=== PATIENT | female | born 1945 | race Caucasian/White ===

== ENCOUNTER → 2019-02-04 | Outpatient (CLI) | payer MEDICARE | END | disposition home or self-care (01) | LOC: CPPFTMAIN 13:35 | PROVIDERS: ATTEND Internal Medicine | DX: J43.9 Emphysema, unspecified (principal) | CPT/HCPCS: 94060; 94726; 94729 ==

== ENCOUNTER → 2019-02-24 | Outpatient (CLI) | payer MEDICARE ==
--- NOTE | 2019-02-25 14:11 | CTL ---
EXAMINATION TYPE: CT Low Dose Lung DATE OF EXAM ORDERED: 02/24/2019 HISTORY: 73-year-old female personal history of tobacco/nicotine use. Lung cancer screening CT DLP: 62.[address] CTDI: 1.7 mGy Automated exposure control for dose reduction was used. SCREENING VISIT: Baseline COMPARISON: 10/14/2012 TECHNIQUE: Low dose computed tomography scan was performed through the chest at 1 mm thick sections a nd reconstructed images in the coronal and sagittal plane. Additional coronal MIP reconstruction perf ormed. CT DIAGNOSTIC QUALITY: Satisfactory FINDINGS: Heart normal size without pericardial effusion. Dense mitral annular calcifications are present as we ll as three-vessel coronary artery calcifications. Aorta normal caliber with moderate atherosclerotic arch calcifications involve an configuration to th e aortic arch. Scattered nonenlarged mediastinal lymph nodes measure up to 9 mm in the precarinal region. No thoraci c lymphadenopathy by CT size criteria. Moderate centrilobular emphysema with biapical pleural-parenchymal scarring and additional scattered subpleural areas of scarring in the upper lungs. Mild diffuse bronchial wall thickening. No consolidation or pleural effusion. No suspicious pulmonary nodule or mass. Visualized upper abdomen shows stable low density thickening of the left adrenal gland and a small hi lar splenule. Severe focal atherosclerotic calcifications within the mid abdominal aorta at the level of the kidney s with patent lumen estimated at 4 mm. These calcifications and luminal narrowing have significantly progressed from 2013. The right kidney is now atrophic probably from underlying right renal artery os tial stenosis. Bones: Mild degenerative disc disease mid thoracic spine. IMPRESSION: 1. Lung rads 1-negative; no suspicious pulmonary nodule or mass. 2. COPD with moderate emphysema and prominent biapical pleural-parenchymal scarring. 3. CAD and dense mitral annular calcifications. 4. Progressive intraluminal atherosclerotic calcifications within the mid abdominal aorta narrowing t he lumen to an estimated 4 mm. Patient at risk for Leriche syndrome. Consider vascular surgery referr al. 5. In addition, there is new atrophy of the right renal artery as compared to 2013 likely secondary t o right renal artery ostial stenosis. RECOMMENDATION: 1. Continue annual low-dose lung cancer screening CT. 2. A smoking cessation. 3. Vascular surgery evaluation for the significant atherosclerotic calcifications involving the mid a bdominal aorta and likely the right renal artery. FOLLOW UP CT CHEST RECOMMENDATION: [address] LUNG RAD: Lung-Rad 1 Negative
== END | disposition home or self-care (01) ==
LOC: RADCTMAIN 15:41
PROVIDERS: ATTEND Internal Medicine
DX: Z12.2 Encounter for screening for malignant neoplasm of respiratory organs (principal); J43.9 Emphysema, unspecified; I25.10 Atherosclerotic heart disease of native coronary artery without angina pectoris; I05.9 Rheumatic mitral valve disease, unspecified; Z87.891 Personal history of nicotine dependence

== ENCOUNTER 2019-09-13 12:30 | Inpatient (IN) | payer MEDICARE ==
[2019-09-13] MEDS ORDERED: MECLIZINE 12.5 MG TAB PO STA (13:07)
[2019-09-13] MEDS ORDERED: ACETAMINOPHEN TAB 325 MG TAB PO STA (13:07)
--- NOTE | 2019-09-13 13:11 | ED ---
General Adult HPI - General Chief complaint: Neuro Symptoms/Deficit Stated complaint: vision/balance issues Time Seen by Provider: 09/13/19 12:55 Source: patient, family, RN notes reviewed Mode of arrival: wheelchair Limitations: no limitations - History of Present Illness Initial comments: Patient is a pleasant 74-year-old female presenting to the emergency department with concerns regarding right eye visual changes and balance problems. Patient did have an MRI done just around 10 days ago. Around 4 days ago patient had blurry vision in her right eye that persist. Patient also feels off balance which also persist. Patient has had a history of previous visual problems and dizziness in the past. Patient went to [facility] and did have computed tomography scan done. Troponin was also elevated. Patient was seen by cardiology Dr. Fabian as well as pulmonary. They felt patient would need MRI or patient did not want to stay there and came here and said today. Patient did leave AMA. Troponin around 1 AM was 0.4. Patient does complain of headache which is moderate. Patient does have frequent headaches similar to this. Patient describes visual changes with right eye as blurry. Patient states she has had that previously as well. Patient denies any chest pain or dyspnea. - Related Data Allergies Allergy/AdvReac Type Severity Reaction Status Date / Time No Known Allergies Allergy Verified 09/13/19 12:53 Review of Systems ROS Statement: Those systems with pertinent positive or pertinent negative responses have been documented in the HPI. ROS Other: All systems not noted in ROS Statement are negative. Constitutional: Denies: fever Eyes: Reports: vision change ENT: Denies: ear pain Respiratory: Denies: cough, dyspnea Cardiovascular: Denies: chest pain, palpitations Endocrine: Denies: fatigue Gastrointestinal: Denies: abdominal pain Genitourinary: Denies: dysuria Musculoskeletal: Denies: back pain Skin: Denies: rash Neurological: Reports: as per HPI, headache, abnormal gait. Denies: weakness, confusion Past Medical History Past Medical History: Hypertension Additional Past Medical History / Comment(s): dizziness History of Any Multi-Drug Resistant Organisms: None Reported Past Surgical History: Adenoidectomy, Hysterectomy, Tonsillectomy Additional Past Surgical History / Comment(s): bowel Past Psychological History: No Psychological Hx Reported Smoking Status: Current every day smoker Past Alcohol Use History: None Reported Past Drug Use History: None Reported General Exam Limitations: no limitations General appearance: alert, in no apparent distress Head exam: Present: atraumatic, normocephalic, other (No tenderness over temporal artery) Eye exam: Present: normal appearance, PERRL, EOMI, other (Funduscopic exam without abnormality.) Neck exam: Present: normal inspection Respiratory exam: Present: normal lung sounds bilaterally Cardiovascular Exam: Present: regular rate, normal rhythm GI/Abdominal exam: Present: soft. Absent: tenderness Extremities exam: Present: normal inspection Neurological exam: Present: alert, oriented X3, CN II-XII intact. Absent: motor sensory deficit Expanded Neurological exam: Present: protecting the airway Speech: Present: fluid speech Cranial nerves: EOM's Intact: Normal, Facial Sensation: Normal Cerebellar function: Finger to Nose: Normal Sensory exam: Upper Extremity Light Touch: Normal, Lower Extremity Light Touch: Normal Motor strength exam: RUE: 5, LUE: 5, RLE: 5, LLE: 5 Eye Response: (4) open spontaneously Motor Response: (6) obeys commands Verbal Response: (5) oriented Psychiatric exam: Present: normal affect, normal mood Skin exam: Present: normal color Course Vital Signs 09/13/19 12:50 Temperature 98.0 F Pulse Rate 96 Respiratory 18 Rate Blood Pressure 144/59 O2 Sat by Pulse 95 Oximetry EKG Findings - EKG Comments: EKG Findings:: Normal sinus rhythm 95. LA 118. QRS 70. QT 372. QTC 467. Normal axis. Normal QRS. No acute ST change. Medical Decision Making - Medical Decision Making Patient is aware of plan. Case was discussed with Dr. Rogel, who will admit cov ered for Dr. Sykes. Cardiology has also been paged for consult. - Lab Data Result diagrams: 09/13/19 13:23 09/13/19 13:23 Lab Results 09/13/19 09/13/19 09/13/19 Range/Units 13:23 13:23 13:23 WBC 15.0 H (3.8-10.6) k/uL RBC 4.77 (3.80-5.40) m/uL Hgb 13.0 (11.4-16.0) gm/dL Hct 42.5 (34.0-46.0) % MCV 89.2 (80.0-100.0) fL MCH 27.3 (25.0-35.0) pg MCHC 30.6 L (31.0-37.0) g/dL RDW 15.4 (11.5-15.5) % Plt Count 288 (150-450) k/uL Neutrophils % 91 % Lymphocytes % 6 % Monocytes % 3 % Eosinophils % 0 % Basophils % 0 % Neutrophils # 13.6 H (1.3-7.7) k/uL Lymphocytes # 0.8 L (1.0-4.8) k/uL Monocytes # 0.4 (0-1.0) k/uL Eosinophils # 0.0 (0-0.7) k/uL Basophils # 0.0 (0-0.2) k/uL Hypochromasia Slight ESR 75 H (0-20) mm/hr PT 9.4 (9.0-12.0) sec INR 0.9 (<1.2) APTT 21.6 L (22.0-30.0) sec Sodium 138 (137-145) mmol/L Potassium 3.9 (3.5-5.1) mmol/L Chloride 100 (98-107) mmol/L Carbon Dioxide 28 (22-30) mmol/L Anion Gap 10 mmol/L BUN 18 H (7-17) mg/dL Creatinine 0.68 (0.52-1.04) mg/dL Est GFR (CKD-EPI)AfAm >90 (>60 ml/min/1.73 sqM) Est GFR (CKD-EPI)NonAf 87 (>60 ml/min/1.73 sqM) Glucose 154 H (74-99) mg/dL Calcium 9.5 (8.4-10.2) mg/dL Total Bilirubin 0.4 (0.2-1.3) mg/dL AST 18 (14-36) U/L ALT 19 (4-34) U/L Alkaline Phosphatase 85 (38-126) U/L Troponin I (0.000-0.034) ng/mL Total Protein 7.0 (6.3-8.2) g/dL Albumin 3.9 (3.5-5.0) g/dL 09/13/19 Range/Units 13:23 WBC (3.8-10.6) k/uL RBC (3.80-5.40) m/uL Hgb (11.4-16.0) gm/dL Hct (34.0-46.0) % MCV (80.0-100.0) fL MCH (25.0-35.0) pg MCHC (31.0-37.0) g/dL RDW (11.5-15.5) % Plt Count (150-450) k/uL Neutrophils % % Lymphocytes % % Monocytes % % Eosinophils % % Basophils % % Neutrophils # (1.3-7.7) k/uL Lymphocytes # (1.0-4.8) k/uL Monocytes # (0-1.0) k/uL Eosinophils # (0-0.7) k/uL Basophils # (0-0.2) k/uL Hypochromasia ESR (0-20) mm/hr PT (9.0-12.0) sec INR (<1.2) APTT (22.0-30.0) sec Sodium (137-145) mmol/L Potassium (3.5-5.1) mmol/L Chloride (98-107) mmol/L Carbon Dioxide (22-30) mmol/L Anion Gap mmol/L BUN (7-17) mg/dL Creatinine (0.52-1.04) mg/dL Est GFR (CKD-EPI)AfAm (>60 ml/min/1.73 sqM) Est GFR (CKD-EPI)NonAf (>60 ml/min/1.73 sqM) Glucose (74-99) mg/dL Calcium (8.4-10.2) mg/dL Total Bilirubin (0.2-1.3) mg/dL AST (14-36) U/L ALT (4-34) U/L Alkaline Phosphatase (38-126) U/L Troponin I 0.486 H* (0.000-0.034) ng/mL Total Protein (6.3-8.2) g/dL Albumin (3.5-5.0) g/dL Disposition Clinical Impression: Transient cerebral ischemia, Elevated troponin Disposition: ADMITTED IP TO THIS HOSP Is patient prescribed a controlled substance at d/c from ED?: No Referrals: Medhat Sykes DO [Primary Care Provider] - 1-2 days Decision Time: 14:44
[2019-09-13 13:45] LABS: Basophils % (A) 0 %; Eosinophils % (A) 0 %; HCT 42.5 % (34.0-46.0); Hypochromasia Slight; Lymphocytes # (A) 0.8 k/uL (1.0-4.8); Lymphocytes % (A) 6 %; MCH 27.3 pg (25.0-35.0); MCHC 30.6 g/dL (31.0-37.0); MCV 89.2 fL (80.0-100.0); Mean Platelet Volume 7.9; Monocytes # (A) 0.4 k/uL (0-1.0); Monocytes % (A) 3 %; Neutrophils # (A) 13.6 k/uL (1.3-7.7); Neutrophils % (A) 91 %; Platelet Count 288 k/uL (150-450); RBC 4.77 m/uL (3.80-5.40); RDW 15.4 % (11.5-15.5)
[2019-09-13 13:57] LABS: ALT 19 U/L (4-34); AST 18 U/L (14-36); African American GFR (CKD) >90 (>60 ml/min/1.73 sqM); Albumin 3.9 g/dL (3.5-5.0); Alkaline Phosphatase 85 U/L (38-126); Anion Gap 10 mmol/L; Blood Urea Nitrogen 18 mg/dL (7-17); Calcium 9.5 mg/dL (8.4-10.2); Carbon Dioxide 28 mmol/L (22-30); Chloride 100 mmol/L (98-107); Glucose 154 mg/dL (74-99); Non-African American GFR(CKD) 87 (>60 ml/min/1.73 sqM); Potassium 3.9 mmol/L (3.5-5.1); Sodium 138 mmol/L (137-145); Total Bilirubin 0.4 mg/dL (0.2-1.3)
[2019-09-13 14:00] LABS: INR 0.9 (<1.2); Prothrombin Time 9.4 sec (9.0-12.0)
[2019-09-13 14:02] LABS: Partial Thromboplastin Time 21.6 sec (22.0-30.0)
--- NOTE | 2019-09-13 14:03 | XR ---
EXAMINATION TYPE: XR chest 2V DATE OF EXAM: 09/13/2019 HISTORY: altered mental status. REFERENCE: Previous study dated 10/09/2012. FINDINGS: Heart is mildly prominent. The lungs are clear. Pleural spaces are clear. IMPRESSION: NO ACTIVE INTRATHORACIC DISEASE.
[2019-09-13 14:35] LABS: Erythrocyte Sedimentation Rate 75 mm/hr (0-20)
[2019-09-13] MEDS ORDERED: ASPIRIN 325 MG TAB PO STA (14:44)
[2019-09-13] MEDS: SODIUM CHLORIDE 0.9% 1,000 ML IV SCH (15:24)
--- NOTE | 2019-09-13 15:30 | US ---
EXAMINATION TYPE: US carotid duplex BILAT DATE OF EXAM: 09/13/2019 COMPARISON: NONE CLINICAL HISTORY: Stenosis. Stenosis, vision changes EXAM MEASUREMENTS: RIGHT: Peak Systolic Velocity (PSV) cm/sec ----- Right CCA: 93.3 ----- Right ICA: 214.4 ----- Right ECA: 497.1 ICA/CCA ratio: 2.3 RIGHT: End Diastole cm/sec ----- Right CCA: 20.8 ----- Right ICA: 27.6 ----- Right ECA: 46.3 LEFT: Peak Systolic Velocity (PSV) cm/sec ----- Left CCA: 82.7 ----- Left ICA: 480.2 ----- Left ECA: 503.0 ICA/CCA ratio: 5.8 LEFT: End Diastole cm/sec ----- Left CCA: 14.1 ----- Left ICA: 50.7 ----- Left ECA: 0.0 VERTEBRALS (direction of flow): Right Vertebral: Antegrade Left Vertebral: Antegrade Rhythm: Normal Suboptimal study per technologist as patient unable to hold breath. Moderate to severe eccentric shad owing plaque seen centered near bilateral carotid bulbs. Increased peak systolic velocities and abnor mal ratios bilaterally with also elevated left internal carotid artery end-diastolic velocity. Abnorm al velocities also present in bilateral external carotid arteries. IMPRESSION: Suboptimal study. Severe apical scarring changes bilaterally with hemodynamically signif icant stenosis likely present in bilateral internal carotid arteries. Degree of stenosis estimated 50 -69% on the right and 70-99% on the left. Further investigation with direct catheter angiogram, CTA, or MRA of the neck can BE performed to further evaluate and/or treat. Criteria for Assigning % of Stenosis / Diameter reduction (Estimation based on the indirect measurements of the internal carotid artery velocities (ICA PSV). 1. Normal (no stenosis)=ICA PSV < 125 cm/s: ratio < 2.0: ICA EDV<40 cm/s. 2. Less than 50% stenosis=ICA PSV < 125 cm/s: ratio < 2.0: ICA EDV<40 cm/s. 3. 50 to 69% stenosis=ICA PSV of 125 to 230 cm/s: ration 2.0 ? 4.0: ICA EDV 40-100 cm/s. 4. Greater than 70% stenosis to near occlusion= ICA PSV > 230 cm/s: ratio > 4.0: ICA EDV > 100 cm/s. 5. Near occlusion= ICA PSV velocities may be low or undetectable: variable ratio and ICA EDV. 6. Total occlusion=unable to detect flow.
[2019-09-13] MEDS ORDERED: ACETAMINOPHEN TAB 500 MG TAB PO PRN (15:38)
[2019-09-13] MEDS ORDERED: ALPRAZolam 0.25 MG TAB PO PRN (15:38)
[2019-09-13] MEDS ORDERED: HYDROcodone/APAP 5-325MG 1 EACH TAB PO PRN (15:38)
--- NOTE | 2019-09-13 16:32 | HP ---
HISTORY AND PHYSICAL I am covering for Dr. Sykes. DATE OF SERVICE: 09/13/2019 CHIEF COMPLAINTS: Visual difficulties. HISTORY OF PRESENT ILLNESS: This 74-year-old woman with a past medical history of multiple medical problems including hypertension, dizziness, adenoidectomy, hysterectomy, being followed by Dr. Medhat Sykes in the outpatient setting, was having difficulty with vision from last Saturday. The patient apparently had an MRI in [facility]. The results are not available at this time. Because of difficulties, patient also had some difficulty walking and some unsteadiness of gait and falling more to the right side. The patient went to [facility] and MRI could not be done because of that reason, patient left the hospital AGAINST MEDICAL ADVICE and checked into [facility] ER at this time. In the ER, the patient noticed some weakness on the right side and the patient also had elevated troponin 0.486, suggesting possible acute [id number]-elevation myocardial infarction. Patient admitted for further evaluation and treatment. There is no history of fever, rigors or chills. No history of headache, loss of consciousness or seizures at this time. PAST MEDICAL HISTORY: History of hypertension, history of dizziness history of adenoidectomy, hysterectomy. MEDICATIONS: Prior to admission include home medications are: 1. Antivert 25 mg daily p.r.n. 2. Cozaar 50 mg p.o. daily. ALLERGIES: None. FAMILY HISTORY: No history of heart disease or strokes in the family. SOCIAL HISTORY: History of every day smoking. No history of alcohol intake. REVIEW OF SYSTEMS: ENT: No diminished vision, hearing. CARDIOVASCULAR system is as mentioned earlier. RESPIRATORY: As mentioned earlier. GI no nausea. no dysuria. NERVOUS SYSTEM as mentioned earlier. ALLERGIES/IMMUNOLOGY: No asthma or hayfever. MUSCULOSKELETAL as mentioned earlier. HEMATOLOGY/ONCOLOGY: No history of anemia. ENDOCRINE: No history of diabetes or hypothyroidism. CONSTITUTIONAL: As mentioned earlier. DERMATOLOGY negative. RHEUMATOLOGY: Negative. PSYCHIATRIC: As mentioned earlier. PHYSICAL EXAMINATION: GENERAL: Alert and oriented times three. VITAL SIGNS: Pulse 87, blood pressure 128/70, respiration 20, temperature 98 degrees, pulse ox 94% on room air. HEENT: Conjunctivae normal. Oral mucosa moist. NECK is no jugular venous distention. No carotid bruit. No lymph node enlargement. CARDIOVASCULAR system: S1, S2 muffled. RESPIRATION: Breath sounds diminished in the bases. No rhonchi. No crackles. ABDOMEN: Soft, nontender. No mass palpable. LEGS no edema. No swelling. NERVOUS SYSTEM higher functions as mentioned earlier. Otherwise, cranial nerves, right homonymous hemianopsia present, otherwise minimal weakness on the right side and increase in finger to nose incoordination also present. Gait is ataxic. SKIN: No ulcer, rash or bleeding. JOINTS: No active deforming arthropathy. LABS: WBC 15.8, hemoglobin 13, and the INR is 0.9. Sodium 130, potassium 3.9 and troponin 0.486. ASSESSMENT: 1. Right homonymous hemianopsia and weakness, rule out left occipital acute cerebrovascular accident and acute stroke. 2. Bilateral carotid stenosis. 3. Troponin 0.486, rule out acute yyt-JE-irhuqkd-elevation myocardial infarction. 4. Increased random blood sugar. 5. Increased WBC, possibly reactive. 6. History of hypertension. 7. History of dizziness. 8. History of adenoidectomy. 9. History of hysterectomy. 10.History of tonsillectomy. 11.History of continued ongoing nicotine dependence. RECOMMENDATIONS AND DISCUSSION: In this 74-year-old woman who presented with multiple complex medical issues, we will monitor the patient closely, continue the current medications, symptomatic treatment. Recommend monitor blood pressure closely. Otherwise neurology evaluation. The patient will require MRI to elucidate the anatomical sites of the stroke. A 2D echo with Doppler was also done which showed bilateral stenosis 50-60 percent right and 70 to 90% on the left. Recommend stroke protocol and possible transfer to a stroke center and vascular surgery consultation also may be needed. Further recommendations to follow. MMODL / IJN: [id number] /
--- NOTE | 2019-09-13 17:31 | CT ---
EXAMINATION TYPE: CT angio head neck DATE OF EXAM: 09/13/2019 HISTORY: cva COMPARISON: Carotid ultrasound earlier today. CT DLP: 359.5 mGycm. Automated Exposure Control for Dose Reduction was Utilized. TECHNIQUE: CTA scan of the head and neck are performed with IV Contrast, patient injected with 65cc mL of Isovue 370, axial images are obtained, coronal and sagittal reformatted images are reviewed. Th ree-D reconstructed images are created on an independent workstation and reviewed. FINDINGS: Carotid/Vascular Structures: Moderate peripheral plaque in the arch extending into branch vessels . B ovine type arch which is normal variant. Right common carotid artery shows normal origin from the rig ht brachiocephalic artery. Mild to moderate noncalcified plaque posteriorly proximal to mid segment r ight common carotid artery. More severe mixed plaque right carotid bulb extends into proximal interna l and external carotid arteries with significant stenosis at origin of the right external carotid art praveen greater than 90%. No significant stenosis in the right internal carotid artery is present. Mild t o moderate eccentric calcified plaque proximal segment tortuous course mid segment seen. Tqcg-pz-bvul rate peripheral calcified plaque supraclinoid segment. 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 [place] lumen diameter narrows to 2. 9 mm axial image 16 with reconstitution to 6.6 mm superior to this. There is diameter narrowing to 2. 6 mm raw data image 48 noted. Mild peripheral plaque along course of left common carotid artery. Severe calcified plaque left carot id bulb extends into proximal internal and external carotid arteries. Significant stenosis origin of left internal carotid artery is present. Lumen diameter narrowing difficult to accurately measure due to prominent calcified plaque but suspected under 1 mm with reconstitution to 6.0 mm superior to thi s. Significant stenosis left external carotid artery but not as severe as left internal or right exte rnal carotid artery is noted. Remainder internal carotid artery shows [id number] peripheral emmanuel cified plaque. There is patent anterior communicating artery. There is no significant focal stenosis or aneurysmal c hange in the anterior circulation. There is codominant vertebrobasilar system patent to basilar junct ion. Moderate calcified plaque with tortuosity at origin of left vertebral artery. There is no signif icant focal stenosis or aneurysmal change in the posterior circulation. Hypoplastic bilateral posteri or to indicating arteries are present. Other: Grade 1 retrolisthesis C5 on C6 with mild to moderate disc space narrowing and spurring. Mild to moderate disc space narrowing and spurring C6-C7. Scattered subcentimeter hypodense thyroid nodules appreciated bilaterally. Moderate emphysematous change noted in the visualized upper lungs. IMPRESSION: 1. No significant stenosis or aneurysmal change at the level of the jackson of [place]. 2. Confirmation of severe focal plaque left carotid bulb causing significant stenosis at origin of le ft internal carotid artery. Degree of stenosis measures near 90%. No significant stenosis in the righ t internal carotid artery as more severe plaque causes significant stenosis at origin of right health administrator al carotid artery between 90-99%. 3. 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
[2019-09-13] MEDS ORDERED: MECLIZINE 25 MG TAB PO PRN (18:30)
[2019-09-13] MEDS: NICOTINE 21MG/24HR PATCH TRANSDERM SCH (18:51)
[2019-09-13 19:38] LABS: Appearance,Urine Clear (Clear); Color,Urine Yellow
[2019-09-13 19:39] LABS: Bilirubin,Urine Negative (Negative); Glucose,Urine (UA) 1+ (Negative); Ketones,Urine Negative (Negative); Protein,Urine Negative (Negative); Specific Gravity,Urine 1.005 (1.001-1.035)
[2019-09-13 19:40] LABS: Blood,Urine Negative (Negative); Leukocyte Esterase,Urine Negative (Negative); Nitrite,Urine Negative (Negative); Urobilinogen,Urine <2.0 mg/dL (<2.0)
[2019-09-13] MEDS: HEPARIN SODIUM,PORCINE 5,000 UNIT/ML 1 ML VIAL SQ SCH (20:55)
[2019-09-14] MEDS: SODIUM CHLORIDE 0.9% 1,000 ML IV SCH ×3 (04:32→20:25)
[2019-09-14] MEDS: PANTOPRAZOLE 40 MG TABLET PO SCH ×2 (06:05→10:17)
[2019-09-14 06:08] LABS: Basophils % (A) 0 %; Eosinophils % (A) 0 %; HCT 36.7 % (34.0-46.0); HGB 10.8 gm/dL (11.4-16.0); Hypochromasia Marked; Lymphocytes # (A) 1.7 k/uL (1.0-4.8); Lymphocytes % (A) 17 %; MCH 26.9 pg (25.0-35.0); MCHC 29.5 g/dL (31.0-37.0); MCV 91.3 fL (80.0-100.0); Mean Platelet Volume 7.7; Monocytes # (A) 0.4 k/uL (0-1.0); Monocytes % (A) 4 %; Neutrophils # (A) 7.9 k/uL (1.3-7.7); Neutrophils % (A) 77 %; Platelet Count 236 k/uL (150-450); RBC 4.01 m/uL (3.80-5.40); RDW 15.7 % (11.5-15.5); WBC 10.2 k/uL (3.8-10.6)
[2019-09-14 06:15] LABS: African American GFR (CKD) >90 (>60 ml/min/1.73 sqM); Anion Gap 2 mmol/L; Blood Urea Nitrogen 16 mg/dL (7-17); Carbon Dioxide 28 mmol/L (22-30); Chloride 110 mmol/L (98-107); Cholesterol 150 mg/dL (<200); Glucose 86 mg/dL (74-99); HDL Cholesterol 46 mg/dL (40-60); LDL Cholesterol,Calculated 78 mg/dL (0-99); Non-African American GFR(CKD) >90 (>60 ml/min/1.73 sqM); Potassium 4.1 mmol/L (3.5-5.1); Sodium 140 mmol/L (137-145); Triglycerides 128 mg/dL (<150)
[2019-09-14] MEDS ORDERED: ATORVASTATIN 20 MG TAB PO SCH (09:00)
--- NOTE | 2019-09-14 09:56 | MR ---
EXAMINATION TYPE: MR brain wo/w con DATE OF EXAM: 09/14/2019 COMPARISON: 09/13/2019 HISTORY: Status and visual changes TECHNIQUE: Multiplanar, multisequence images of the brain and brainstem is performed without and with IV contras t, utilizing 5.5 mL intravenous Gadavist . FINDINGS: Diffusion weighted images demonstrate abnormal signal involving the seema on the right as we ll as the left cerebellar peduncle and left cerebellar hemisphere. There is an additional focus withi n the cerebellar vermis. All measure less than 1 cm. Additionally there is a focal area of abnormal s ignal measuring 6 mm within the right basal ganglia and deep white matter. There are 2 additional pun ctate areas within the right frontal and parietal white matter. There is mild generalized degenerative change with multifocal areas of abnormal signal in the white m atter which are nonspecific but most typical remote ischemic change. Small focal areas of abnormal si gnal involving the cerebral peduncle are compatible with remote ischemic change. Midline structures demonstrate normal morphology. The craniocervical junction appears within normal limits. Post contrast images demonstrate no abnormal enhancement. The dural venous sinuses appear pa tent. There is a prominent cisterna magna. Changes of chronic mastoiditis and sinusitis noted. There is a d egree of ectasia of the optic nerves with a trace amount of fluid surrounding the sheath. Report call ed to the patient's nurse. IMPRESSION: 1. There are multiple 1 cm or less areas of abnormal signal on diffusion involving different vascular distributions. Findings compatible with acute ischemia. Given the multiplicity of vascular distribut ion consider embolic phenomenon. 2. Degenerative and nonspecific white matter changes most typical of remote ischemia. 3. Chronic sinusitis and mastoiditis.
--- NOTE | 2019-09-14 10:06 | P.GSCN ---
History of Present Illness Consult date: 09/14/19 Reason for Consult: Possible TIA, bilateral internal carotid artery stenosis History of present illness: This is a pleasant 74-year-old female who presented to the emergency department yesterday with complaints of right visual disturbances and dizziness that started last Saturday. Patient states that she was preparing supper and noticed that her her vision in her right eye had become blurry, lasting longer than normal. She felt that she became unsteady on her feet. Denies any falls. Patient states she called Dr. Sykes office on Saturday and they advised her to go to the emergency department. The patient went to [facility] on Saturday and was admitted until Saturday. Patient states that she felt nothing was being done so she left AGAINST MEDICAL ADVICE and came to this hospital yesterday. States that she does have chronic dizziness as well as visual disturbances that she reports as floaters. She states that she has seen an near east archeology professor in the past and states that it's related to migraine headaches. However she denies having migraine headaches. She currently states that she is asymptomatic. Denies any upper or lower extremity weakness bilaterally, speech difficulties, difficulty swallowing, still states that she has some mild blurriness in the right eye. She currently denies any shortness of breath or chest pain, or any headaches. States that she is able to ambulate without assistance. She states that she had a carotid ultrasound done approximately [address] Sykes office, and stated that it was normal. He has a past medical history that includes hypertension, dizziness, and smoking. She states she smokes 1 pack per day for approximately the past 50 years. Her home medications include Antivert as needed and Cozaar. She had elevated troponin upon admission. Carotid duplex was completed showing severe apical scarring changes bilaterally with hemodynamically significant stenosis likely present in bilateral internal carotid arteries. Degree of stenosis estimated 50-69% on the right and 70-99% on the left. Further investigation with direct catheter angiogram, CTA, or MRA of the neck can be performed to further evaluate and/or treat. CTA of head and neck was completed which showed no significant stenosis or aneurysmal change level burns paiute of [place]. Confirmation of severe focal plaque left carotid bulb causing significant stenosis at origin of left internal carotid artery. Degree of stenosis measures near 90%. No significant stenosis of the right internal carotid artery has more severe plaque causes significant stenosis at the origin of the right external carotid artery between 19 and 99%. 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 Review of Systems Review of systems was completed, all pertinent positives and negatives as stated in the HPI. Past Medical History Past Medical History: COPD, Hypertension Additional Past Medical History / Comment(s): dizziness History of Any Multi-Drug Resistant Organisms: None Reported Past Surgical History: Adenoidectomy, Hysterectomy, Tonsillectomy Additional Past Surgical History / Comment(s): bowel resection Past Psychological History: No Psychological Hx Reported Smoking Status: Current every day smoker Past Alcohol Use History: None Reported Past Drug Use History: None Reported - Past Family History Mother Family Medical History: Cancer, Congestive Heart Failure (CHF) Father Family Medical History: Unable to Obtain Medications and Allergies Home Medications Medication Instructions Recorded Confirmed Type Losartan [Cozaar] 50 mg PO DAILY 09/13/19 09/13/19 History Meclizine [Antivert] 25 mg PO DAILY PRN 09/13/19 09/13/19 History Allergies Allergy/AdvReac Type Severity Reaction Status Date / Time No Known Allergies Allergy Verified 09/13/19 14:50 Surgical - Exam Vital Signs Temp Pulse Resp BP Pulse Ox 98.0 F 96 18 144/59 95 09/13/19 12:50 09/13/19 12:50 09/13/19 12:50 09/13/19 12:50 09/13/19 12:50 General appearance: The patient is alert, oriented, in no acute distress. HET: Head is normocephalic and atraumatic. Pupils are equal and reactive. Oropharynx is clear without lesions. Neck: Supple without lymphadenopathy. Trachea midline. Audible bruit bilaterally, greater left than right. Heart: S1 S2. Regular rate and rhythm. Lungs: No crackles or wheezes are heard. Abdomen: Soft, nontender, nondistended with bowel sounds. Extremities: Normal skin color and turgor. No cyanosis, rash, ulceration, clubbing, or edema. Radial and pedal pulses are 2/4 bilaterally. Neurological: No focal deficits. Alert and oriented 3. Patient answers questions and follows commands appropriately. Strength and sensation are grossly intact. Speech is fluent, no facial asymmetry. Bilateral upper and lower extremity strength 5 out of 5. Results Carotid duplex: Reviewed CT angiogram head and neck: Reviewed MRI brain: Pending results - Labs 09/14/19 05:43 09/14/19 05:43 Abnormal Lab Results - Last 24 Hours (Table) 09/13/19 09/13/19 09/13/19 Range/Units 13:23 13:23 13:23 WBC 15.0 H (3.8-10.6) k/uL Hgb (11.4-16.0) gm/dL MCHC 30.6 L (31.0-37.0) g/dL RDW (11.5-15.5) % Neutrophils # 13.6 H (1.3-7.7) k/uL Lymphocytes # 0.8 L (1.0-4.8) k/uL ESR 75 H (0-20) mm/hr APTT 21.6 L (22.0-30.0) sec Chloride (98-107) mmol/L BUN 18 H (7-17) mg/dL Glucose 154 H (74-99) mg/dL Calcium (8.4-10.2) mg/dL Troponin I (0.000-0.034) ng/mL 09/13/19 09/14/19 09/14/19 Range/Units 13:23 05:43 05:43 WBC (3.8-10.6) k/uL Hgb 10.8 L (11.4-16.0) gm/dL MCHC 29.5 L (31.0-37.0) g/dL RDW 15.7 H (11.5-15.5) % Neutrophils # 7.9 H (1.3-7.7) k/uL Lymphocytes # (1.0-4.8) k/uL ESR (0-20) mm/hr APTT (22.0-30.0) sec Chloride 110 H (98-107) mmol/L BUN (7-17) mg/dL Glucose (74-99) mg/dL Calcium 8.0 L (8.4-10.2) mg/dL Troponin I 0.486 H* (0.000-0.034) ng/mL Diabetes panel 09/13/19 09/14/19 Range/Units 13:23 05:43 Sodium 138 140 (137-145) mmol/L Potassium 3.9 4.1 (3.5-5.1) mmol/L Chloride 100 110 H (98-107) mmol/L Carbon Dioxide 28 28 (22-30) mmol/L BUN 18 H 16 (7-17) mg/dL Creatinine 0.68 0.54 (0.52-1.04) mg/dL Glucose 154 H 86 (74-99) mg/dL Calcium 9.5 8.0 L (8.4-10.2) mg/dL AST 18 (14-36) U/L ALT 19 (4-34) U/L Alkaline Phosphatase 85 (38-126) U/L Total Protein 7.0 (6.3-8.2) g/dL Albumin 3.9 (3.5-5.0) g/dL Triglycerides 128 (<150) mg/dL HDL Cholesterol 46 (40-60) mg/dL Calcium panel 09/13/19 09/14/19 Range/Units 13:23 05:43 Calcium 9.5 8.0 L (8.4-10.2) mg/dL Albumin 3.9 (3.5-5.0) g/dL Pituitary panel 09/13/19 09/14/19 Range/Units 13:23 05:43 Sodium 138 140 (137-145) mmol/L Potassium 3.9 4.1 (3.5-5.1) mmol/L Chloride 100 110 H (98-107) mmol/L Carbon Dioxide 28 28 (22-30) mmol/L BUN 18 H 16 (7-17) mg/dL Creatinine 0.68 0.54 (0.52-1.04) mg/dL Glucose 154 H 86 (74-99) mg/dL Calcium 9.5 8.0 L (8.4-10.2) mg/dL Adrenal panel 09/13/19 09/14/19 Range/Units 13:23 05:43 Sodium 138 140 (137-145) mmol/L Potassium 3.9 4.1 (3.5-5.1) mmol/L Chloride 100 110 H (98-107) mmol/L Carbon Dioxide 28 28 (22-30) mmol/L BUN 18 H 16 (7-17) mg/dL Creatinine 0.68 0.54 (0.52-1.04) mg/dL Glucose 154 H 86 (74-99) mg/dL Calcium 9.5 8.0 L (8.4-10.2) mg/dL Total Bilirubin 0.4 (0.2-1.3) mg/dL AST 18 (14-36) U/L ALT 19 (4-34) U/L Alkaline Phosphatase 85 (38-126) U/L Total Protein 7.0 (6.3-8.2) g/dL Albumin 3.9 (3.5-5.0) g/dL Assessment and Plan Assessment: 1. Bilateral internal carotid artery stenosis, left greater than right. 2. Visual changes and disturbances of the right eye 3. Gait and balance instability 4. Hypertension 5. Chronic dizziness/vertigo Plan: Discussed patient with Dr. Hassan. Reviewed CT angiogram and carotid duplex studies with Dr. Hassan. Awaiting MRI results. Echocardiogram has been ordered. Will start patient on aspirin, Plavix, and atorvastatin. Neurology and cardiology also on consult. Further recommendations to follow, pending MRI results. Recommend smoking cessation to patient. Patient is already on nicotine patch at this time. You for this consultation and allowing us to take part plan of care of this patient during her hospital stay. The above dictated assessment and findings were discussed with Dr. Hassan. The impression and plan of care have been directed as dictated.
[2019-09-14] MEDS: HEPARIN SODIUM,PORCINE 5,000 UNIT/ML 1 ML VIAL SQ SCH ×2 (10:17→20:24)
[2019-09-14] MEDS: NICOTINE 21MG/24HR PATCH TRANSDERM SCH (10:17)
[2019-09-14] MEDS: LOSARTAN 50 MG TAB PO SCH (10:17)
[2019-09-14] MEDS ORDERED: ASPIRIN 325 MG TAB PO SCH (12:00)
--- NOTE | 2019-09-14 12:47 | CONS ---
CONSULTATION CHIEF COMPLAINT: Focal weakness. HISTORY OF PRESENT ILLNESS: This is a 74-year-old lady with history of hypertension and prior episodes of dizziness, who presented to hospital with visual difficulty. She had problems with the right eye vision. Initially admitted to [facility] [place] from where she left against medical advise and admitted herself to the emergency room at [facility]. Her predominant symptom is in the form of right-sided weakness and right eye vision loss, both of which have improved since being admitted to hospital. I have been consulted because of mild elevation in troponin. I only have 1 troponin value on her. EKG does not reveal ischemic changes and she does not have any cardiac symptoms. She denies chest pain, difficulty in breathing, palpitations or syncope. She had a bilateral carotid duplex study done that showed a 70% to 90% stenosis involving left internal carotid artery and a 50% to 60 percent involving right internal carotid artery. An echocardiogram had been ordered and the patient is to have an MRI also. Patient's predominant problem is her CVA. The elevated troponin is of no clear clinical significance at this time. I am going to obtain further troponins to see what happens to the troponin level. PAST MEDICAL HISTORY: Significant for hypertension, dizziness. PAST SURGICAL HISTORY: Significant for hysterectomy and adenoidectomy. MEDICATIONS: Medications at home included Antivert and Cozaar. ALLERGIES: There are no known drug allergies. FAMILY HISTORY: Negative for premature coronary artery disease. SOCIAL HISTORY: Significant for smoking. There is no history of EtOH abuse or drug abuse. REVIEW OF SYSTEMS: HEENT is significant for diminished vision. Cardiovascular negative. Respiratory negative. GI negative. : Negative. HAND EMBROIDERER as described above. ALLERGY/IMMUNOLOGY negative. ENDOCRINE: Negative. HAND EMBROIDERER is as described above. CONSTITUTIONAL: Negative. ONCOLOGICAL negative. RHEUMATOLOGICAL negative. PSYCH negative. PHYSICAL EXAMINATION: On exam, patient is comfortable at rest. Vital signs are stable. There is no jugular venous distention. Carotid upstroke is normal. There is no bruit. Chest exam reveals good air entry bilaterally. Heart exam reveals first and second heart sounds and a systolic murmur at the left lower sternal border. ABDOMEN: Soft. Exam of extremities did not reveal any edema. Peripheral pulses are felt. HAND EMBROIDERER exam reveals mild weakness of the right side. LABS: Show a hemoglobin of 10.8, platelet count is 236, potassium is 4.1. One set of troponin is mildly elevated. LDL cholesterol is 78. ASSESSMENT: 1. Elevated troponin. 2. Cerebrovascular accident with right hemiparesis. 3. Severe left internal carotid artery stenosis. PLAN: Treat the patient with aspirin, Lipitor, Cozaar. Have optimal blood pressure control. I will obtain a 2D echo to assess her LV function. If she is not undergoing any carotid intervention at this time, we can discharge her home and pursue her workup in the outpatient setting. Once the stroke issues resolve, I am going to perform a stress test on her to evaluate for ischemia and if necessary, workup. MMODL / IJN: [id number] /
[2019-09-14] MEDS: CLOPIDOGREL 75 MG TAB PO SCH (17:43)
--- NOTE | 2019-09-14 18:19 | P.PN ---
Subjective Progress Note Date: 09/14/19 This is a 74-year-old female admitted with possible acute CVA, bilateral carotid stenosis, elevated troponins and multiple other medical issues. Brain MRI reported multiple 1 cm or less areas of abnormal signal on diffusion involving different vascular distributions compatible with acute ischemia, possible embolic phenomenon. Evaluated by vascular surgery, recommendations noted and appreciated. Patient reports she has seen an locomotive firer in the past regarding floaters in both eyes and dizziness that were attributed to migraine headaches, yet she denies migraine headaches. Continues to have some right eye blurriness this morning-but states improved, denies motor strength loss. Reports fluctuating dizziness with exertion and at rest. Denies chest pain, palpitations or shortness of breath. Systolic pressures ranging from 120s to 170s. Maintaining O2 sats in the 90s on room air. Afebrile, normal WBC. Evaluated by cardiology, serial troponins ordered as initial troponin elevated. Objective - Vital Signs Vital signs: Vital Signs Temp 97.8 F 09/14/19 08:00 Pulse 88 09/14/19 08:00 Resp 18 09/14/19 08:00 BP 177/75 09/14/19 08:00 Pulse Ox 94 L 09/14/19 08:00 Intake & Output 09/13/19 09/14/19 09/14/19 18:59 06:59 18:59 Weight 54.431 kg 59.6 kg Other: # Voids 1 - Exam PHYSICAL EXAM: VITAL SIGNS: As above GENERAL: Sitting up in bed, no acute distress HEENT: No facial asymmetry, Conjunctivae normal. eyes normal. NECK: Supple, No JVD. No thyroid enlargement. No LNs. Trachea midline, Left greater than right Bilateral bruit- CARDIOVASCULAR: S1, S2 regular. Systolic murmur. RESPIRATION: Breath sounds diminished in the bases. No rhonchi or crackles. No bronchial breathing. ABDOMEN: Soft, nontender . No guarding. no masses palpable. No ascites, No hepatosplenomegaly.Bowel sounds heard. LEGS: No edema. no swelling PSYCHIATRY: Alert and oriented X3, mood and affect normal. NERVOUS SYSTEM: Cranial N 2-12 grossly normal. Moves all 4 limbs. Speech fluent, appropriate. No focal deficits. Strength and sensation grossly intact. Skin: Warm and dry, no rash - Labs CBC & Chem 7: 09/14/19 05:43 09/14/19 05:43 Labs: Abnormal Lab Results - Last 24 Hours (Table) 09/13/19 09/13/19 09/13/19 Range/Units 13:23 13:23 13:23 WBC 15.0 H (3.8-10.6) k/uL Hgb (11.4-16.0) gm/dL MCHC 30.6 L (31.0-37.0) g/dL RDW (11.5-15.5) % Neutrophils # 13.6 H (1.3-7.7) k/uL Lymphocytes # 0.8 L (1.0-4.8) k/uL ESR 75 H (0-20) mm/hr APTT 21.6 L (22.0-30.0) sec Chloride (98-107) mmol/L BUN 18 H (7-17) mg/dL Glucose 154 H (74-99) mg/dL Calcium (8.4-10.2) mg/dL Troponin I (0.000-0.034) ng/mL 09/13/19 09/14/19 09/14/19 Range/Units 13:23 05:43 05:43 WBC (3.8-10.6) k/uL Hgb 10.8 L (11.4-16.0) gm/dL MCHC 29.5 L (31.0-37.0) g/dL RDW 15.7 H (11.5-15.5) % Neutrophils # 7.9 H (1.3-7.7) k/uL Lymphocytes # (1.0-4.8) k/uL ESR (0-20) mm/hr APTT (22.0-30.0) sec Chloride 110 H (98-107) mmol/L BUN (7-17) mg/dL Glucose (74-99) mg/dL Calcium 8.0 L (8.4-10.2) mg/dL Troponin I 0.486 H* (0.000-0.034) ng/mL Assessment and Plan Assessment: Right homonymous hemianopsia, possible acute CVA, possible embolic phenomenon Bilateral internal carotid artery stenosis, left greater than right Elevated troponins, possible acute NSTEMI, serial troponins in progress Hypertension Chronic dizziness, vertigo Ongoing nicotine dependence Plan: Continue on current medication regime ,monitoring and symptomatic treatment. Echo pending. Optimizing blood pressure as per cardiology. Orthostatic vitals every shift. Scheduled for PATI tomorrow .Evaluated by vascular, recommendations noted including outpatient carotidectomy. Outpatient stress test also discussed with patient as per cardiology. Neurology evaluation and review of MRI pending. Follow closely with all consults. Prognosis guarded given multiple complex medical issues. The impression and plan of care has been dictated as directed. : I performed a history and examination of this patient, discussed the same with the dictator. I agree with the dictator's note ,documented as a scribe. Any additional findings or plans will be noted.
--- NOTE | 2019-09-14 18:35 | P.CNNES ---
History of Present Illness Consult date: 09/14/19 Reason for Consult: abnormal MRI, visual difficulty and dizziness Chief complaint: visual difficulty. Weakness on the right side of body. History of Present Illness: this is a new neurology consult for 74-year-old female who was initially admitted at [facility] but left AMA to be admitted to the emergency room at [facility]. The patient reports that prior to admission over the past several months she has been having dizzy spells that are occurring while cooking or sitting. Sometimes associated with nausea. She began having visual problems that she describes as a horizontal visual field cut in both eyes that also began within the last month. She has seen her primary care physician for this and was to be referred out for an outpatient workup. The patient states that overall she has not been doing well over the last 2-3 years and still however continues to smoke regularly. Patient does have COPD but despite this she has not been motivated to stop smoking. This past Saturday the patient had an episode of falling while trying to walk. However today since admission she's been walking with assistance. Patient denies ever having any knowledge of having a stroke. She has seen an outside pr ovider for the spells of dizziness and horizontal visual cut prior to admission and was told that these were migraines. The patient also reports that over the past several months she's been having increasing difficulty with swallowing liquids and solids. Currently the patient is experiencing some right sided weakness but this is fluctuating and improving. I have reviewed the CT angiogram head and neck which shows extensive atheros clerotic disease involving the extracranial system. There is severe mixed plaque in the right carotid bulb and proximal ICA and ECA with significant stenosis at the origin of the right ECA measuring more than 90%. There is no stenosis noted in the right internal carotid artery. There is mild to moderate peripheral calcified plaque in the supraclinoid segment. 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 There is also mild plaque along the left common carotid artery. Severe calcified plaque in the left carotid bulb extending into the proximal ICA and ECA. Significant stenosis in the left ICA. The brain MRI does show multiple 1 m areas of abnormality in DWI consistent with potential cardioembolic source for the infarctions. Cardiothoracic surgery is now on the case as well as cardiology. Patient has been placed on dual antiplatelet therapy which is appropriate in this setting. Current plan is to proceed with further workup for embolic source such as with a transesophageal echo. Review of Systems a 10 point review of systems was obtained with positive pertinent negatives related to the history of present illness. The patient does report poor sleep continuity which is suspicious for sleep disordered breathing. Past Medical History Past Medical History: COPD, Hypertension Additional Past Medical History / Comment(s): dizziness History of Any Multi-Drug Resistant Organisms: None Reported Past Surgical History: Adenoidectomy, Hysterectomy, Tonsillectomy Additional Past Surgical History / Comment(s): bowel resection Past Psychological History: No Psychological Hx Reported Smoking Status: Current every day smoker Past Alcohol Use History: None Reported Past Drug Use History: None Reported - Past Family History Mother Family Medical History: Cancer, Congestive Heart Failure (CHF) Father Family Medical History: Unable to Obtain Medications and Allergies Home Medications Medication Instructions Recorded Confirmed Type Losartan [Cozaar] 50 mg PO DAILY 09/13/19 09/13/19 History Meclizine [Antivert] 25 mg PO DAILY PRN 09/13/19 09/13/19 History Allergies Allergy/AdvReac Type Severity Reaction Status Date / Time No Known Allergies Allergy Verified 09/13/19 14:50 Physical Examination - Vital Signs Vital Signs: Vital Signs Temp Pulse Resp BP Pulse Ox 09/14/19 12:00 82 20 164/72 94 L 09/14/19 08:00 97.8 F 88 18 177/75 94 L 09/14/19 04:00 98.1 F 78 18 126/61 94 L 09/13/19 23:48 97.3 F L 80 19 128/63 93 L 09/13/19 20:00 98 F 77 19 137/57 93 L Intake and Output 09/14/19 09/14/19 09/14/19 06:59 14:59 22:59 Other: # Voids 1 1 1 # Bowel Movements 1 Weight 59.6 kg Gen. physical exam Appearance: Patient awake alert no acute distress HEENT: Clears sclera small oropharynx. Narrow posterior pharynx Khurram Newsome grade 2. Chest: Clear to auscultation: Cardiac: Regular rate and rhythm no murmurs noted. bilateral carotid bruits present Extremities: Mild clubbing of the digits noted. Arthritic changes noted in the hands bilaterally. No tenderness in the calves palpated. Pulses: Radial pedal pulses are equal and symmetric. neurologic exam Mental status: Awake alert oriented times place person. Pupils: 2 mm equally reactive to light and accommodation. Cranial nerve examination: Cranial nerves III through XII are intact. Motor examination: Normal muscle bulk and tone throughout. Pronator drift negative. No abnormal involuntary movements noted. Visual field testing: Grossly intact to finger counting throughout. Deep tendon reflexes: +2 over biceps brachial radialis bilaterally. Patellar reflexes are +2 bilaterally. Ankle jerks are intact bilaterally. Plantar responses are withdrawal bilaterally. No ankle clonus is elicited. Sensory examination is grossly intact to light touch and pinprick throughout. Coordination testing: Intact to finger to nose testing with eyes open and eyes closed. He'll thompson maneuver is intact. No dysmetria noted. Gait examination: Deferred Results all labs reviewed including CT angiogram head and neck and MRI of the brain - Laboratory Findings CBC and BMP: 09/14/19 05:43 09/14/19 05:43 Abnormal Lab Findings: Abnormal Labs 09/13/19 09/13/19 09/13/19 13:23 13:23 13:23 WBC 15.0 H Hgb MCHC 30.6 L RDW Neutrophils # 13.6 H Lymphocytes # 0.8 L ESR 75 H APTT 21.6 L Chloride BUN 18 H Glucose 154 H Calcium Troponin I 09/13/19 09/14/19 09/14/19 13:23 05:43 05:43 WBC Hgb 10.8 L MCHC 29.5 L RDW 15.7 H Neutrophils # 7.9 H Lymphocytes # ESR APTT Chloride 110 H BUN Glucose Calcium 8.0 L Troponin I 0.486 H* Assessment and Plan Assessment: This is a 74-year-old female with significant atherosclerotic disease and evidence of potential cardioembolic infarcts. She is presenting with stepwise progression of symptoms suspicious for cardioembolic stroke. The symptoms involve intermittent dizzy spells, nausea as well as field cuts in both eyes. The CT angiogram of her extra- cranial system shows significant atherosclerotic disease as well as the intra-cranial system on the left. In particular there is significant stenosis involving the left internal carotid artery. The patient currently is on dual antiplatelet therapy which is appropriate along with evaluation by cardiothoracic surgery to determine if she would be a candidate for stenting or carotid endarterectomy. Her examination today was non-focal. This patient should also be evaluated for swallowing impairment with a formal evaluation by speech therapy. Patient also could potentially be a good candidate for rehab. The patient should undergo formal cardiology evaluation to include a transesophageal echo as well as stress test. I do suspect that this patient is an increased risk for cardioembolic events as well. Recommendations 1. Continue with dual antiplatelet therapy with Plavix 75 mg and aspirin 81 mg 2. Provide GI prophylaxis for ulcer prevention with Pepcid 40 mg 3. Statin: Atorvastatin 40 mg per day. 4. Healthy heart diet. 5. Continue with nicotine patch. 6. Formal speech therapy evaluation 7. Continue with physical therapy and OT evaluation. 8. Would recommend patient for acute rehab however patient was not receptive to this and was requesting home therapy. 9. Blood pressure management: Maintain systolic blood pressure less than 140 diastolic pressures between 80 and 90. 10. Erie-3 fatty acid 1 twice daily with food. 11. This patient will require close follow-up with a neurologist as an outpatient to monitor her dual antiplatelet therapy and risk factors for stroke. 12. Would recommend this patient be evaluated for sleep disordered breathing as an outpatient. Sleep apnea can also be the third leading risk factor for stroke independent of diabetes, hypertension and atrial fibrillation. Sleep disordered breathing is also the primary cause for drug resistant hypertension. Thank you for this consultation. Neurology will follow closely on a daily basis and communicate with staff and family for recommendations. Pam Carter M.D. Board Certified in Neurology and Sleep Medicine
[2019-09-15 07:30] LABS: Basophils % (A) 0 %; Eosinophils # (A) 0.1 k/uL (0-0.7); Eosinophils % (A) 1 %; HCT 36.8 % (34.0-46.0); HGB 10.9 gm/dL (11.4-16.0); Hypochromasia Marked; Lymphocytes # (A) 1.6 k/uL (1.0-4.8); Lymphocytes % (A) 24 %; MCHC 29.7 g/dL (31.0-37.0); MCV 90.9 fL (80.0-100.0); Mean Platelet Volume 7.7; Monocytes # (A) 0.4 k/uL (0-1.0); Monocytes % (A) 6 %; Neutrophils # (A) 4.6 k/uL (1.3-7.7); Neutrophils % (A) 67 %; Platelet Count 234 k/uL (150-450); RBC 4.04 m/uL (3.80-5.40); RDW 15.7 % (11.5-15.5); WBC 6.8 k/uL (3.8-10.6)
[2019-09-15 07:45] LABS: African American GFR (CKD) >90 (>60 ml/min/1.73 sqM); Anion Gap 4 mmol/L; Blood Urea Nitrogen 12 mg/dL (7-17); Calcium 8.1 mg/dL (8.4-10.2); Carbon Dioxide 31 mmol/L (22-30); Chloride 106 mmol/L (98-107); Cholesterol 138 mg/dL (<200); Glucose 72 mg/dL (74-99); HDL Cholesterol 45 mg/dL (40-60); LDL Cholesterol,Calculated 65 mg/dL (0-99); Non-African American GFR(CKD) >90 (>60 ml/min/1.73 sqM); Potassium 3.8 mmol/L (3.5-5.1); Sodium 141 mmol/L (137-145); Triglycerides 141 mg/dL (<150)
[2019-09-15] MEDS: HEPARIN SODIUM,PORCINE 5,000 UNIT/ML 1 ML VIAL SQ SCH (10:40)
[2019-09-15] MEDS: LOSARTAN 50 MG TAB PO SCH (10:40)
[2019-09-15] MEDS: ASPIRIN 81 MG PO SCH (10:40)
[2019-09-15] MEDS: ATORVASTATIN 40 MG TAB PO SCH (10:40)
[2019-09-15] MEDS: CLOPIDOGREL 75 MG TAB PO SCH (10:40)
[2019-09-15] MEDS: NICOTINE 21MG/24HR PATCH TRANSDERM SCH (10:41)
[2019-09-15] MEDS: SODIUM CHLORIDE 0.9% 1,000 ML IV SCH ×2 (10:41→19:23)
[2019-09-15] MEDS: amLODIPine 5 MG TAB PO SCH (10:47)
[2019-09-15 11:41] VITALS: RESP 18
--- NOTE | 2019-09-15 13:04 | P.PN ---
Subjective Progress Note Date: 09/15/19 Patient is seen and examined at the bedside. The patient denies any changes through the night. States that she still has visual loss in the right eye. She denies any weakness in her bilateral upper and lower extremities. States that she's been ambulating to the bathroom with a walker. States that she still does have some dizziness when getting up. Denies any chest pain or shortness of breath. Patient denies any difficulty swallowing. Cardiology nurse practitioner stated patient had an episode of proximal atrial fibrillation through the night. Cardiology has canceled the transesophageal echo ordered for today. Cardiology plans to initiate oral anticoagulation. MRI was completed yesterday showing multiple 1 cm or less areas of abnormal signal on diffusion involving different vascular distributions, compatible with acute ischemia, given multiplicity of vascular distribution consider embolic phenomenon. Neurology is also following patient. Dr. Donaldson saw the patient at the bedside yesterday, discussed with her and her son that they recommend a vascular surgical procedure for her severe carotid stenosis in the near future. Objective - Vital Signs Vital signs: Vital Signs Temp 98 F 09/15/19 04:00 Pulse 94 09/15/19 04:00 Resp 19 09/15/19 04:00 BP 171/74 09/15/19 04:00 Pulse Ox 96 09/15/19 07:24 Intake & Output 09/14/19 09/15/19 09/15/19 18:59 06:59 18:59 Intake Total 240 0 0 Balance 240 0 0 Weight 59.3 kg Intake: Oral 240 0 0 Other: # Voids 1 3 # Bowel Movements 1 - Exam General appearance: The patient is alert, oriented, in no acute distress. HET: Head is normocephalic and atraumatic. Pupils are equal and reactive. Oropharynx is clear without lesions. Neck: Supple without lymphadenopathy. Trachea midline. Audible bruit bilaterally, greater left than right. Heart: S1 S2. Regular rate and rhythm. Lungs: No crackles or wheezes are heard. Abdomen: Soft, nontender, nondistended with bowel sounds. Extremities: Normal skin color and turgor. No cyanosis, rash, ulceration, clubbing, or edema. Radial and pedal pulses are 2/4 bilaterally. Neurological: No focal deficits. Alert and oriented 3. Patient answers questions and follows commands appropriately. Strength and sensation are grossly intact. Speech is fluent, no facial asymmetry. Bilateral upper and lower extremity strength 5 out of 5. - Labs CBC & Chem 7: 09/15/19 07:01 09/15/19 07:01 Labs: Abnormal Lab Results - Last 24 Hours (Table) 09/15/19 09/15/19 Range/Units 07:01 07:01 Hgb 10.9 L (11.4-16.0) gm/dL MCHC 29.7 L (31.0-37.0) g/dL RDW 15.7 H (11.5-15.5) % Carbon Dioxide 31 H (22-30) mmol/L Glucose 72 L (74-99) mg/dL Calcium 8.1 L (8.4-10.2) mg/dL Assessment and Plan Assessment: 1. Bilateral internal carotid artery stenosis, left greater than right. 2. Visual changes and disturbances of the right eye 3. MRI showing multiple 1 cm areas of abnormal signal involving different vascular distributions compatible with acute ischemia, multiplicity of vascular clots 4. New onset proximal atrial fibrillation 6. Gait and balance instability 7. Hypertension 8. Chronic dizziness/vertigo Plan: Continue with dual antiplatelet therapy. Appreciate neurology recommendations. Cardiology will be starting patient on oral anticoagulation for atrial fibrillation. Recommend smoking cessation. Continue with nicotine patch. Recommend outpatient follow-up with vascular surgery to further discuss recommendations regarding carotid stenting or endartectomy. The above dictated assessment and findings were discussed with Dr. Méndez. The impression and plan of care have been directed as dictated.
[2019-09-15] MEDS ORDERED: amLODIPine 5 MG TAB PO STA (13:13)
--- NOTE | 2019-09-15 15:23 | P.PN ---
Subjective Progress Note Date: 09/15/19 This is a pleasant 74-year-old female with history of hypertension, prior episodes of dizziness, who initially presented to the hospital with visual disturbance. She was having some issues seeing in her peripheral visual hensley. Mostly in the right eye. She was initially at [facility] where she left AGAINST MEDICAL ADVICE. Cardiology consultation was initially requested because of mild abnormality in troponin. She was seen in consultation yesterday by Dr. Snyder. Her EKG did not reveal any ischemic changes and she did not have any symptoms of chest discomfort or palpitations. Patient had a bilateral carotid duplex study performed which showed a 70-90% stenosis involvin g the left internal carotid artery and a 50-60% stenosis involving the right internal carotid artery. Initially the patient was scheduled today to undergo transesophageal echocardiographic study because of the MRI which was completed yesterday and showed multiple 1 cm or less areas of abnormal signal on diffusion involving different vascular distributions, compatible with acute ischemia, given the multiplicity of vascular distribution, embolic phenomenon considered. 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 For this reason the PATI was canceled and it was e xplained to the patient that she will need to be started on oral anticoagulation. I spoke with neurology who consented the patient to be started on Eliquis today. I also spoke with the vascular surgeon, who initiated dual antiplatelet therapy. The recommendation from neurology was that the patient be initiated on oral anticoagulation, she also had a recommendation that surgery for the carotids be deferred for 60-90 days. This was also communicated to the surgeons. Echocardiogram with Doppler study was performed and is yet pending. Blood pressure 194/60 with a heart rate 70s to 80s, 96% on room air. White blood cell count 6.8, hemoglobin 10.9, platelet count 234, sodium 141, potassium 3.8, BUN 12, creatinine 0.5. Objective - Vital Signs Vital signs: Vital Signs Temp 98.4 F 09/15/19 08:00 Pulse 82 09/15/19 12:00 Resp 18 09/15/19 12:00 BP 195/61 09/15/19 12:00 Pulse Ox 96 09/15/19 12:00 Intake & Output 09/14/19 09/15/19 09/15/19 18:59 06:59 18:59 Intake Total 240 0 120 Balance 240 0 120 Weight 59.3 kg Intake: Oral 240 0 120 Other: # Voids 1 3 # Bowel Movements 1 - Exam PHYSICAL EXAMINATION: GENERAL: 74-year-old female in no acute distress at the time of my examination HEENT: Head is atraumatic, normocephalic. Pupils equal, round. Sclera anicteric. Conjunctiva are clear. Mucous membranes of the mouth are moist. Neck is supple. There is no elevated jugular venous pressure. Bilateral carotid bruit is heard. HEART EXAMINATION: Heart S1, S2 systolic murmur heard . No murmur or gallop heard. CHEST EXAMINATION: Lungs are clear to auscultation and precussion. No chest wall tenderness is noted on palpation or with deep breathing. ABDOMEN: Soft, nontender. Bowel sounds are heard. No organomegaly noted. EXTREMITIES: 2+ peripheral pulses with no evidence of peripheral edema and no calf tenderness noted. NEUROLOGIC [patient is awake, alert and oriented right eye peripheral visual di sturbance. . - Labs CBC & Chem 7: 09/15/19 07:01 09/15/19 07:01 Labs: Abnormal Lab Results - Last 24 Hours (Table) 09/15/19 09/15/19 Range/Units 07:01 07:01 Hgb 10.9 L (11.4-16.0) gm/dL MCHC 29.7 L (31.0-37.0) g/dL RDW 15.7 H (11.5-15.5) % Carbon Dioxide 31 H (22-30) mmol/L Glucose 72 L (74-99) mg/dL Calcium 8.1 L (8.4-10.2) mg/dL Assessment and Plan Plan: Assessment and plan #1 CVA, evidence on MRI of potential cardioembolic infarcts. Patient was also noted on the monitor to have episodes of atrial fibrillation, paroxysmal. #2 moderate to severe carotid artery stenosis #3 hypertension #4 hyperlipidemia #5 COPD #6 nicotine dependence Plan Patient will be initiated today on Eliquis 5 mg one tablet by mouth twice a day, this was approved and discussed with neurology. Neurology also expressed that any vascular surgical interventions wait for 60-90 days. Patient is currently on dual antiplatelet therapy, we have discussed with Buck from a vascular surgery regarding continuing Plavix only. Await their recommendations. Patient will have a follow-up appointment post discharge. DNP note has been reviewed, I agree with a documented findings and plan of care. Patient was seen and examined.
--- NOTE | 2019-09-15 16:18 | P.PN ---
Subjective Progress Note Date: 09/15/19 This is a 74-year-old female admitted with possible acute CVA, bilateral carotid stenosis, elevated troponins and multiple other medical issues. Brain MRI reported multiple 1 cm or less areas of abnormal signal on diffusion involving different vascular distributions compatible with acute ischemia, possible embolic phenomenon. Evaluated by vascular surgery, recommendations noted and appreciated. Patient reports she has seen an manager financial reporting in the past regarding floaters in both eyes and dizziness that were attributed to migraine headaches, yet she denies migraine headaches. Continues to have some right eye blurriness this morning-but states improved, denies motor strength loss. Reports fluctuating dizziness with exertion and at rest. Denies chest pain, palpitations or shortness of breath. Systolic pressures ranging from 120s to 170s. Maintaining O2 sats in the 90s on room air. Afebrile, normal WBC. Evaluated by cardiology, serial troponins ordered as initial troponin elevated. 09/15/2019 evaluated by neurology with recommendations noted and appreciated. MRI completed yesterday, suggestive of possible embolic phenomenon, therefore scheduled for PATI. PATI canceled as patient exhibited paroximal atrial fibrillation during the night. Anticoagulation of aspirin and Eliquis initiated as recommended per neurology/cardiology/vascular surgery. Evaluated by speech therapy diagnosing mild to moderate expressive aphasia. Objective - Vital Signs Vital signs: Vital Signs Temp 98 F 09/15/19 04:00 Pulse 94 09/15/19 04:00 Resp 19 09/15/19 04:00 BP 171/74 09/15/19 04:00 Pulse Ox 96 09/15/19 07:24 Intake & Output 09/14/19 09/15/19 09/15/19 18:59 06:59 18:59 Intake Total 240 0 0 Balance 240 0 0 Weight 59.3 kg Intake: Oral 240 0 0 Other: # Voids 1 3 # Bowel Movements 1 - Exam PHYSICAL EXAM: VITAL SIGNS: As above GENERAL: Sitting up in bed, no acute distress HEENT: No facial asymmetry, Conjunctivae normal. eyes normal. NECK: Supple, No JVD. No thyroid enlargement. No LNs. Trachea midline, Left greater than right Bilateral bruit- CARDIOVASCULAR: S1, S2 regular. Systolic murmur. RESPIRATION: Breath sounds diminished in the bases. No rhonchi or crackles. No bronchial breathing. ABDOMEN: Soft, nontender . No guarding. no masses palpable.Bowel sounds heard. LEGS: No edema. no swelling PSYCHIATRY: Alert and oriented X3, mood and affect normal. NERVOUS SYSTEM: Cranial N 2-12 grossly normal. Moves all 4 limbs. Speech fluent, appropriate. No focal deficits. Strength and sensation grossly intact. Skin: Warm and dry, no rash - Labs CBC & Chem 7: 09/15/19 07:01 09/15/19 07:01 Labs: Abnormal Lab Results - Last 24 Hours (Table) 09/15/19 09/15/19 Range/Units 07:01 07:01 Hgb 10.9 L (11.4-16.0) gm/dL MCHC 29.7 L (31.0-37.0) g/dL RDW 15.7 H (11.5-15.5) % Carbon Dioxide 31 H (22-30) mmol/L Glucose 72 L (74-99) mg/dL Calcium 8.1 L (8.4-10.2) mg/dL Assessment and Plan Assessment: Right homonymous hemianopsia, acute CVA, suspected cardioembolic infarcts Paroxysmal atrial fibrillation, new onset Bilateral internal carotid artery stenosis, left greater than right [id number] Aphasia with mild to moderate cognitive impairment as per speech therapy evaluation Elevated troponins, possible acute NSTEMI Hypertension Chronic dizziness, vertigo Ongoing nicotine dependence Plan: Continue on current medication regime ,monitoring and symptomatic treatment. Anticoagulation as per neurology/vascular surgery/cardiology. O utpatient stress test and outpatient carotid enterectomy recommended as per neurology. Outpatient speech therapy 3-5 times weekly . Outpatient sleep study. Strongly recommending subacute rehab at discharge, patient declined. Discharge planning in progress for tomorrow. The impression and plan of care has been dictated as directed. : I performed a history and examination of this patient, discussed the same with the dictator. I agree with the dictator's note ,documented as a scribe. Any additional findings or plans will be noted.
[2019-09-15] MEDS: APIXABAN 5 MG TAB PO SCH (20:08)
[2019-09-16] MEDS: SODIUM CHLORIDE 0.9% 1,000 ML IV SCH ×2 (03:43→14:49)
[2019-09-16] MEDS: PANTOPRAZOLE 40 MG TABLET PO SCH (04:42)
[2019-09-16 06:50] LABS: Basophils % (A) 1 %; Eosinophils # (A) 0.1 k/uL (0-0.7); Eosinophils % (A) 2 %; HCT 37.6 % (34.0-46.0); HGB 11.2 gm/dL (11.4-16.0); Hypochromasia Moderate; Lymphocytes # (A) 1.9 k/uL (1.0-4.8); Lymphocytes % (A) 25 %; MCHC 29.9 g/dL (31.0-37.0); MCV 90.5 fL (80.0-100.0); Mean Platelet Volume 7.8; Monocytes # (A) 0.4 k/uL (0-1.0); Monocytes % (A) 5 %; Neutrophils # (A) 4.8 k/uL (1.3-7.7); Neutrophils % (A) 66 %; Platelet Count 264 k/uL (150-450); RBC 4.16 m/uL (3.80-5.40); RDW 15.5 % (11.5-15.5); WBC 7.4 k/uL (3.8-10.6)
[2019-09-16 07:09] LABS: African American GFR (CKD) >90 (>60 ml/min/1.73 sqM); Anion Gap 5 mmol/L; Blood Urea Nitrogen 11 mg/dL (7-17); Calcium 8.5 mg/dL (8.4-10.2); Carbon Dioxide 29 mmol/L (22-30); Chloride 105 mmol/L (98-107); Glucose 125 mg/dL (74-99); Non-African American GFR(CKD) >90 (>60 ml/min/1.73 sqM); Potassium 3.8 mmol/L (3.5-5.1); Sodium 139 mmol/L (137-145)
--- NOTE | 2019-09-16 09:04 | P.PN ---
Subjective Progress Note Date: 09/16/19 Patient is seen and examined at the bedside. She denies any acute changes through the night. States that she still has visual disturbance in the right eye. Denies any increased weakness, dysphasia, shortness of breath or chest pain. States that she still has her dizziness, however states that she's had that prior to her hospitalization. He was started on Eliquis yesterday per cardiology, neurology and vascular surgery agreed to aspirin and Eliquis. Plavix was discontinued. Objective - Vital Signs Vital signs: Vital Signs Temp 98 F 09/16/19 03:40 Pulse 82 09/16/19 03:40 Resp 18 09/16/19 03:40 BP 132/65 09/16/19 03:40 Pulse Ox 96 09/16/19 03:40 Intake & Output 09/15/19 09/16/19 09/16/19 18:59 06:59 18:59 Intake Total 720 240 Balance 720 240 Weight 58.9 kg Intake: Oral 720 240 Other: # Voids 1 2 # Bowel Movements 1 - Exam General appearance: The patient is alert, oriented, in no acute distress. HET: Head is normocephalic and atraumatic. Pupils are equal and reactive. Oropharynx is clear without lesions. Neck: Supple without lymphadenopathy. Trachea midline. Audible bruit bilaterally, greater left than right. Heart: S1 S2. Your rate and rhythm. No audible murmur. Lungs: Auscultation bilaterally, with mild expiratory wheeze lower bases. Abdomen: Soft, nontender, nondistended with bowel sounds. Extremities: Normal skin color and turgor. No cyanosis, rash, ulceration, clubbing, or edema. Radial and pedal pulses are 2/4 bilaterally. Neurological: No focal deficits. Alert and oriented 3. Patient answers questions and follows commands appropriately. Strength and sensation are grossly intact. Speech is fluent, no facial asymmetry. Bilateral upper and lower extremity strength 5 out of 5. - Labs CBC & Chem 7: 09/16/19 05:59 09/16/19 05:59 Labs: Abnormal Lab Results - Last 24 Hours (Table) 09/16/19 09/16/19 Range/Units 05:59 05:59 Hgb 11.2 L (11.4-16.0) gm/dL MCHC 29.9 L (31.0-37.0) g/dL Glucose 125 H (74-99) mg/dL Assessment and Plan Assessment: 1. Bilateral internal carotid artery stenosis, left greater than right. 2. Visual changes and disturbances of the right eye 3. MRI showing multiple 1 cm areas of abnormal signal involving different vasc ular distributions compatible with acute ischemia, multiplicity of vascular clots 4. New onset proximal atrial fibrillation 6. Gait and balance instability 7. Hypertension 8. Chronic dizziness/vertigo Plan: Patient is going to be discharged home today. Patient was instructed to follow- up with Dr. Hassan within 2 weeks. She was encouraged to consider acute care rehab. Discussed importance of smoking cessation. She will continue aspirin daily with Eliqupreet. The above dictated assessment and findings were discussed with Dr. Hassan. The impression and plan of care have been directed as dictated.
[2019-09-16] MEDS: LOSARTAN 50 MG TAB PO SCH (09:34)
[2019-09-16] MEDS: APIXABAN 5 MG TAB PO SCH (09:35)
[2019-09-16] MEDS: NICOTINE 21MG/24HR PATCH TRANSDERM SCH (09:35)
[2019-09-16] MEDS: amLODIPine 5 MG TAB PO SCH (09:35)
[2019-09-16] MEDS: ASPIRIN 81 MG PO SCH (09:35)
[2019-09-16] MEDS: ATORVASTATIN 40 MG TAB PO SCH (09:35)
[2019-09-16 11:15] VITALS: TEMP 98.3
[2019-09-16] MEDS ORDERED: POTASSIUM CHLORIDE ER 20 MEQ TAB.ER PO STA (11:31)
--- NOTE | 2019-09-16 12:20 | P.PN ---
Subjective Progress Note Date: 09/16/19 This is a pleasant 74-year-old female with history of hypertension, prior episodes of dizziness, who initially presented to the hospital with visual disturbance. She was having some issues seeing in her peripheral visual hensley. Mostly in the right eye. She was initially at [facility] where she left AGAINST MEDICAL ADVICE. Cardiology consultation was initially requested because of mild abnormality in troponin. She was seen in consultation yesterday by Dr. Snyder. Her EKG did not reveal any ischemic changes and she did not have any symptoms of chest discomfort or palpitations. Patient had a bilateral carotid duplex study performed which showed a 70-90% stenosis involvin g the left internal carotid artery and a 50-60% stenosis involving the right internal carotid artery. Initially the patient was scheduled today to undergo transesophageal echocardiographic study because of the MRI which was completed yesterday and showed multiple 1 cm or less areas of abnormal signal on diffusion involving different vascular distributions, compatible with acute ischemia, given the multiplicity of vascular distribution, embolic phenomenon considered. Her health information systems technician strips through the night were reviewed on clinical access and showed that the patient had at least 2 separate episodes of atrial fibrillation, paroxysmal. For this reason the PATI was canceled and it was e xplained to the patient that she will need to be started on oral anticoagulation. I spoke with neurology who consented the patient to be started on Eliquis today. I also spoke with the vascular surgeon, who initiated dual antiplatelet therapy. The recommendation from neurology was that the patient be initiated on oral anticoagulation, she also had a recommendation that surgery for the carotids be deferred for 60-90 days. This was also communicated to the surgeons. Echocardiogram with Doppler study was performed and is yet pending. Blood pressure 194/60 with a heart rate 70s to 80s, 96% on room air. White blood cell count 6.8, hemoglobin 10.9, platelet count 234, sodium 141, potassium 3.8, BUN 12, creatinine 0.5. 09/16/2019 Patient was seen and examined this morning, sitting up in the chair at bedside. Complaining of mild headache and mild intermittent dizziness. She was initiated on Eliquis yesterday, after speaking with GI service this morning, the recommendation was to discontinue the Plavix and continue baby aspirin. Blood pressure 132/64, heart rate in the 80s, 96% on room air. White blood cell count 7.4, hemoglobin 11.2, platelet count 264. Sodium 139, potassium 3.8, BUN 11, creatinine 0.5. Objective - Vital Signs Vital signs: Vital Signs Temp 98.3 F 09/16/19 08:00 Pulse 83 09/16/19 08:00 Resp 18 09/16/19 08:00 BP 138/63 09/16/19 08:00 Pulse Ox 97 09/16/19 08:00 Intake & Output 09/15/19 09/16/19 09/16/19 18:59 06:59 18:59 Intake Total 720 240 Balance 720 240 Weight 58.9 kg Intake: Oral 720 240 Other: # Voids 1 1 # Bowel Movements 1 - Exam PHYSICAL EXAMINATION: GENERAL: 74-year-old female in no acute distress at the time of my examination HEENT: Head is atraumatic, normocephalic. Pupils equal, round. Sclera anicteric. Conjunctiva are clear. Mucous membranes of the mouth are moist. Neck is supple. There is no elevated jugular venous pressure. Bilateral carotid bruit is heard. HEART EXAMINATION: Heart S1, S2 systolic murmur heard . No murmur or gallop heard. CHEST EXAMINATION: Lungs are clear to auscultation and precussion. No chest wall tenderness is noted on palpation or with deep breathing. ABDOMEN: Soft, nontender. Bowel sounds are heard. No organomegaly noted. EXTREMITIES: 2+ peripheral pulses with no evidence of peripheral edema and no calf tenderness noted. NEUROLOGIC [patient is awake, alert and oriented right eye peripheral visual disturbance. . - Labs CBC & Chem 7: 09/16/19 05:59 09/16/19 05:59 Labs: Abnormal Lab Results - Last 24 Hours (Table) 09/16/19 09/16/19 Range/Units 05:59 05:59 Hgb 11.2 L (11.4-16.0) gm/dL MCHC 29.9 L (31.0-37.0) g/dL Glucose 125 H (74-99) mg/dL Assessment and Plan Plan: Assessment and plan #1 CVA, evidence on MRI of potential cardioembolic infarcts. Patient was also noted on the monitor to have episodes of atrial fibrillation, paroxysmal. #2 moderate to severe carotid artery stenosis #3 hypertension #4 hyperlipidemia #5 COPD #6 nicotine dependence Plan From cardiology's perspective, patient may be discharged once cleared by primary, neurology, and vascular. We'll make her a follow-up appointment in the office post discharge. DNP note has been reviewed, I agree with a documented findings and plan of care. Patient was seen and examined.
--- NOTE | 2019-09-16 14:29 | P.DS ---
Providers Date of admission: 09/13/19 14:44 Expected date of discharge: 09/16/19 Attending physician: Medhat Sykes Consults: 09/13/19 14:47 Consult Physician Urgent Consulting Provider: Kemi Gamboa Consult Reason/Comments: eval for tia Do you want consulting provider notified?: Yes Consult Physician Urgent Consulting Provider: Marshal Dixon Consult Reason/Comments: elevated trop Do you want consulting provider notified?: Yes 09/13/19 15:47 Consult Physician Urgent Consulting Provider: Perez Méndez Consult Reason/Comments: carotid stenosis Do you want consulting provider notified?: Yes Primary care physician: Medhat [facility]kes [facility] Course: Right homonymous hemianopsia, acute CVA, suspected cardioembolic infarcts Paroxysmal atrial fibrillation, new onset Bilateral internal carotid artery stenosis, left greater than right [id number] Aphasia with mild to moderate cognitive impairment as per speech therapy evaluation Elevated troponins, possible acute NSTEMI Hypertension Chronic dizziness, vertigo Ongoing nicotine dependence Hospital course:This is a 74-year-old female admitted with possible acute CVA, bilateral carotid stenosis, elevated troponins and multiple other medical issues. Brain MRI reported multiple 1 cm or less areas of abnormal signal on diffusion involving different vascular distributions compatible with acute ischemia, possible embolic phenomenon. Evaluated by vascular surgery, recommendations noted and appreciated. Patient reports she has seen an rocket propellant plant supervisor in the past regarding floaters in both eyes and dizziness that were attributed to migraine headaches, yet she denies migraine headaches. Continues to have some right eye blurriness this morning-but states improved, denies motor strength loss. Reports fluctuating dizziness with exertion and at rest. Denies chest pain, palpitations or shortness of breath. Systolic pressures ranging from 120s to 170s. Maintaining O2 sats in the 90s on room air. Afebrile, normal WBC. Evaluated by cardiology, serial troponins ordered as initial troponin elevated. 09/15/2019 evaluated by neurology with recommendations noted and appreciated. MRI completed yesterday, suggestive of possible embolic phenomenon, therefore scheduled for PATI. PATI canceled as patient exhibited paroximal atrial fibrillation during the night. Anticoagulation of aspirin and Eliquis initiated as recommended per neurology/cardiology/vascular surgery. Evaluated by speech therapy diagnosing mild to moderate expressive aphasia. Significant clinical improvement. Anticoagulated on aspirin and Eliquis as per neurology, vascular and cardiology. Patient will be discharged home today in a stable condition with guarded prognosis, pending final DC recommendations, clearance from neurology, cardiology, vascular surgery. Smoking cessation reinforced. Recommend subacute rehab, patient declined. The impression and plan of care has been dictated as directed. : I performed a history and examination of this patient, discussed the same with the dictator. I agree with the dictator's note ,documented as a scribe. Any additional findings or plans will be noted. Patient Condition at Discharge: Stable Plan - Discharge Summary Discharge Rx Participant: No New Discharge Prescriptions: New Nicotine 21Mg/24Hr Patch [Habitrol] 1 patch TRANSDERM DAILY #30 patch Aspirin 81 mg PO DAILY #30 chew Apixaban [Eliquis] 5 mg PO BID #1 tab Atorvastatin [Lipitor] 40 mg PO HS #30 tab amLODIPine [Norvasc] 5 mg PO DAILY #30 tab Pantoprazole [Protonix] 40 mg PO AC-BRKFST #30 tablet.dr [place]ats Losartan [Cozaar] 50 mg PO DAILY Meclizine [Antivert] 25 mg PO DAILY PRN PRN Reason: Vertigo Discharge Medication List Losartan [Cozaar] 50 mg PO DAILY 09/13/19 [History] Meclizine [Antivert] 25 mg PO DAILY PRN 09/13/19 [History] Apixaban [Eliquis] 5 mg PO BID #1 tab 09/16/19 [Rx] Aspirin 81 mg PO DAILY #30 chew 09/16/19 [Rx] Atorvastatin [Lipitor] 40 mg PO HS #30 tab 09/16/19 [Rx] Nicotine 21Mg/24Hr Patch [Habitrol] 1 patch TRANSDERM DAILY #30 patch 09/16/19 [Rx] Pantoprazole [Protonix] 40 mg PO AC-BRKFST #30 tablet. 09/16/19 [Rx] amLODIPine [Norvasc] 5 mg PO DAILY #30 tab 09/16/19 [Rx] Follow up Appointment(s)/Referral(s): Sirena Harding MD [REFERRING] - 1 Week (Office will call to schedule a follow-up appointment. ) Medhat Sykes DO [Primary Care Provider] - 3 Days (Office closed. Call during business hours to schedule follow-up. ) [facility] - Denae Hassan DO [STAFF PHYSICIAN] - 2 Weeks (Office closed. Call during business hours to schedule follow-up appointment. Related to carotid blockage. ) Ambulatory/Diagnostic Orders: Complete Blood Count w/diff [LAB.AMB] Time Frame: 3 Days, Location: None Selected Activity/Diet/Wound Care/Special Instructions: Eliquis script filled at [facility] with free 30 day coupon Pending final DC recommendations, clearance from both cardiology, neurology. Confirm cardiology follow-up appointment prior to discharge. No smoking Declined subacute rehab
--- NOTE | 2019-09-16 15:02 | P.PN ---
Subjective Progress Note Date: 09/16/19 Principal diagnosis: Cardioembolic stroke with visual field cut severe vasculopathy Subjective: Patient remains clinically stable overnight. Discharge in place. Patient reports no new symptoms but still has the persistent visual field cut involving the entire lower half of her vision in the right eye. Patient can only see above midline. Patient denies having any headache difficulty swallowing or hearing today. Patient understands the degree of atherosclerotic disease in the 4 surgery. The patient also expresses understanding that the surgery is 1 be postponed until she can be physically prepared and ready surgery. Patient understands that she will be discharged home with home health care and daily physical therapy. Patient understands that she is on both a oral anticoagulant and small dose of antiplatelet. Patient expresses that she has determination to refrain from smoking. Objective - Vital Signs Vital signs: Vital Signs Temp 98.3 F 09/16/19 08:00 Pulse 83 09/16/19 08:00 Resp 18 09/16/19 08:00 BP 138/63 09/16/19 08:00 Pulse Ox 97 09/16/19 08:00 Intake & Output 09/15/19 09/16/19 09/16/19 18:59 06:59 18:59 Intake Total 720 240 Balance 720 240 Weight 58.9 kg Intake: Oral 720 240 Other: # Voids 1 1 # Bowel Movements 1 - Exam Patient was examined and chart reviewed. Examination: Mental status: Patient is awake alert and attentive. Her speech is fluent she is able follow commands without difficulty. X line pupils: 2 mm reactive to light. Cranial nerves: Extraocular movements are full. No nystagmus noted on vertical horizontal gaze. Face is symmetric. Palate elevates symmetrically. Tongue is midline without fasciculations deviation. Motor examination: Moves all 4 extremities equally. No pronator drift present. Strength is 5 over 5 throughout. No tremors noted. Coordination testing:: Deferred Sensory examination: Intact to light touch throughout. Deep tendon reflexes: +2 over biceps brachial radialis. Patellar reflexes equal +2. Ankle jerks are +1 bilaterally. Plantar response flexor bilaterally. No ankle clonus elicited. Gait examination: Patient is able to ambulate without assistance gait is slightly wide-based but not ataxic. We attempted a patch trial on the affected eye. This did not improve her visual acuity. - Labs CBC & Chem 7: 09/16/19 05:59 09/16/19 05:59 Labs: Abnormal Lab Results - Last 24 Hours (Table) 09/16/19 09/16/19 Range/Units 05:59 05:59 Hgb 11.2 L (11.4-16.0) gm/dL MCHC 29.9 L (31.0-37.0) g/dL Glucose 125 H (74-99) mg/dL Assessment and Plan Assessment: This is a 74-year-old female with significant atherosclerotic disease and evidence of potential cardioembolic infarcts. She is presenting with stepwise progression of symptoms suspicious for cardioembolic stroke. The symptoms i nvolve intermittent dizzy spells, nausea as well as field cuts in both eyes. The CT angiogram of her extra- cranial system shows significant atherosclerotic disease as well as the intra-cranial system on the left. In particular there is significant stenosis involving the left internal carotid artery. Today's exam discloses the field cut that is involved with the right eye. The patient cannot see in the lower quadrants. Otherwise her strength is intact cranial nerves are intact. Her gait is steady without ataxia. Recommendations 1. Patient may be discharged home with home therapy and physical therapy. Plan is for patient to undergo surgery within the next several weeks as she gets her stamina and strength up. 2. Provide GI prophylaxis for ulcer prevention with Pepcid 40 mg 3. Continue with Statin: Atorvastatin 40 mg per day. 4. Continue with Healthy heart diet. 5. Continue with nicotine patch. 6. Continue with physical therapy at home with ongoing close supervision with home health care. 8. Would recommend patient to be evaluated by neuro-ophthalmology if at all possible before surgery. This patient may require specialized glasses with prisms. 12. Would recommend this patient be evaluated for sleep disordered breathing before for her surgery scheduled.. Sleep apnea can also be the third leading risk factor for stroke independent of diabetes, hypertension and atrial fibrillation. Sleep disordered breathing is also the primary cause for drug resistant hypertension. Patient is cleared by neurology for discharge home with the above recomm endations. Thank you for this consultation. Neurology will follow closely on a daily basis and communicate with staff and family for recommendations. Pam Carter M.D. Board Certified in Neurology and Sleep Medicine
[2019-09-16 15:06] VITALS: BP 103/52; PULSE 75
--- NOTE | 2019-09-18 16:00 | ECHOF ---
Referral Reason:Thrombus MEASUREMENTS -------- HEIGHT: 0.0 cm WEIGHT: 0.0 kg BP: RVIDd: 3.0 cm (< 3.3) IVSd: 1.5 cm (0.6 - 1.1) LVIDd: 3.8 cm (3.9 - 5.3) LVPWd: 1.6 cm (0.6 - 1.1) IVSs: 2.0 cm LVIDs: 2.5 cm LVPWs: 1.8 cm Ao Diam: 2.9 cm (2.0 - 3.7) AV Cusp: 1.6 cm (1.5 - 2.6) MV EXCURSION: 14.230 mm (> 18.000) MV EF SLOPE: 46 mm/s (70 - 150) EPSS: 0.3 cm MV E Deondre: 0.98 m/s MV DecT: 230 ms MV A Deondre: 1.42 m/s MV E/A Ratio: 0.69 AR PHT: 335 ms RAP: 5.00 mmHg RVSP: 48.15 mmHg FINDINGS -------- This was a technically adequate study. The left ventricular size is normal. There is moderate concentric left ventricular hypertrophy. O verall left ventricular systolic function is normal with, an EF between 55 - 60 %. Left ventricular fillimg pressure cannot be estimated due to severe mitral annular calcification. The right ventricle is normal in size. LA is moderately dilated 34-39 ml/m2 The right atrial size is normal. Interatrial and interventricular septum intact. There is [id number] aortic regurgitation. There is mild aortic stenosis present. Severe mitral annular calcification present. Moderate mitral regurgitation is present. Moderate tricuspid regurgitation present. There is moderate pulmonary hypertension. The right cristin tricular systolic pressure, as measured by Doppler, is 48.15mmHg. There is no pulmonic regurgitation present. The aortic root size is normal. The inferior vena cava is mildly dilated. There is no pericardial effusion. CONCLUSIONS -------- 1. This was a technically adequate study. 2. The left ventricular size is normal. 3. There is moderate concentric left ventricular hypertrophy. 4. Overall left ventricular systolic function is normal with, an EF between 55 - 60 %. 5. Left ventricular fillimg pressure cannot be estimated due to severe mitral annular calcification. 6. The right ventricle is normal in size. 7. LA is moderately dilated 34-39 ml/m2 8. The right atrial size is normal. 9. Interatrial and interventricular septum intact. 10. There is [id number] aortic regurgitation. 11. There is mild aortic stenosis present. 12. Severe mitral annular calcification present. 13. Moderate mitral regurgitation is present. 14. Moderate tricuspid regurgitation present. 15. There is moderate pulmonary hypertension. 16. The right ventricular systolic pressure, as measured by Doppler, is 48.15mmHg. 17. There is no pulmonic regurgitation present. 18. The aortic root size is normal. 19. The inferior vena cava is mildly dilated. 20. There is no pericardial effusion. CUSTOMER EXPERIENCE RETAIL CLERK: Sigrid Story RDCS
== END 2019-09-16 15:40 | disposition home or self-care (01) | DRG 64 ==
LOC: EC 12:30 → 3SCARD 14:44
PROVIDERS: ADMIT Family Medicine; ATTEND Family Medicine
DX: I63.40 Cerebral infarction due to embolism of unspecified cerebral artery (principal); I21.4 Non-ST elevation (NSTEMI) myocardial infarction; I77.79 Dissection of other specified artery; I63.441 Cerebral infarction due to embolism of right cerebellar artery; R47.01 Aphasia; E78.5 Hyperlipidemia, unspecified; Z71.6 Tobacco abuse counseling; F17.210 Nicotine dependence, cigarettes, uncomplicated; R40.2362 Coma scale, best motor response, obeys commands, at arrival to emergency department; R40.2142 Coma scale, eyes open, spontaneous, at arrival to emergency department; R40.2252 Coma scale, best verbal response, oriented, at arrival to emergency department; H53.461 Homonymous bilateral field defects, right side; H54.61 Unqualified visual loss, right eye, normal vision left eye; I10 Essential (primary) hypertension; I48.0 Paroxysmal atrial fibrillation; I65.23 Occlusion and stenosis of bilateral carotid arteries; J44.9 Chronic obstructive pulmonary disease, unspecified; Z91.81 History of falling; Z11.59 Encounter for screening for other viral diseases; R26.9 Unspecified abnormalities of gait and mobility; R73.9 Hyperglycemia, unspecified; Z53.09 Procedure and treatment not carried out because of other contraindication; Z90.710 Acquired absence of both cervix and uterus; Z90.49 Acquired absence of other specified parts of digestive tract; Z79.01 Long term (current) use of anticoagulants; Z79.82 Long term (current) use of aspirin; Z79.899 Other long term (current) drug therapy; Z82.49 Family history of ischemic heart disease and other diseases of the circulatory system; Z80.9 Family history of malignant neoplasm, unspecified; R42 Dizziness and giddiness
CPT/HCPCS: 36415; 70496; 70498; 70553; 71046; 80048; 80053; 80061; 81003; 83735; 84484; 85025; 85610; 85652; 85730; 93005; 93306; 93880; 94760; 96360; 99285

== ENCOUNTER 2019-09-23 14:34 | Inpatient (IN) | payer MEDICARE ==
--- NOTE | 2019-09-23 15:48 | ED ---
Weakness HPI - General Chief complaint: Weakness Stated complaint: Weakness Time Seen by Provider: 09/23/19 15:20 Source: patient, family, RN notes reviewed Mode of arrival: wheelchair Limitations: no limitations - History of Present Illness Initial comments: This is a 74-year-old female who was sent in from her doctor due to low hemoglobin and suspected GI bleed. Patient has had 3 days of lower abdominal discomfort also had appear black tarry stools yesterday. She does feel weak and tired she does voice that she does not want be readmitted as he discuss the hospital a week ago. He has had some lightheadedness also. No chest pain no palpitations. No other modifying factors at this time. No prior history of GI bleeding she does have a history again of diverticulitis. MD Complaint: generalized weakness - Related Data Home Medications Medication Instructions Recorded Confirmed predniSONE See Taper PO DAILY 09/23/19 09/23/19 Previous Rx's Medication Instructions Recorded Apixaban [Eliquis] 5 mg PO BID #1 tab 09/16/19 Aspirin 81 mg PO DAILY #30 chew 09/16/19 Atorvastatin [Lipitor] 40 mg PO HS #30 tab 09/16/19 Pantoprazole [Protonix] 40 mg PO AC-BRKFST #30 tablet. 09/16/19 amLODIPine [Norvasc] 5 mg PO DAILY #30 tab 09/16/19 Allergies Allergy/AdvReac Type Severity Reaction Status Date / Time codeine Allergy Unknown Verified 09/23/19 16:14 Review of Systems ROS Statement: Those systems with pertinent positive or pertinent negative responses have been documented in the HPI. ROS Other: All systems not noted in ROS Statement are negative. Past Medical History Past Medical History: COPD, Hypertension Additional Past Medical History / Comment(s): dizziness History of Any Multi-Drug Resistant Organisms: None Reported Past Surgical History: Adenoidectomy, Hysterectomy, Tonsillectomy Additional Past Surgical History / Comment(s): bowel resection Past Psychological History: Anxiety Smoking Status: Current every day smoker Past Alcohol Use History: None Reported Past Drug Use History: None Reported - Past Family History Mother Family Medical History: Cancer, Congestive Heart Failure (CHF) Father Family Medical History: Unable to Obtain General Exam - General Exam Comments Initial Comments: This is a well-developed sec appearing female who is awake alert oriented 3 Limitations: no limitations General appearance: alert, in no apparent distress Head exam: Present: atraumatic, normocephalic, normal inspection Eye exam: Present: normal appearance, PERRL, EOMI. Absent: scleral icterus, conjunctival injection, periorbital swelling ENT exam: Present: normal exam, mucous membranes moist Neck exam: Present: normal inspection. Absent: tenderness, meningismus, lymphadenopathy Respiratory exam: Present: normal lung sounds bilaterally. Absent: respiratory distress, wheezes, rales, rhonchi, stridor Cardiovascular Exam: Present: regular rate, normal rhythm, normal heart sounds. Absent: systolic murmur, diastolic murmur, rubs, gallop, clicks GI/Abdominal exam: Present: soft, normal bowel sounds. Absent: distended, tenderness, guarding, rebound, rigid Rectal exam: Present: normal inspection, heme (+) stool, black stool Extremities exam: Present: normal inspection, full ROM, normal capillary refill. Absent: tenderness, pedal edema, joint swelling, calf tenderness Back exam: Present: normal inspection Neurological exam: Present: alert, oriented X3, CN II-XII intact Psychiatric exam: Present: normal affect, normal mood Skin exam: Present: warm, dry, intact, normal color. Absent: rash Course Vital Signs 09/23/19 09/23/19 09/23/19 14:41 15:05 15:54 Temperature 98.2 F Pulse Rate 92 90 Respiratory 18 22 18 Rate Blood Pressure 103/47 110/53 O2 Sat by Pulse 100 96 Oximetry EKG Findings - EKG Results: EKG: interpreted by LAWRENCE VAZQUEZL, sinus rhythm, normal axis, normal QRS, normal ST/T, no acute changes (Normal sinus rhythm 88 [place] interval 114 QRS 74 QT/QTC 400/484 this is a normal-appearing EKG) Medical Decision Making - Medical Decision Making I did a long discussion with the patient regarding the findings as well as family member was present. Patient be admitted with GI consultation. She also received blood transfusion. Case is discussed with Dr. Sykes. - Lab Data Result diagrams: 09/23/19 15:15 09/23/19 15:15 Lab Results 09/23/19 09/23/19 09/23/19 Range/Units 15:15 15:15 15:15 WBC 16.1 H (3.8-10.6) k/uL RBC 2.40 L (3.80-5.40) m/uL Hgb 6.9 L* (11.4-16.0) gm/dL Hct 21.9 L (34.0-46.0) % MCV 91.3 (80.0-100.0) fL MCH 28.8 (25.0-35.0) pg MCHC 31.6 (31.0-37.0) g/dL RDW 17.8 H (11.5-15.5) % Plt Count 454 H (150-450) k/uL Neutrophils % 88 % Lymphocytes % 9 % Monocytes % 2 % Eosinophils % 0 % Basophils % 0 % Neutrophils # 14.1 H (1.3-7.7) k/uL Lymphocytes # 1.4 (1.0-4.8) k/uL Monocytes # 0.4 (0-1.0) k/uL Eosinophils # 0.1 (0-0.7) k/uL Basophils # 0.1 (0-0.2) k/uL Hypochromasia Moderate Anisocytosis Slight PT 10.7 (9.0-12.0) sec INR 1.0 (<1.2) APTT 26.9 (22.0-30.0) sec Sodium 135 L (137-145) mmol/L Potassium 4.8 (3.5-5.1) mmol/L Chloride 99 (98-107) mmol/L Carbon Dioxide 28 (22-30) mmol/L Anion Gap 8 mmol/L BUN 33 H (7-17) mg/dL Creatinine 0.90 (0.52-1.04) mg/dL Est GFR (CKD-EPI)AfAm 74 (>60 ml/min/1.73 sqM) Est GFR (CKD-EPI)NonAf 64 (>60 ml/min/1.73 sqM) Glucose 123 H (74-99) mg/dL Plasma Lactic Acid Clay (0.7-2.0) mmol/L Calcium 8.9 (8.4-10.2) mg/dL Magnesium 2.2 (1.6-2.3) mg/dL Total Bilirubin 0.3 (0.2-1.3) mg/dL AST 18 (14-36) U/L ALT 16 (4-34) U/L Alkaline Phosphatase 67 (38-126) U/L Creatine Kinase 36 (30-135) U/L Total Protein 6.0 L (6.3-8.2) g/dL Albumin 3.5 (3.5-5.0) g/dL Stool Occult Blood (Negative) 09/23/19 09/23/19 Range/Units 15:15 16:04 WBC (3.8-10.6) k/uL RBC (3.80-5.40) m/uL Hgb (11.4-16.0) gm/dL Hct (34.0-46.0) % MCV (80.0-100.0) fL MCH (25.0-35.0) pg MCHC (31.0-37.0) g/dL RDW (11.5-15.5) % Plt Count (150-450) k/uL Neutrophils % % Lymphocytes % % Monocytes % % Eosinophils % % Basophils % % Neutrophils # (1.3-7.7) k/uL Lymphocytes # (1.0-4.8) k/uL Monocytes # (0-1.0) k/uL Eosinophils # (0-0.7) k/uL Basophils # (0-0.2) k/uL Hypochromasia Anisocytosis PT (9.0-12.0) sec INR (<1.2) APTT (22.0-30.0) sec Sodium (137-145) mmol/L Potassium (3.5-5.1) mmol/L Chloride (98-107) mmol/L Carbon Dioxide (22-30) mmol/L Anion Gap mmol/L BUN (7-17) mg/dL Creatinine (0.52-1.04) mg/dL Est GFR (CKD-EPI)AfAm (>60 ml/min/1.73 sqM) Est GFR (CKD-EPI)NonAf (>60 ml/min/1.73 sqM) Glucose (74-99) mg/dL Plasma Lactic Acid Clay 1.6 (0.7-2.0) mmol/L Calcium (8.4-10.2) mg/dL Magnesium (1.6-2.3) mg/dL Total Bilirubin (0.2-1.3) mg/dL AST (14-36) U/L ALT (4-34) U/L Alkaline Phosphatase (38-126) U/L Creatine Kinase (30-135) U/L Total Protein (6.3-8.2) g/dL Albumin (3.5-5.0) g/dL Stool Occult Blood Positive H (Negative) - Radiology Data Radiology results: report reviewed (I did review the imaging no acute findings are seen.), image reviewed Critical Care Time Critical Care Time: Yes Total Critical Care Time: 31 Critical Care Time: 31 minutes of critical care time which includes initial presentation with his tory physical labs x-rays reevaluation the patient. Discussion with several family members and the patient regarding the findings. Review of old charting admission orders and documentation of the above. Disposition Clinical Impression: GI bleed, Anemia, Symptomatic anemia Disposition: ADMITTED IP TO THIS [facility] Condition: Fair Referrals: Medhat Sykes DO [Primary Care Provider] - 1-2 days
[2019-09-23 16:05] LABS: Albumin 3.5 g/dL (3.5-5.0); Calcium 8.9 mg/dL (8.4-10.2); Magnesium 2.2 mg/dL (1.6-2.3); Potassium 4.8 mmol/L (3.5-5.1); Total Bilirubin 0.3 mg/dL (0.2-1.3)
[2019-09-23 16:08] LABS: Partial Thromboplastin Time 26.9 sec (22.0-30.0); Prothrombin Time 10.7 sec (9.0-12.0)
[2019-09-23 16:11] LABS: Anisocytosis Slight; Basophils # (A) 0.1 k/uL (0-0.2); Basophils % (A) 0 %; Eosinophils # (A) 0.1 k/uL (0-0.7); Eosinophils % (A) 0 %; HCT 21.9 % (34.0-46.0); Hypochromasia Moderate; Lymphocytes # (A) 1.4 k/uL (1.0-4.8); Lymphocytes % (A) 9 %; MCH 28.8 pg (25.0-35.0); MCHC 31.6 g/dL (31.0-37.0); MCV 91.3 fL (80.0-100.0); Mean Platelet Volume 8.5; Monocytes # (A) 0.4 k/uL (0-1.0); Monocytes % (A) 2 %; Neutrophils # (A) 14.1 k/uL (1.3-7.7); Neutrophils % (A) 88 %; Platelet Count 454 k/uL (150-450); RDW 17.8 % (11.5-15.5); WBC 16.1 k/uL (3.8-10.6)
[2019-09-23 16:13] LABS: HGB 6.9 gm/dL (11.4-16.0)
[2019-09-23] MEDS ORDERED: NALOXONE 0.4 MG/ML 1 ML VIAL IV PRN (16:37)
--- NOTE | 2019-09-23 16:49 | XR ---
EXAMINATION TYPE: XR KUB DATE OF EXAM: 09/23/2019 COMPARISON: NONE HISTORY: Pain TECHNIQUE: 2 views FINDINGS: There is no sign of intestinal obstruction or pneumoperitoneum. Fecal pattern is normal. There are p ossible left renal calculi in the upper pole. There is slight blunting of the costophrenic angles. There is no evidence of a mass. IMPRESSION: Nonacute abdomen. Possible left renal calculi. Mild pleural reaction at the lung bases appears new co mpared to old exam.
--- NOTE | 2019-09-23 16:51 | XR ---
EXAMINATION TYPE: XR chest 2V DATE OF EXAM: 09/23/2019 COMPARISON: 09/13/2019 HISTORY: Pain TECHNIQUE: 2 views FINDINGS: Heart is normal. Lungs are clear of consolidation. There are no hilar masses. Thoracic aort a is atheromatous. Costophrenic angles are clear. Bony thorax is intact. IMPRESSION: No active cardiopulmonary disease. No change.
[2019-09-23 16:55] LABS: Appearance,Urine Cloudy (Clear); Bilirubin,Urine Negative (Negative); Blood,Urine Moderate (Negative); Color,Urine Yellow; Glucose,Urine (UA) Negative (Negative); Hyaline Casts,Urine 29 /lpf (0-2); Ketones,Urine Negative (Negative); Leukocyte Esterase,Urine Trace (Negative); Mucus,Urine Few /hpf; Nitrite,Urine Negative (Negative); PH, Urine 5.5 (5.0-8.0); Protein,Urine Trace (Negative); RBC,Urine 1 /hpf (0-5); Specific Gravity,Urine 1.022 (1.001-1.035); Squamous Epithelial Cell,Urine 2 /hpf (0-4); WBC,Urine 3 /hpf (0-5)
--- NOTE | 2019-09-23 17:17 | ED ---
Medical Decision Making - Medical Decision Making Patient was noted have elevated troponin 0.111 and blood draw. She has no chest pain no shortness of breath no palpitations and had a normal-appearing EKG. Cardiology will be consulted. - Lab Data Result diagrams: 09/23/19 15:15 09/23/19 15:15 Lab Results 09/23/19 09/23/19 09/23/19 Range/Units 15:15 15:15 15:15 WBC 16.1 H (3.8-10.6) k/uL RBC 2.40 L (3.80-5.40) m/uL Hgb 6.9 L* (11.4-16.0) gm/dL Hct 21.9 L (34.0-46.0) % MCV 91.3 (80.0-100.0) fL MCH 28.8 (25.0-35.0) pg MCHC 31.6 (31.0-37.0) g/dL RDW 17.8 H (11.5-15.5) % Plt Count 454 H (150-450) k/uL Neutrophils % 88 % Lymphocytes % 9 % Monocytes % 2 % Eosinophils % 0 % Basophils % 0 % Neutrophils # 14.1 H (1.3-7.7) k/uL Lymphocytes # 1.4 (1.0-4.8) k/uL Monocytes # 0.4 (0-1.0) k/uL Eosinophils # 0.1 (0-0.7) k/uL Basophils # 0.1 (0-0.2) k/uL Hypochromasia Moderate Anisocytosis Slight PT 10.7 (9.0-12.0) sec INR 1.0 (<1.2) APTT 26.9 (22.0-30.0) sec Sodium 135 L (137-145) mmol/L Potassium 4.8 (3.5-5.1) mmol/L Chloride 99 (98-107) mmol/L Carbon Dioxide 28 (22-30) mmol/L Anion Gap 8 mmol/L BUN 33 H (7-17) mg/dL Creatinine 0.90 (0.52-1.04) mg/dL Est GFR (CKD-EPI)AfAm 74 (>60 ml/min/1.73 sqM) Est GFR (CKD-EPI)NonAf 64 (>60 ml/min/1.73 sqM) Glucose 123 H (74-99) mg/dL Plasma Lactic Acid Clay (0.7-2.0) mmol/L Calcium 8.9 (8.4-10.2) mg/dL Magnesium 2.2 (1.6-2.3) mg/dL Total Bilirubin 0.3 (0.2-1.3) mg/dL AST 18 (14-36) U/L ALT 16 (4-34) U/L Alkaline Phosphatase 67 (38-126) U/L Creatine Kinase 36 (30-135) U/L Troponin I (0.000-0.034) ng/mL Total Protein 6.0 L (6.3-8.2) g/dL Albumin 3.5 (3.5-5.0) g/dL Urine Color Urine Appearance (Clear) Urine pH (5.0-8.0) Ur Specific [place] (1.001-1.035) Urine Protein (Negative) Urine Glucose (UA) (Negative) Urine Ketones (Negative) Urine Blood (Negative) Urine Nitrite (Negative) Urine Bilirubin (Negative) Urine Urobilinogen (<2.0) mg/dL Ur Leukocyte Esterase (Negative) Urine RBC (0-5) /hpf Urine WBC (0-5) /hpf Ur Squamous Epith Cells (0-4) /hpf Hyaline Casts (0-2) /lpf Urine Mucus (None) /hpf Stool Occult Blood (Negative) Blood Type Blood Type Recheck Bld Type Recheck Status Antibody Screen Crossmatch Spec Expiration Date 09/23/19 09/23/19 09/23/19 Range/Units 15:15 15:15 15:15 WBC (3.8-10.6) k/uL RBC (3.80-5.40) m/uL Hgb (11.4-16.0) gm/dL Hct (34.0-46.0) % MCV (80.0-100.0) fL MCH (25.0-35.0) pg MCHC (31.0-37.0) g/dL RDW (11.5-15.5) % Plt Count (150-450) k/uL Neutrophils % % Lymphocytes % % Monocytes % % Eosinophils % % Basophils % % Neutrophils # (1.3-7.7) k/uL Lymphocytes # (1.0-4.8) k/uL Monocytes # (0-1.0) k/uL Eosinophils # (0-0.7) k/uL Basophils # (0-0.2) k/uL Hypochromasia Anisocytosis PT (9.0-12.0) sec INR (<1.2) APTT (22.0-30.0) sec Sodium (137-145) mmol/L Potassium (3.5-5.1) mmol/L Chloride (98-107) mmol/L Carbon Dioxide (22-30) mmol/L Anion Gap mmol/L BUN (7-17) mg/dL Creatinine (0.52-1.04) mg/dL Est GFR (CKD-EPI)AfAm (>60 ml/min/1.73 sqM) Est GFR (CKD-EPI)NonAf (>60 ml/min/1.73 sqM) Glucose (74-99) mg/dL Plasma Lactic Acid Clay 1.6 (0.7-2.0) mmol/L Calcium (8.4-10.2) mg/dL Magnesium (1.6-2.3) mg/dL Total Bilirubin (0.2-1.3) mg/dL AST (14-36) U/L ALT (4-34) U/L Alkaline Phosphatase (38-126) U/L Creatine Kinase (30-135) U/L Troponin I 0.111 H* (0.000-0.034) ng/mL Total Protein (6.3-8.2) g/dL Albumin (3.5-5.0) g/dL Urine Color Urine Appearance (Clear) Urine pH (5.0-8.0) Ur Specific [place] (1.001-1.035) Urine Protein (Negative) Urine Glucose (UA) (Negative) Urine Ketones (Negative) Urine Blood (Negative) Urine Nitrite (Negative) Urine Bilirubin (Negative) Urine Urobilinogen (<2.0) mg/dL Ur Leukocyte Esterase (Negative) Urine RBC (0-5) /hpf Urine WBC (0-5) /hpf Ur Squamous Epith Cells (0-4) /hpf Hyaline Casts (0-2) /lpf Urine Mucus (None) /hpf Stool Occult Blood (Negative) Blood Type O Positive Blood Type Recheck O Pos Bld Type Recheck Status No Antibody Screen NEGATIVE Crossmatch See Detail Spec Expiration Date 09/26/2019 - 231409/23/19 09/23/19 Range/Units 16:04 16:44 WBC (3.8-10.6) k/uL RBC (3.80-5.40) m/uL Hgb (11.4-16.0) gm/dL Hct (34.0-46.0) % MCV (80.0-100.0) fL MCH (25.0-35.0) pg MCHC (31.0-37.0) g/dL RDW (11.5-15.5) % Plt Count (150-450) k/uL Neutrophils % % Lymphocytes % % Monocytes % % Eosinophils % % Basophils % % Neutrophils # (1.3-7.7) k/uL Lymphocytes # (1.0-4.8) k/uL Monocytes # (0-1.0) k/uL Eosinophils # (0-0.7) k/uL Basophils # (0-0.2) k/uL Hypochromasia Anisocytosis PT (9.0-12.0) sec INR (<1.2) APTT (22.0-30.0) sec Sodium (137-145) mmol/L Potassium (3.5-5.1) mmol/L Chloride (98-107) mmol/L Carbon Dioxide (22-30) mmol/L Anion Gap mmol/L BUN (7-17) mg/dL Creatinine (0.52-1.04) mg/dL Est GFR (CKD-EPI)AfAm (>60 ml/min/1.73 sqM) Est GFR (CKD-EPI)NonAf (>60 ml/min/1.73 sqM) Glucose (74-99) mg/dL Plasma Lactic Acid Clay (0.7-2.0) mmol/L Calcium (8.4-10.2) mg/dL Magnesium (1.6-2.3) mg/dL Total Bilirubin (0.2-1.3) mg/dL AST (14-36) U/L ALT (4-34) U/L Alkaline Phosphatase (38-126) U/L Creatine Kinase (30-135) U/L Troponin I (0.000-0.034) ng/mL Total Protein (6.3-8.2) g/dL Albumin (3.5-5.0) g/dL Urine Color Yellow Urine Appearance Cloudy H (Clear) Urine pH 5.5 (5.0-8.0) Ur Specific [place] 1.022 (1.001-1.035) Urine Protein Trace H (Negative) Urine Glucose (UA) Negative (Negative) Urine Ketones Negative (Negative) Urine Blood Moderate H (Negative) Urine Nitrite Negative (Negative) Urine Bilirubin Negative (Negative) Urine Urobilinogen 3.0 (<2.0) mg/dL Ur Leukocyte Esterase Trace H (Negative) Urine RBC 1 (0-5) /hpf Urine WBC 3 (0-5) /hpf Ur Squamous Epith Cells 2 (0-4) /hpf Hyaline Casts 29 H (0-2) /lpf Urine Mucus Few H (None) /hpf Stool Occult Blood Positive H (Negative) Blood Type Blood Type Recheck Bld Type Recheck Status Antibody Screen Crossmatch Spec Expiration Date Disposition Clinical Impression: GI bleed, Anemia, Symptomatic anemia, Elevated troponin Disposition: ADMITTED IP TO THIS [facility] Condition: Fair Referrals: Medhat Sykes DO [Primary Care Provider] - 1-2 days
[2019-09-23] MEDS ORDERED: ALPRAZolam 0.25 MG TAB PO PRN (18:40)
[2019-09-23] MEDS: PANTOPRAZOLE 40 MG/10 ML VIAL IV SCH (20:12)
[2019-09-23] MEDS: SODIUM CHLORIDE 0.9% 1,000 ML IV SCH (20:13)
[2019-09-23] MEDS ORDERED: ALPRAZolam 0.25 MG TAB PO STA (20:29)
[2019-09-24 02:56] LABS: Anisocytosis Slight; Basophils # (A) 0.1 k/uL (0-0.2); Basophils % (A) 1 %; Eosinophils # (A) 0.1 k/uL (0-0.7); Eosinophils % (A) 0 %; HCT 23.5 % (34.0-46.0); HGB 7.3 gm/dL (11.4-16.0); Hypochromasia Slight; Lymphocytes # (A) 1.9 k/uL (1.0-4.8); Lymphocytes % (A) 16 %; MCH 27.8 pg (25.0-35.0); MCHC 30.9 g/dL (31.0-37.0); MCV 89.9 fL (80.0-100.0); Mean Platelet Volume 7.7; Monocytes # (A) 0.5 k/uL (0-1.0); Monocytes % (A) 4 %; Neutrophils # (A) 9.4 k/uL (1.3-7.7); Neutrophils % (A) 77 %; Platelet Count 390 k/uL (150-450); Poikilocytosis Slight; RBC 2.61 m/uL (3.80-5.40); RDW 17.5 % (11.5-15.5); WBC 12.1 k/uL (3.8-10.6)
[2019-09-24] MEDS: SODIUM CHLORIDE 0.9% 1,000 ML IV SCH ×2 (06:29→20:37)
[2019-09-24] MEDS: PANTOPRAZOLE 40 MG/10 ML VIAL IV SCH ×2 (07:42→21:13)
[2019-09-24] MEDS: amLODIPine 5 MG TAB PO SCH (07:43)
[2019-09-24] MEDS ORDERED: ACETAMINOPHEN IV (For NPO) 1,000 MG in EMPTY BAG 1 BAG IVPB PRN (09:47)
--- NOTE | 2019-09-24 10:27 | P.HPIM ---
History of Present Illness H&P Date: 09/24/19 Chief Complaint: Anemia, shortness of breath This is a 74-year-old female with recent acute CVA, bilateral carotid stenosis, elevated troponins, right homonymous hemianopsia, paroxysmal atrial fibrillation, discharged last week from the hospital, on both aspirin and Eliquis, presented to the ER with symptomatic anemia. Patient reports history of diverticulitis status post bowel surgery at [facility] 6 years ago. Last colonoscopy was approximately 6 years ago also at [facility]. Patient is still awaiting outpatient carotid surgery with vascular surgery, arranged last week during her hospitalization.Patient had presented to PCPs office on Saturday with significant shortness of breath, and respiratory expiratory wheezing, hypoxia with 86% O2 sat on room air, hemoglobin 7.6. Received a steroid injection. The following day,Saturday, at follow-up visit with PCP patient had worsening shortness of breath, hypotension, reported melanotic stools. Patient sent to the ER. On admission hemoglobin 6.9. Received one unit of packed RBCs with current hemoglobin 7.3. Troponin 0.111, 0.098. Denies chest pain, palpitations or increased shortness of breath. EKG normal sinus rhythm. KUB reported nonacute. Chest x-ray reported no active cardiopulmonary disease, no change. Afebrile, elevated WBC. Breathing significantly improved, maintaining O2 sats in the 90s on room air.VSS. Past Medical History Past Medical History: Atrial Fibrillation, COPD, CVA/TIA, Hypertension Additional Past Medical History / Comment(s): dizziness History of Any Multi-Drug Resistant Organisms: None Reported Past Surgical History: Adenoidectomy, Hysterectomy, Tonsillectomy Additional Past Surgical History / Comment(s): bowel resection Past Psychological History: Anxiety Smoking Status: Current every day smoker Past Alcohol Use History: None Reported Past Drug Use History: None Reported - Past Family History Mother Family Medical History: Cancer, Congestive Heart Failure (CHF) Father Family Medical History: Unable to Obtain Medications and Allergies Home Medications Medication Instructions Recorded Confirmed Type Apixaban [Eliquis] 5 mg PO BID #1 tab 09/16/19 09/23/19 Rx Aspirin 81 mg PO DAILY #30 chew 09/16/19 09/23/19 Rx Atorvastatin [Lipitor] 40 mg PO HS #30 tab 09/16/19 09/23/19 Rx Pantoprazole [Protonix] 40 mg PO AC-BRKFST #30 tablet. 09/16/19 09/23/19 Rx amLODIPine [Norvasc] 5 mg PO DAILY #30 tab 09/16/19 09/23/19 Rx predniSONE See Taper PO DAILY 09/23/19 09/23/19 History Allergies Allergy/AdvReac Type Severity Reaction Status Date / Time codeine Allergy Unknown Verified 09/23/19 16:14 Physical Exam Vitals: Vital Signs Temp Pulse Pulse Resp BP BP Pulse Ox 09/24/19 03:37 97.8 F 94 16 101/48 96 09/23/19 23:03 91 20 122/54 98 09/23/19 20:09 98.0 F 71 16 120/57 98 09/23/19 19:22 98.3 F 100 20 112/55 96 09/23/19 18:11 98.0 F 18 L 20 120/45 98 09/23/19 17:41 97.9 F 92 18 109/82 95 09/23/19 17:31 98.3 F 89 18 103/61 95 09/23/19 15:54 90 18 110/53 96 09/23/19 15:05 22 09/23/19 14:41 98.2 F 92 18 103/47 100 Intake and Output 09/23/19 09/24/19 09/24/19 22:59 06:59 14:59 Intake Total 310 240 Balance 310 240 Intake: Oral 240 Blood Product 310 Rc As-3 Unit 310 [id number] Other: Voiding Method Toilet # Voids 2 Weight 58.8 kg 58.8 kg VITAL SIGNS: As above GENERAL: Sitting up in bed, no acute distress HEENT:Pupils reactive to light, No facial asymmetry, Conjunctivae normal. Tongue midline NECK: Supple, No JVD. No thyroid enlargement. No LNs. Trachea midline, Left greater than right Bilateral bruit- CARDIOVASCULAR: S1, S2 regular. Systolic murmur. RESPIRATION: Breath sounds diminished in the bases. No rhonchi or crackles. Minimal expiratory wheezing. ABDOMEN: Soft, nontender . No guarding. no masses palpable.Bowel sounds heard. LEGS: No edema. no swelling. PSYCHIATRY: Alert and oriented X3, mood and affect normal. NERVOUS SYSTEM: Cranial N 2-12 grossly normal. Moves all 4 limbs. Speech fluent, appropriate. No focal deficits. Strength and sensation grossly intact. Skin: Warm and dry, no rash Results CBC & Chem 7: 09/24/19 02:37 09/23/19 15:15 Labs: Abnormal Lab Results - Last 24 Hours (Table) 09/23/19 09/23/19 09/23/19 Range/Units 15:15 15:15 15:15 WBC 16.1 H (3.8-10.6) k/uL RBC 2.40 L (3.80-5.40) m/uL Hgb 6.9 L* (11.4-16.0) gm/dL Hct 21.9 L (34.0-46.0) % MCHC (31.0-37.0) g/dL RDW 17.8 H (11.5-15.5) % Plt Count 454 H (150-450) k/uL Neutrophils # 14.1 H (1.3-7.7) k/uL Sodium 135 L (137-145) mmol/L BUN 33 H (7-17) mg/dL Glucose 123 H (74-99) mg/dL Troponin I 0.111 H* (0.000-0.034) ng/mL Total Protein 6.0 L (6.3-8.2) g/dL Urine Appearance (Clear) Urine Protein (Negative) Urine Blood (Negative) Ur Leukocyte Esterase (Negative) Hyaline Casts (0-2) /lpf Urine Mucus (None) /hpf Stool Occult Blood (Negative) Crossmatch 09/23/19 09/23/19 09/23/19 Range/Units 15:15 16:04 16:44 WBC (3.8-10.6) k/uL RBC (3.80-5.40) m/uL Hgb (11.4-16.0) gm/dL Hct (34.0-46.0) % MCHC (31.0-37.0) g/dL RDW (11.5-15.5) % Plt Count (150-450) k/uL Neutrophils # (1.3-7.7) k/uL Sodium (137-145) mmol/L BUN (7-17) mg/dL Glucose (74-99) mg/dL Troponin I (0.000-0.034) ng/mL Total Protein (6.3-8.2) g/dL Urine Appearance Cloudy H (Clear) Urine Protein Trace H (Negative) Urine Blood Moderate H (Negative) Ur Leukocyte Esterase Trace H (Negative) Hyaline Casts 29 H (0-2) /lpf Urine Mucus Few H (None) /hpf Stool Occult Blood Positive H (Negative) Crossmatch See Detail 09/23/19 09/24/19 Range/Units 20:39 02:37 WBC 12.1 H (3.8-10.6) k/uL RBC 2.61 L (3.80-5.40) m/uL Hgb 7.3 L (11.4-16.0) gm/dL Hct 23.5 L (34.0-46.0) % MCHC 30.9 L (31.0-37.0) g/dL RDW 17.5 H (11.5-15.5) % Plt Count (150-450) k/uL Neutrophils # 9.4 H (1.3-7.7) k/uL Sodium (137-145) mmol/L BUN (7-17) mg/dL Glucose (74-99) mg/dL Troponin I 0.098 H* (0.000-0.034) ng/mL Total Protein (6.3-8.2) g/dL Urine Appearance (Clear) Urine Protein (Negative) Urine Blood (Negative) Ur Leukocyte Esterase (Negative) Hyaline Casts (0-2) /lpf Urine Mucus (None) /hpf Stool Occult Blood (Negative) Crossmatch Thrombosis Risk Factor Assmnt - Choose All That Apply Any of the Below Risk Factors Present?: Yes Each Factor Represents 1 point: Abnormal pulmonary function (COPD) Other Risk Factors: Yes Each Risk Factor Represents 2 Points: Age 61-74 years Thrombosis Risk Factor Assessment Total Risk Factor Score: 3 Thrombosis Risk Factor Assessment Level: Moderate Risk Assessment and Plan Assessment: Acute GI bleed, in a patient recently placed on Eliquis and aspirin Acute blood loss, symptomatic anemia secondary to the above Elevated troponins, rule out acute coronary syndrome Right homonymous hemianopsia with recent acute CVA, suspected cardioembolic infarcts History of new onset Paroxysmal atrial fibrillation on prior admission Bilateral internal carotid artery stenosis, left greater than right, outpatient carotid endarterectomy pending [id number] Aphasia with mild to moderate cognitive impairment as per speech therapy evaluation Hypertension Chronic dizziness, vertigo Ongoing nicotine dependence Plan: Continue on current medication regime ,monitoring and symptomatic treatment. GI prophylaxis with Protonix.Aspirin and Eliquis on hold. GI and cardiology consult in place, recommendations pending. Maintaining clear liquid d iet, until evaluated by GI. Endoscopy as per GI. Home meds have been resumed accordingly. The impression and plan of care has been dictated as directed. : I performed a history and examination of this patient, discussed the same with the dictator. I agree with the dictator's note ,documented as a scribe. Any additional findings or plans will be noted.
--- NOTE | 2019-09-24 12:54 | ECHOF ---
Referral Reason:chest pain MEASUREMENTS -------- HEIGHT: 162.6 cm WEIGHT: 58.5 kg BP: 101/48 IVSd: 1.2 cm (0.6 - 1.1) LVIDd: 3.0 cm (3.9 - 5.3) LVPWd: 1.1 cm (0.6 - 1.1) IVSs: 1.3 cm LVIDs: 1.6 cm LVPWs: 1.3 cm FINDINGS -------- Sinus rhythm. Limited Study The left ventricular size is normal. There is mild concentric left ventricular hypertrophy. Overa ll left ventricular systolic function is normal with, an EF between 60 - 65 %. 5.0mg of Lumason was utilized for enhancement of images There is no pericardial effusion. CONCLUSIONS -------- 1. Sinus rhythm. 2. Limited Study 3. The left ventricular size is normal. 4. There is mild concentric left ventricular hypertrophy. 5. Overall left ventricular systolic function is normal with, an EF between 60 - 65 %. 6. 5.0mg of Lumason was utilized for enhancement of images 7. There is no pericardial effusion. HOME LENDING OFFICER: Sigrid Story RDCS
--- NOTE | 2019-09-24 13:04 | CONS ---
CONSULTATION CHIEF COMPLAINT: Dizziness and shortness of breath. Christin is a 74-year-old lady with history of TIA, hypertension, dyslipidemia, who presented to the hospital with symptoms of dizziness, fatigue, shortness of breath and not feeling well. She was found to have symptomatic anemia and for unclear reason she had a troponin drawn that came back slightly elevated due to which Cardiology had been consulted. Her primary problem is anemia secondary to acute blood loss. Her hemoglobin was at 11.2 a week ago, it dropped to 6.9. At the time of my evaluation, she is somewhat short of breath with activity and complains of dizziness. Her Eliquis is currently on hold. PAST MEDICAL HISTORY: Significant for TIA, hypertension, has history of vision loss involving right eye and she has bilateral carotid stenosis and also had episodes of atrial fibrillation due to which we started her on Eliquis. PAST SURGICAL HISTORY: Significant for adenoidectomy. MEDICATIONS: Medications at home included prednisone, Norvasc, Protonix, Lipitor, aspirin and apixaban. ALLERGIES: To CODEINE. FAMILY HISTORY: Negative for premature coronary artery disease. SOCIAL HISTORY: Negative for current smoking, EtOH abuse, or drug abuse. REVIEW OF SYSTEMS: HEENT is significant for dizziness and loss of vision. CARDIAC: As described above. RESPIRATORY: As described above. GI significant for GI bleed. Genitourinary negative. Allergy none. Immunology negative. Skin negative. Musculoskeletal significant for fatigue and tiredness. ELECTRICIAN RADIO significant for recent stroke. Rest of the system review is not relevant. PHYSICAL EXAM: Patient is comfortable at rest. Afebrile. Vital signs are stable. There is no jugular venous distention. Carotid upstroke is diminished. There is no bruit. Chest exam reveals good air entry bilaterally. Heart exam reveals first and second heart sounds. No gallop. Has a systolic murmur at the left lower sternal border. Abdomen soft. Exam of extremities did not reveal any edema. Peripheral pulses are felt. Labs show a hemoglobin of 7.3, platelet count of 390. Troponins are in the ledezma zone at 0.1 and 0.09. ASSESSMENT: 1. Acute blood loss anemia. 2. Elevated troponin probably related to supply demand mismatch. 3. Paroxysmal atrial fibrillation. 4. Cerebrovascular accident. PLAN: We will hold the Eliquis at this time. She is not a candidate for any evaluation for the elevated troponin at this time. I will consider performing a stress test on her in the outpatient setting. MMARLENEL / IJN: [id number] /
[2019-09-24 15:09] LABS: Anisocytosis Slight; HCT 24.6 % (34.0-46.0); HGB 7.9 gm/dL (11.4-16.0); Hypochromasia Marked; MCH 29.7 pg (25.0-35.0); MCV 92.9 fL (80.0-100.0); Macrocytosis Slight; Mean Platelet Volume 7.9; Platelet Count 414 k/uL (150-450); Poikilocytosis Slight; RBC 2.65 m/uL (3.80-5.40); WBC 13.8 k/uL (3.8-10.6)
[2019-09-24] MEDS ORDERED: ONDANSETRON 4 MG/2 ML VIAL IVP PRN (15:18)
[2019-09-24] MEDS ORDERED: DICYCLOMINE 20 MG TAB PO PRN (15:18)
[2019-09-24] MEDS: ALPRAZolam 0.5 MG TAB PO PRN (15:28)
[2019-09-24] MEDS ORDERED: PEG 3350-NA SULF,BICARB,CL/KCL 4,000 ML BOTTLE PO ONE (16:02)
[2019-09-24] MEDS ORDERED: bisacodyL 5 MG TABLET.DR PO STA (16:03)
--- NOTE | 2019-09-24 23:24 | P.CONS ---
History of Present Illness - Reason for Consult Consult date: 09/24/19 Symptomatic anemia Requesting physician: Medhat Sykes - Chief Complaint Anemia - History of Present Illness 74-year-old female with a medical history significant for CVA, bilateral carotid stenosis, paroxysmal atrial fibrillation on treatment with Eliquis and aspirin, as well as a prior history of complicated diverticulitis treated with partial colectomy at [facility] 6 years ago who presented to the hospital for evaluation of anemia. The patient had been seen in the outpatient setting by her primary care physician reporting symptoms of shortness of breath and weakness. Patient was found to be anemic and sent to the emergency department further evaluation. Patient does report that bowel movements have been dark. She feels that a lot of her symptoms started after beginning anticoagulation therapy with Eliquis. She reports at baseline bowel movements would be once daily normal in color and caliber but have been dark black over the past few days. She does report lower abdominal cramping and association with bowel movements. No gross bleeding per rectum. No nausea or vomiting or evidence of hematemesis. The patient denies any prior history of peptic ulcer disease. No prior EGD in the past. Her last colonoscopy was performed in association with the episode of diverticulitis 6 years ago at [facility]. She does report NSAID use but states that this is infrequent with Motrin taken a few times per month. KUB of the abdomen was negative for any acute intra-abdominal process. Hemoglobin on presentation was 6.9 with WBC 12.1, INR 1, total bilirubin 0.3, alkaline phosphatase 67, AST 18 and ALT 16 with stool testing positive for occult blood. Review of Systems REVIEW OF SYSTEMS: CONSTITUTIONAL: Denies any fevers, chills, weight change but does report fatigue. CARDIOVASCULAR: Denies any chest pain, palpitations high or low blood pressures RESPIRATORY: Denies any hemoptysis or cough but does report worsening shortness of breath. GENITOURINARY: No dysuria or hematuria. MUSCULOSKELETAL: No weakness reported. SKIN: Denies any new rashes or lesions, jaundice or pallor. PSYCHIATRIC: Denies any depression or anxiety. NEUROLOGY: Denies headache, denies any new focal deficits, right homonymous hemianopsia at baseline. EARS/NOSE/THROAT: No recent hearing change, congestion, nasal discharge or sore throat. EYES: No pain in eyes, discharge or change in vision, right homonymous hemianopsia at baseline. GASTROINTESTINAL: As per HPI. Past Medical History Past Medical History: Atrial Fibrillation, COPD, CVA/TIA, Hypertension Additional Past Medical History / Comment(s): dizziness History of Any Multi-Drug Resistant Organisms: None Reported Past Surgical History: Adenoidectomy, Hysterectomy, Tonsillectomy Additional Past Surgical History / Comment(s): bowel resection Past Psychological History: Anxiety Smoking Status: Current every day smoker Past Alcohol Use History: None Reported Past Drug Use History: None Reported - Past Family History Mother Family Medical History: Cancer, Congestive Heart Failure (CHF) Father Family Medical History: Unable to Obtain Medications and Allergies Home Medications Medication Instructions Recorded Confirmed Type Apixaban [Eliquis] 5 mg PO BID #1 tab 09/16/19 09/23/19 Rx Aspirin 81 mg PO DAILY #30 chew 09/16/19 09/23/19 Rx Atorvastatin [Lipitor] 40 mg PO HS #30 tab 09/16/19 09/23/19 Rx Pantoprazole [Protonix] 40 mg PO AC-BRKFST #30 tablet.dr 09/16/19 09/23/19 Rx amLODIPine [Norvasc] 5 mg PO DAILY #30 tab 09/16/19 09/23/19 Rx predniSONE See Taper PO DAILY 09/23/19 09/23/19 History Allergies Allergy/AdvReac Type Severity Reaction Status Date / Time codeine Allergy Unknown Verified 09/23/19 16:14 Physical Exam Vitals: Vital Signs Temp Pulse Pulse Resp BP BP Pulse Ox 09/24/19 08:00 97.2 F L 90 18 118/59 92 L 09/24/19 03:37 97.8 F 94 16 101/48 96 09/23/19 23:03 91 20 122/54 98 09/23/19 20:09 98.0 F 71 16 120/57 98 09/23/19 19:22 98.3 F 100 20 112/55 96 09/23/19 18:11 98.0 F 18 L 20 120/45 98 09/23/19 17:41 97.9 F 92 18 109/82 95 09/23/19 17:31 98.3 F 89 18 103/61 95 09/23/19 15:54 90 18 110/53 96 09/23/19 15:05 22 09/23/19 14:41 98.2 F 92 18 103/47 100 Intake and Output 09/23/19 09/24/19 09/24/19 22:59 06:59 14:59 Intake Total 310 240 Balance 310 240 Intake: Oral 240 Blood Product 310 Rc As-3 Unit 310 [id number] Other: Voiding Method Toilet Toilet # Voids 2 Weight 58.8 kg 58.8 kg On physical examination, patient appears comfortable in no apparent distress. HEAD: Normocephalic, atraumatic. EYES: No scleral icterus. No conjunctival injection. MOUTH: No lesions, tongue midline. NECK: Trachea midline, no gross abnormalities. CHEST: Decreased air entry in all lung hensley. HEART: Regular rate and rhythm. ABDOMEN: Soft, mildly tender to palpation. Bowel sounds are positive. No organomegaly. No guarding or rigidity. EXTREMITIES: No pedal edema. SKIN: No rashes, no jaundice. NEUROLOGIC: Alert and oriented x3. Results CBC & Chem 7: 09/24/19 14:49 09/23/19 15:15 Labs: Abnormal Lab Results - Last 24 Hours (Table) 09/23/19 09/23/19 09/23/19 Range/Units 15:15 15:15 15:15 WBC 16.1 H (3.8-10.6) k/uL RBC 2.40 L (3.80-5.40) m/uL Hgb 6.9 L* (11.4-16.0) gm/dL Hct 21.9 L (34.0-46.0) % MCHC (31.0-37.0) g/dL RDW 17.8 H (11.5-15.5) % Plt Count 454 H (150-450) k/uL Neutrophils # 14.1 H (1.3-7.7) k/uL Sodium 135 L (137-145) mmol/L BUN 33 H (7-17) mg/dL Glucose 123 H (74-99) mg/dL Troponin I 0.111 H* (0.000-0.034) ng/mL Total Protein 6.0 L (6.3-8.2) g/dL Urine Appearance (Clear) Urine Protein (Negative) Urine Blood (Negative) Ur Leukocyte Esterase (Negative) Hyaline Casts (0-2) /lpf Urine Mucus (None) /hpf Stool Occult Blood (Negative) Crossmatch 09/23/19 09/23/19 09/23/19 Range/Units 15:15 16:04 16:44 WBC (3.8-10.6) k/uL RBC (3.80-5.40) m/uL Hgb (11.4-16.0) gm/dL Hct (34.0-46.0) % MCHC (31.0-37.0) g/dL RDW (11.5-15.5) % Plt Count (150-450) k/uL Neutrophils # (1.3-7.7) k/uL Sodium (137-145) mmol/L BUN (7-17) mg/dL Glucose (74-99) mg/dL Troponin I (0.000-0.034) ng/mL Total Protein (6.3-8.2) g/dL Urine Appearance Cloudy H (Clear) Urine Protein Trace H (Negative) Urine Blood Moderate H (Negative) Ur Leukocyte Esterase Trace H (Negative) Hyaline Casts 29 H (0-2) /lpf Urine Mucus Few H (None) /hpf Stool Occult Blood Positive H (Negative) Crossmatch See Detail 09/23/19 09/24/19 Range/Units 20:39 02:37 WBC 12.1 H (3.8-10.6) k/uL RBC 2.61 L (3.80-5.40) m/uL Hgb 7.3 L (11.4-16.0) gm/dL Hct 23.5 L (34.0-46.0) % MCHC 30.9 L (31.0-37.0) g/dL RDW 17.5 H (11.5-15.5) % Plt Count (150-450) k/uL Neutrophils # 9.4 H (1.3-7.7) k/uL Sodium (137-145) mmol/L BUN (7-17) mg/dL Glucose (74-99) mg/dL Troponin I 0.098 H* (0.000-0.034) ng/mL Total Protein (6.3-8.2) g/dL Urine Appearance (Clear) Urine Protein (Negative) Urine Blood (Negative) Ur Leukocyte Esterase (Negative) Hyaline Casts (0-2) /lpf Urine Mucus (None) /hpf Stool Occult Blood (Negative) Crossmatch Abdominal x-ray: report reviewed (KUB x-ray of the abdomen negative for any acute intra-abdominal process.) Assessment and Plan (1) Symptomatic anemia Narrative/Plan: 74-year-old female with multiple medical comorbidities including atrial fibrillation on aspirin and Eliquis therapy who presented to the hospital for symptomatic normocytic normochromic anemia. Patient had been experiencing fatigue and worsening shortness of breath. She also noted loose dark bowel movements with associated lower abdominal cramping. No history of peptic ulcer disease. She does have a history of complicated diverticulitis requiring parti al colectomy at [facility] 6 years ago. Last colonoscopy in association with this episode of diverticulitis is years ago at [facility]. No excessive NSAID use but she will take Motrin a few times per month. Unclear etiology, may be related to GI bleed with differential including peptic ulcer disease, AVM, esophagitis, gastritis or other etiology. Current Visit: Yes Status: Acute Code(s): D64.9 - ANEMIA, UNSPECIFIED SNOMED Code(s): 055763415 (2) History of diverticulitis of colon Current Visit: Yes Status: Acute Code(s): Z87.19 - PERSONAL HISTORY OF OTHER DISEASES OF THE DIGESTIVE SYSTEM SNOMED Code(s): 655358281999565 Plan: Supportive care Okay for liquid diet Nothing by mouth after midnight Continue to monitor hemoglobin and hematocrit and transfuse as needed Continue to hold anticoagulation therapy Continue Protonix therapy Anemia laboratory evaluation ordered Bentyl added as needed for abdominal pain Plan for EGD and colonoscopy tomorrow for further evaluation Thank you for allowing us to participate in the care of the patient we will continue to follow
[2019-09-25] MEDS: SODIUM CHLORIDE 0.9% 1,000 ML IV SCH ×2 (01:00→18:08)
[2019-09-25 07:49] LABS: Reticulocyte % 5.5 % (0.5-2.0)
[2019-09-25 07:55] LABS: African American GFR (CKD) >90 (>60 ml/min/1.73 sqM); Anion Gap 5 mmol/L; Blood Urea Nitrogen 15 mg/dL (7-17); Calcium 7.9 mg/dL (8.4-10.2); Carbon Dioxide 29 mmol/L (22-30); Chloride 106 mmol/L (98-107); Glucose 72 mg/dL (74-99); LDH 597 U/L (313-618); Non-African American GFR(CKD) 86 (>60 ml/min/1.73 sqM); Potassium 4.3 mmol/L (3.5-5.1); Sodium 140 mmol/L (137-145)
[2019-09-25 08:03] LABS: Anisocytosis Slight; Basophils # (A) 0.1 k/uL (0-0.2); Basophils % (A) 1 %; Eosinophils # (A) 0.1 k/uL (0-0.7); Eosinophils % (A) 1 %; HCT 24.5 % (34.0-46.0); HGB 7.6 gm/dL (11.4-16.0); Hypochromasia Marked; Lymphocytes # (A) 1.8 k/uL (1.0-4.8); Lymphocytes % (A) 16 %; MCH 29.4 pg (25.0-35.0); MCHC 31.2 g/dL (31.0-37.0); MCV 94.2 fL (80.0-100.0); Macrocytosis Slight; Monocytes # (A) 0.5 k/uL (0-1.0); Monocytes % (A) 4 %; Neutrophils # (A) 9.1 k/uL (1.3-7.7); Neutrophils % (A) 78 %; Platelet Count 408 k/uL (150-450); Poikilocytosis Slight; RDW 18.2 % (11.5-15.5); WBC 11.7 k/uL (3.8-10.6)
[2019-09-25] MEDS: PANTOPRAZOLE 40 MG/10 ML VIAL IV SCH ×2 (09:05→19:57)
[2019-09-25] MEDS: amLODIPine 5 MG TAB PO SCH (09:05)
[2019-09-25] MEDS ORDERED: PROPOFOL 10 MG/ML 50 ML VIAL IV ONE (09:33)
[2019-09-25] MEDS ORDERED: LIDOCAINE 1% INJ 10MG/ML (20 ML MDV) ONE (09:33)
[2019-09-25] MEDS ORDERED: IV FLUID CONTINUATION 1,000 ML IV ONE (09:36)
--- NOTE | 2019-09-25 11:15 | P.PCN ---
Date of Procedure: 09/25/19 Description of Procedure: Brief history: 74-year-old female with a medical history significant for CVA, bilateral carotid stenosis, paroxysmal atrial fibrillation on treatment with Eliquis and aspirin, as well as a prior history of complicated diverticulitis treated with partial colectomy at [facility] 6 years ago who presented to the hospital for evaluation of anemia. The patient had been seen in the outpatient setting by her primary care physician reporting symptoms of shortness of breath and weakness. Patient was found to be anemic and sent to the emergency department further evaluation. Patient does report that bowel movements have been dark. She feels that a lot of her symptoms started after beginning anticoagulation therapy with Eliquis. She reports at baseline bowel movements would be once daily normal in color and caliber but have been dark black over the past few days. She does report lower abdominal cramping and association with bowel movements. No gross bleeding per rectum. No nausea or vomiting or evidence of hematemesis. The patient denies any prior history of peptic ulcer disease. No prior EGD in the past. Her last colonoscopy was performed in association with the episode of diverticulitis 6 years ago at [facility]. She does report NSAID use but states that this is infrequent with Motrin taken a few times per month. KUB of the abdomen was negative for any acute intra-abdominal process. Hemoglobin on presentation was 6.9 with WBC 12.1, INR 1, total bilirubin 0.3, alkaline phosphatase 67, AST 18 and ALT 16 with stool testing positive for occult blood. Procedure performed: Esophagogastroduodenoscopy with biopsy Colonoscopy aborted/incomplete Estimated blood loss: Minimal. Preoperative diagnosis: Iron deficiency anemia Anesthesia: MAC Procedure: After informed consent was obtained from the patient was brought into the endoscopy unit and IV sedation was administered by anesthesia under continuous monitoring. Initially upper endoscopy was done. The Olympus GF 190 video endoscope was inserted into the mouth and esophagus intubated without any difficulty and was gradually advanced into the stomach and duodenum and carefully examined. The bulb and second part of the duodenum appeared normal, with biopsies taken to rule out celiac sprue. The scope was then withdrawn into the stomach adequately insufflated with air and upon careful examination the antrum and body, cardia and fundus appeared normal, except for some mild scattered erythema in the antrum and body suggestive of mild gastritis with biopsies taken. The scope was then withdrawn into the esophagus. The GE junction was located at 37 cm to the incisors, with a small hiatal hernia noted. There were some nonobstructing Schatzki's ring in the distal esophagus. It appeared regular with no erythema erosions or ulcerations. Rest of the esophagus appeared normal. Patient tolerated the procedure well. At this time the patient continued to remain sedation. Initial digital rectal examination was normal. Olympus CF 190 video colonoscope was then inserted into the rectum but could not be advanced past a benign-appearing anastomotic stricture 15 cm from the anal verge. An attempt was then made to pass a pediatric colonoscope past this same stricture which was unsuccessful. A gastroscope was then inserted into the rectum and gradually advanced into the descending colon. Prep was poor with some stool and hemolyzed blood noted in the colon prohibiting complete visualization of mucosa. A few small and large mouth diverticula were noted in the colon. No active bleeding was seen. A few polyps were noted but not removed in the setting of GI bleed. Low-grade internal hemorrhoids were seen as the scope was withdrawn from rectum. Impression: 1. Mild gastritis antrum and body, biopsied. Nonobstructing distal esophageal Schatzki's ring. Biopsies of the duodenum taken. Small hiatal hernia. 2. No active bleeding noted on incomplete/aborted colonoscopy. 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 Diverticulosis. Low-grade internal hemorrhoids. Recommendations: Findings of this examination were discussed with the patient. Okay for full liquid diet. Continue to hold anticoagulation therapy. Await pathology from biopsies. Patient appears to be asymptomatic from stricture, however may benefit from colorectal surgery or advanced endoscopist evaluation after discharge for possible treatment of the stricture in the future.
[2019-09-25] MEDS: ALPRAZolam 0.5 MG TAB PO PRN ×2 (12:58→21:59)
[2019-09-25 13:44] LABS: % Iron Saturation 3.01 (12.00-45.00); Ferritin 18.7 ng/mL (10.0-291.0); Iron 11 ug/dL (50-170); Total Iron Binding Capacity 365 ug/dL (228-460)
--- NOTE | 2019-09-25 16:54 | PN ---
PROGRESS NOTE DATE OF SERVICE: 09/25/2019 This 74-year-old woman who recently had a stroke and stent, admitted with anemia. GI bleed suspect. Hemoglobin 7.3 and 7.6. The patient received [address] Davis performed upper EGD, showed mild gastritis in the antrum which was biopsied, nonobstructing distal esophageal Schatzki's ring was reported. The patient underwent a colonoscopy which was incomplete, diverticulosis and low-grade internal hemorrhoids also noted. The patient being closely monitored at this time. The patient is mildly confused. Past medical history reviewed. REVIEW OF SYSTEMS: CARDIOVASCULAR SYSTEM: No angina. Respiration: As mentioned earlier. GI as mentioned earlier. as mentioned earlier. Nervous system: No numbness or weakness. Current medications reviewed and include: 1. Xanax 0.5 p.o. q.i.d. p.r.n. 2. Norvasc 5 mg. 3. Bentyl. 4. Narcan. 5. Zofran. 6. Protonix. PHYSICAL EXAM: Patient is alert, oriented x3. Pulse 72. Blood pressure 84/60, respiration 18, temperature 98.4, pulse ox 94% on 2 L. HEENT: Conjunctivae normal. NECK: No JVD. CARDIOVASCULAR: S1, S2 muffled. RESPIRATION: Breath sounds diminished in the bases. A few rhonchi. No crackles. ABDOMEN: Soft, nontender. No mass palpable. LEGS are no edema. No swelling. NERVOUS SYSTEM: Diffusely weak. LAB STUDIES: WBC 11.2, hemoglobin 11.6, and iron is 11. Troponin 0.098. COVID-19 is negative. UA noted, hyaline casts. Stool OB is positive. ASSESSMENT: 1. Anemia with acute gastrointestinal bleed status post EGD showing mild antral gastritis and as well as nonobstructive distal esophageal Schatzki ring. 2. History of acute blood loss anemia. 3. Elevated troponin up to 0.098. Rule out acute slr-MG-utuyath-elevation myocardial infarction or type 2 myocardial infarction. 4. History of recent cerebrovascular accident, transient ischemic attack. 5. Atrial fibrillation. 6. Chronic obstructive pulmonary disease. 7. Hypertension. 8. History of dizziness. 9. Adenoidectomy. 10.History of hysterectomy. 11.History of anxiety. 12.History of nicotine dependence. 13.History of right homonymous hemianopsia. 14.Paroxysmal atrial fibrillation, new onset. 15.Bilateral carotid artery stenosis, left more than the right. RECOMMENDATIONS AND DISCUSSION: Recommend to continue current medications, symptomatic treatment. Otherwise, at this time, I recommend monitor hemoglobin closely. Transfuse if hemoglobin less than 7. Continue to monitor. Otherwise, repeat labs will be ordered. The white count is slightly elevated of undetermined etiology. Most recent chest x-ray done during the present admission shows no acute changes. See orders for details. Further recommendations to follow. MMODL / IJN: [id number] /
[2019-09-25] MEDS: ATORVASTATIN 40 MG TAB PO SCH (19:54)
[2019-09-25] MEDS ORDERED: IPRATROPIUM-ALBUTEROL 3 ML NEB INHALATION PRN (21:04)
[2019-09-26] MEDS ORDERED: IPRATROPIUM-ALBUTEROL 3 ML NEB INHALATION SCH (02:00)
[2019-09-26] MEDS: SODIUM CHLORIDE 0.9% 1,000 ML IV SCH (06:17)
[2019-09-26 07:21] LABS: Anisocytosis Slight; Basophils % (A) 0 %; Eosinophils # (A) 0.1 k/uL (0-0.7); Eosinophils % (A) 1 %; Hypochromasia Marked; Lymphocytes # (A) 1.9 k/uL (1.0-4.8); Lymphocytes % (A) 17 %; MCH 29.6 pg (25.0-35.0); MCHC 31.3 g/dL (31.0-37.0); MCV 94.7 fL (80.0-100.0); Macrocytosis Slight; Mean Platelet Volume 7.9; Monocytes # (A) 0.6 k/uL (0-1.0); Monocytes % (A) 5 %; Neutrophils # (A) 8.5 k/uL (1.3-7.7); Neutrophils % (A) 76 %; Platelet Count 383 k/uL (150-450); Poikilocytosis Slight; RBC 2.32 m/uL (3.80-5.40); WBC 11.3 k/uL (3.8-10.6)
[2019-09-26 07:26] LABS: African American GFR (CKD) >90 (>60 ml/min/1.73 sqM); Anion Gap 4 mmol/L; Blood Urea Nitrogen 10 mg/dL (7-17); Calcium 7.8 mg/dL (8.4-10.2); Carbon Dioxide 29 mmol/L (22-30); Chloride 106 mmol/L (98-107); Glucose 94 mg/dL (74-99); Non-African American GFR(CKD) 86 (>60 ml/min/1.73 sqM); Potassium 4.1 mmol/L (3.5-5.1); Sodium 139 mmol/L (137-145)
[2019-09-26 07:28] LABS: HGB 6.9 gm/dL (11.4-16.0)
[2019-09-26] MEDS: IPRATROPIUM-ALBUTEROL 3 ML NEB INHALATION SCH ×3 (07:48→19:14)
[2019-09-26] MEDS: BUDESONIDE 0.5 MG/2 ML NEBU INHALATION SCH ×3 (07:48→19:14)
[2019-09-26] MEDS: PANTOPRAZOLE 40 MG/10 ML VIAL IV SCH ×2 (08:05→20:43)
[2019-09-26] MEDS: amLODIPine 5 MG TAB PO SCH (08:05)
--- NOTE | 2019-09-26 11:08 | P.PN ---
Subjective Progress Note Date: 09/26/19 This 74-year-old female with history of previous CVA and paroxysmal atrial fibrillation who was on anticoagulation therapy was admitted with anemia, shortness of breath. Patient was evaluated by GI. The patient has some gastritis and biopsies of the stomach and duodenum was taken. Incomplete colonoscopy was done because of the stricture at the junction of the previous colectomy. Benign-looking stricture, however, malignancy cannot be excluded. Biopsy results are pending. Patient however doesn't want to go on anti- cognition therapy. She denies any chest pain or shortness of breath at this time Objective - Vital Signs Vital signs: Vital Signs Temp 98.0 F 09/26/19 07:55 Pulse 87 09/26/19 08:02 Resp 18 09/26/19 08:02 BP 113/56 09/26/19 07:55 Pulse Ox 100 09/26/19 07:55 Intake & Output 09/25/19 09/26/19 09/26/19 18:59 06:59 18:59 Intake Total 540 Balance 540 Weight 61.2 kg Intake: IV 300 Intake, IV Titration 240 Amount Sodium Chloride 0.9% 1, 240 000 ml @ 80 mls/hr IV . [id number] [facility] Rx#:[id number] Other: Voiding Method Toilet # Voids 2 - Exam GENERAL EXAM: Patient is alert and oriented and doesn't appear to be in any acute distress HEENT: Normocephalic. Normal reaction of pupils, equal size, normal range of extraocular motion. No erythema or exudates in the throat. NECK: No masses, no nuchal rigidity. CHEST: No chest wall deformity. LUNGS: Equal air entry with no crackles or wheeze. HEART: S1 and S2 normal with no audible mumurs or gallops. Regular rhythm, femorals equal on both sides.. ABDOMEN: No hepatosplenomegaly, normal bowel sounds, no guarding or rigidity. SKIN: No rashes CENTRAL NERVOUS SYSTEM: No focal deficits. EXTREMITIES: No cyanosis, clubbing or edema. - Labs CBC & Chem 7: 09/26/19 06:52 09/26/19 06:52 Labs: Abnormal Lab Results - Last 24 Hours (Table) 09/25/19 09/26/19 09/26/19 Range/Units 07:17 06:52 06:52 WBC 11.3 H (3.8-10.6) k/uL RBC 2.32 L (3.80-5.40) m/uL Hgb 6.9 L* (11.4-16.0) gm/dL Hct 22.0 L (34.0-46.0) % RDW 19.0 H (11.5-15.5) % Neutrophils # 8.5 H (1.3-7.7) k/uL Calcium 7.8 L (8.4-10.2) mg/dL Iron 11 L (50-170) ug/dL % Saturation 3.01 L (12.00-45.00) Assessment and Plan (1) History of CVA (cerebrovascular accident) Current Visit: Yes Status: Acute Code(s): Z86.73 - PRSNL HX OF TIA (TIA), AND CEREB INFRC W/O RESID DEFICITS SNOMED Code(s): 431536820 (2) Anemia Current Visit: Yes Status: Acute Code(s): D64.9 - ANEMIA, UNSPECIFIED SNOMED Code(s): 134366091 (3) Elevated troponin Current Visit: Yes Status: Acute Code(s): R79.89 - OTHER SPECIFIED ABNORMAL FINDINGS OF BLOOD CHEMISTRY SNOMED Code(s): 214770861 (4) GI bleed Current Visit: Yes Status: Acute Code(s): K92.2 - GASTROINTESTINAL HEMORRHAGE, UNSPECIFIED SNOMED Code(s): 35774977 (5) Paroxysmal atrial fibrillation Current Visit: Yes Status: Acute Code(s): I48.0 - PAROXYSMAL ATRIAL FIBRILLATION SNOMED Code(s): 493990867 Plan: Patient is cardiac-rogers stable. Patient doesn't want to go on anticoagulation therapy at this time. GI also recommended to hold off anticoagulation. Continue current medical therapy
[2019-09-26] MEDS ORDERED: FUROSEMIDE 10 MG/ML 2 ML VIAL IV ONE (12:43)
[2019-09-26] MEDS: ALPRAZolam 0.5 MG TAB PO PRN (17:49)
[2019-09-26] MEDS: ATORVASTATIN 40 MG TAB PO SCH (20:43)
--- NOTE | 2019-09-26 23:06 | XR ---
EXAMINATION TYPE: XR chest 1V portable DATE OF EXAM: 09/26/2019 COMPARISON: NONE HISTORY: Weakness short of breath TECHNIQUE: FINDINGS: There is blunting of the costophrenic angles. Heart size is normal. There is no gross heart failure. There are no hilar masses. Thoracic aorta is atheromatous. IMPRESSION: There are small pleural effusions bilaterally. Fluid appears new compared to old exam. No obvious heart failure seen. Normal heart.
--- NOTE | 2019-09-26 23:24 | PN ---
PROGRESS NOTE I am covering for Dr. Sykes. DATE OF SERVICE: 09/26/2019 This 74-year-old woman who was admitted with history of stroke, also had anemia. The patient had a 2D echo with Doppler showed ejection fraction about 60-65 percent. The patient also had EGD by Dr. Davis which showed mild gastritis. No active bleeding was noted. However, today the hemoglobin is found to be 6.1. One unit transfusion arranged. Patient closely monitored. Patient complains of weakness. Past medical history reviewed. REVIEW OF SYSTEMS: CARDIOVASCULAR SYSTEM: No angina. RESPIRATIONS as mentioned earlier. GI as mentioned. : No dysuria. NERVOUS SYSTEM: No numbness or weakness. CURRENT MEDICATIONS: Reviewed and include: 1. DuoNeb q.i.d. 2. Xanax. 3. Norvasc. 4. Lipitor. 5. Pulmicort. 6. Bentyl. 7. Narcan. 8. Protonix. 9. Zofran. PHYSICAL EXAM: Patient is alert, oriented times three. Pulse is 95, blood pressure 130/52. Respirations 18, temp 97.1, pulse ox 89 percent on room air. HEENT: Conjunctivae normal. Oral mucosa moist. NECK is no jugular venous distention. No carotid bruit. No lymph node enlargement. CARDIOVASCULAR system: S1, S2 muffled. RESPIRATION: Breath sounds diminished in the bases. A few scattered rhonchi and crackles. ABDOMEN: Soft, nontender. LEGS are no edema. No swelling. NERVOUS SYSTEM: No focal deficits. LABS: WBC 7.4, hemoglobin 6.9. ASSESSMENT: 1. Anemia with acute upper gastrointestinal bleeding, status post EGD showing antral gastritis as well as nonobstructive distal esophageal Schatzki ring. 2. Status post multiple blood transfusion. 3. History of acute blood-loss anemia. 4. Elevated troponin up to 0.098, rule out acute yxl-KV-qulvywi-elevation myocardial infarction or type 2 myocardial infarction. 5. Hypoxia. 6. History of recent cerebrovascular accident/transient ischemic attack. 7. Atrial fibrillation, chronic. 8. Chronic obstructive pulmonary disease. 9. Hypertension. 10.History of dizziness. 11.Adenoidectomy. 12.History of hysterectomy. 13.History of anxiety. 14.History of nicotine dependence. 15.History of right homonymous hemianopsia. 16.History of paroxysmal atrial fibrillation new onset. 17.Bilateral carotid artery stenosis, left more than the right. 18.FULL CODE. RECOMMENDATIONS AND DISCUSSION: I recommend to continue current management and treatment. Otherwise at this time, I would also recommend a portable chest x-ray stat and 1 unit transfusion as mentioned earlier. Otherwise, repeat hemoglobin. Closely follow with Gastroenterology. Prognosis guarded because of multiple complex medical issues. The patient might need more testing if the anemia persists. MMODL / IJN: [id number] /
--- NOTE | 2019-09-26 23:35 | P.PN ---
Subjective Progress Note Date: 09/26/19 Principal diagnosis: Symptomatic anemia, diverticulosis, colonic stricture, gastritis, hiatal hernia Patient is seen lying in bed reporting that she tolerated diet. She is denying any signs or symptoms to bleed. No abdominal pain. Objective - Vital Signs Vital signs: Vital Signs Temp 98.0 F 09/26/19 07:55 Pulse 87 09/26/19 08:02 Resp 18 09/26/19 08:02 BP 113/56 09/26/19 07:55 Pulse Ox 100 09/26/19 07:55 Intake & Output 09/25/19 09/26/19 09/26/19 18:59 06:59 18:59 Intake Total 540 Balance 540 Weight 61.2 kg Intake: IV 300 Intake, IV Titration 240 Amount Sodium Chloride 0.9% 1, 240 000 ml @ 80 mls/hr IV . [id number] [facility] Rx#:[id number] Other: Voiding Method Toilet # Voids 2 - Exam On physical examination, patient appears comfortable in no apparent distress. HEAD: Normocephalic, atraumatic. EYES: No scleral icterus. No conjunctival injection. MOUTH: No lesions, tongue midline. NECK: Trachea midline, no gross abnormalities. ABDOMEN: Soft, obese. Bowel sounds are positive. No organomegaly. No guarding or rigidity. EXTREMITIES: No pedal edema. SKIN: No rashes, no jaundice. NEUROLOGIC: Alert and oriented x3. No focal deficits. - Labs CBC & Chem 7: 09/26/19 06:52 09/26/19 06:52 Labs: Abnormal Lab Results - Last 24 Hours (Table) 09/25/19 09/26/19 09/26/19 Range/Units 07:17 06:52 06:52 WBC 11.3 H (3.8-10.6) k/uL RBC 2.32 L (3.80-5.40) m/uL Hgb 6.9 L* (11.4-16.0) gm/dL Hct 22.0 L (34.0-46.0) % RDW 19.0 H (11.5-15.5) % Neutrophils # 8.5 H (1.3-7.7) k/uL Calcium 7.8 L (8.4-10.2) mg/dL Iron 11 L (50-170) ug/dL % Saturation 3.01 L (12.00-45.00) Assessment and Plan (1) Symptomatic anemia Narrative/Plan: 74-year-old female with multiple medical comorbidities including atrial fibrillation on aspirin and Eliquis therapy who presented to the hospital for symptomatic normocytic normochromic anemia. Patient had been experiencing fatigue and worsening shortness of breath. She also noted loose dark bowel movements with associated lower abdominal cramping. No history of peptic ulcer disease. She does have a history of complicated diverticulitis requiring partial colectomy at [facility] 6 years ago. Last colonoscopy in association with this episode of diverticulitis is years ago at [facility]. No excessive NSAID use but she will take Motrin a few times per month. EGD and colonoscopy performed with no active bleeding noted but some hemolyzed blood in the colon, the patient had hiatal hernia, gastritis and nonobstructing Schatzki's ring on EGD and a benign appearing anastomotic site stricture in the rectum which prohibited full colonoscopy with limited exam performed with endoscope with findings of diverticulosis, a few small polyps and the stricture as mentioned. Current Visit: Yes Status: Acute Code(s): D64.9 - ANEMIA, UNSPECIFIED SNOMED Code(s): 688587518 (2) History of diverticulitis of colon Current Visit: Yes Status: Acute Code(s): Z87.19 - PERSONAL HISTORY OF OTHER DISEASES OF THE DIGESTIVE SYSTEM SNOMED Code(s): 336424631721337 Plan: Supportive care Okay for diet Continue to monitor hemoglobin and hematocrit and transfuse as needed Patient seen by cardiology and is not interested in resuming anticoagulation therapy Continue Protonix therapy Anemia laboratory evaluation ordered Bentyl added as needed for abdominal pain Thank you for allowing us to participate in the care of the patient we will continue to follow
[2019-09-27] MEDS: SODIUM CHLORIDE 0.9% 1,000 ML IV SCH ×2 (05:44→08:40)
[2019-09-27 07:39] LABS: Anisocytosis Slight; Basophils # (A) 0.1 k/uL (0-0.2); Basophils % (A) 1 %; Eosinophils # (A) 0.1 k/uL (0-0.7); Eosinophils % (A) 1 %; HCT 26.6 % (34.0-46.0); Hypochromasia Moderate; Lymphocytes # (A) 1.6 k/uL (1.0-4.8); Lymphocytes % (A) 15 %; MCH 29.5 pg (25.0-35.0); MCHC 32.2 g/dL (31.0-37.0); MCV 91.7 fL (80.0-100.0); Macrocytosis Slight; Mean Platelet Volume 8.1; Monocytes # (A) 0.7 k/uL (0-1.0); Monocytes % (A) 7 %; Neutrophils # (A) 8.1 k/uL (1.3-7.7); Neutrophils % (A) 76 %; Platelet Count 379 k/uL (150-450); Poikilocytosis Slight; RDW 18.9 % (11.5-15.5); WBC 10.7 k/uL (3.8-10.6)
[2019-09-27 07:42] LABS: African American GFR (CKD) >90 (>60 ml/min/1.73 sqM); Anion Gap 5 mmol/L; Blood Urea Nitrogen 9 mg/dL (7-17); Calcium 7.7 mg/dL (8.4-10.2); Carbon Dioxide 33 mmol/L (22-30); Chloride 101 mmol/L (98-107); Glucose 102 mg/dL (74-99); Non-African American GFR(CKD) 85 (>60 ml/min/1.73 sqM); Potassium 3.5 mmol/L (3.5-5.1); Sodium 139 mmol/L (137-145)
[2019-09-27 07:46] LABS: HGB 8.6 gm/dL (11.4-16.0)
[2019-09-27] MEDS: IPRATROPIUM-ALBUTEROL 3 ML NEB INHALATION SCH ×3 (07:54→20:08)
[2019-09-27] MEDS: BUDESONIDE 0.5 MG/2 ML NEBU INHALATION SCH ×2 (07:54→20:08)
[2019-09-27] MEDS: amLODIPine 5 MG TAB PO SCH (08:40)
[2019-09-27] MEDS: PANTOPRAZOLE 40 MG/10 ML VIAL IV SCH (08:40)
--- NOTE | 2019-09-27 11:23 | P.PN ---
Subjective Progress Note Date: 09/27/19 This 74-year-old female with history of previous CVA and paroxysmal atrial fibrillation who was on anticoagulation therapy was admitted with anemia, shortness of breath. Patient was evaluated by GI. The patient has some gastritis and biopsies of the stomach and duodenum was taken. Incomplete colonoscopy was done because of the stricture at the junction of the previous colectomy. Benign-looking stricture, however, malignancy cannot be excluded. Biopsy results are pending. Patient however doesn't want to go on anti- cognition therapy. She denies any chest pain or shortness of breath at this time. 09/27/2019: This 74-year-old female with history of atrial fibrillation and previous CVA is admitted to the hospital with anemia and GI reading. Patient's hemoglobin dropped yesterday. Patient received one unit of blood transfusion. Her hemoglobin is 8.6. She is feeling better. She doesn't want to take anticoagulation. No complaints of any chest pain or shortness of breath. From Cardec standpoint patient is stable. If cleared by GI, patient could be discharged home. Follow-up with Dr. Cox as an outpatient Objective - Vital Signs Vital signs: Vital Signs Temp 98.8 F 09/27/19 08:43 Pulse 94 09/27/19 08:43 Resp 20 09/27/19 08:43 BP 134/55 09/27/19 08:43 Pulse Ox 90 L 09/27/19 08:43 Intake & Output 09/26/19 09/27/19 09/27/19 18:59 06:59 18:59 Intake Total 910 Balance 910 Weight 61.1 kg Intake: Oral 600 Blood Product 310 Rc As-1 Unit 310 [id number] Other: Voiding Method Toilet # Voids 2 - Exam GENERAL EXAM: Patient is alert and oriented and doesn't appear to be in any acute distress HEENT: Normocephalic. Normal reaction of pupils, equal size, normal range of extraocular motion. No erythema or exudates in the throat. NECK: No masses, no nuchal rigidity. CHEST: No chest wall deformity. LUNGS: Equal air entry with no crackles or wheeze. HEART: S1 and S2 normal with no audible mumurs or gallops. Regular rhythm, femorals equal on both sides.. ABDOMEN: No hepatosplenomegaly, normal bowel sounds, no guarding or rigidity. SKIN: No rashes CENTRAL NERVOUS SYSTEM: No focal deficits. EXTREMITIES: No cyanosis, clubbing or edema. - Labs CBC & Chem 7: 09/27/19 06:51 09/27/19 06:51 Labs: Abnormal Lab Results - Last 24 Hours (Table) 09/23/19 09/27/19 09/27/19 Range/Units 15:15 06:51 06:51 WBC 10.7 H (3.8-10.6) k/uL RBC 2.90 L (3.80-5.40) m/uL Hgb 8.6 L D (11.4-16.0) gm/dL Hct 26.6 L (34.0-46.0) % RDW 18.9 H (11.5-15.5) % Neutrophils # 8.1 H (1.3-7.7) k/uL Carbon Dioxide 33 H (22-30) mmol/L Glucose 102 H (74-99) mg/dL Calcium 7.7 L (8.4-10.2) mg/dL Crossmatch See Detail Assessment and Plan (1) History of CVA (cerebrovascular accident) Current Visit: Yes Status: Acute Code(s): Z86.73 - PRSNL HX OF TIA (TIA), AND CEREB INFRC W/O RESID DEFICITS SNOMED Code(s): 696721886 (2) Anemia Current Visit: Yes Status: Acute Code(s): D64.9 - ANEMIA, UNSPECIFIED SNOMED Code(s): 295271614 (3) Elevated troponin Current Visit: Yes Status: Acute Code(s): R79.89 - OTHER SPECIFIED ABNORMAL FINDINGS OF BLOOD CHEMISTRY SNOMED Code(s): 480181868 (4) GI bleed Current Visit: Yes Status: Acute Code(s): K92.2 - GASTROINTESTINAL HEMORRHAGE, UNSPECIFIED SNOMED Code(s): 95738740 (5) Paroxysmal atrial fibrillation Current Visit: Yes Status: Acute Code(s): I48.0 - PAROXYSMAL ATRIAL FIBRILLATION SNOMED Code(s): 469612382 Plan: Patient hemoglobin is stable. Patient is also seemed to be free of any chest pain. Possible discharge if cleared by GI. Follow-up in the office
[2019-09-27] MEDS: ALPRAZolam 0.5 MG TAB PO PRN (12:02)
--- NOTE | 2019-09-27 17:29 | P.PN ---
Subjective Progress Note Date: 09/27/19 Principal diagnosis: Symptomatic anemia, diverticulosis, colonic stricture, gastritis, hiatal hernia Patient is seen lying in bed reporting that she tolerated diet. She is denying any signs or symptoms to bleed. No abdominal pain. She is feeling better after transfusion yesterday. Objective - Vital Signs Vital signs: Vital Signs Temp 98.8 F 09/27/19 08:43 Pulse 94 09/27/19 08:43 Resp 20 09/27/19 08:43 BP 134/55 09/27/19 08:43 Pulse Ox 90 L 09/27/19 08:43 Intake & Output 09/26/19 09/27/19 09/27/19 18:59 06:59 18:59 Intake Total 910 Balance 910 Weight 61.1 kg Intake: Oral 600 Blood Product 310 Rc As-1 Unit 310 [id number] Other: Voiding Method Toilet # Voids 2 - Exam On physical examination, patient appears comfortable in no apparent distress. HEAD: Normocephalic, atraumatic. EYES: No scleral icterus. No conjunctival injection. MOUTH: No lesions, tongue midline. NECK: Trachea midline, no gross abnormalities. ABDOMEN: Soft, obese. Bowel sounds are positive. No organomegaly. No guarding or rigidity. EXTREMITIES: No pedal edema. SKIN: No rashes, no jaundice. NEUROLOGIC: Alert and oriented x3. No focal deficits. - Labs CBC & Chem 7: 09/27/19 06:51 09/27/19 06:51 Labs: Abnormal Lab Results - Last 24 Hours (Table) 09/23/19 09/27/19 09/27/19 Range/Units 15:15 06:51 06:51 WBC 10.7 H (3.8-10.6) k/uL RBC 2.90 L (3.80-5.40) m/uL Hgb 8.6 L D (11.4-16.0) gm/dL Hct 26.6 L (34.0-46.0) % RDW 18.9 H (11.5-15.5) % Neutrophils # 8.1 H (1.3-7.7) k/uL Carbon Dioxide 33 H (22-30) mmol/L Glucose 102 H (74-99) mg/dL Calcium 7.7 L (8.4-10.2) mg/dL Crossmatch See Detail Assessment and Plan (1) Symptomatic anemia Narrative/Plan: 74-year-old female with multiple medical comorbidities including atrial fibrillation on aspirin and Eliquis therapy who presented to the hospital for symptomatic normocytic normochromic anemia. Patient had been experiencing fatigue and worsening shortness of breath. She also noted loose dark bowel movements with associated lower abdominal cramping. No history of peptic ulcer disease. She does have a history of complicated diverticulitis requiring partial colectomy at [facility] 6 years ago. Last colonoscopy in assoc iation with this episode of diverticulitis is years ago at [facility]. No excessive NSAID use but she will take Motrin a few times per month. EGD and colonoscopy performed with no active bleeding noted but some hemolyzed blood in the colon, the patient had hiatal hernia, gastritis and nonobstructing Schatzki's ring on EGD and a benign appearing anastomotic site stricture in the rectum which prohibited full colonoscopy with limited exam performed with endoscope with findings of diverticulosis, a few small polyps and the stricture as mentioned. Hemoglobin improved today at 8.6 after transfusion of PRBCs. Current Visit: Yes Status: Acute Code(s): D64.9 - ANEMIA, UNSPECIFIED SNOMED Code(s): 682185667 (2) History of diverticulitis of colon Current Visit: Yes Status: Acute Code(s): Z87.19 - PERSONAL HISTORY OF OTHER DISEASES OF THE DIGESTIVE SYSTEM SNOMED Code(s): 229168406317497 Plan: Supportive care Okay for diet Continue to monitor hemoglobin and hematocrit and transfuse as needed Patient seen by cardiology and is not interested in resuming anticoagulation therapy Continue Protonix therapy Anemia laboratory evaluation with evidence of iron deficiency IV Ferrlecit ordered Bentyl added as needed for abdominal pain Thank you for allowing us to participate in the care of the patient we will continue to follow
[2019-09-27] MEDS: SODIUM FERRIC GLUCONAT-SUCROSE 125 MG in SODIUM CHLORIDE 0.9% 100 ML IVPB SCH (17:56)
[2019-09-27] MEDS ORDERED: FUROSEMIDE 10 MG/ML 2 ML VIAL IV ONE (19:30)
[2019-09-27] MEDS: ATORVASTATIN 40 MG TAB PO SCH (19:42)
[2019-09-27] MEDS: PANTOPRAZOLE 40 MG TABLET PO SCH (19:42)
--- NOTE | 2019-09-28 04:27 | PN ---
PROGRESS NOTE DATE OF SERVICE: 09/27/2019 I am covering for Dr. Sykes. This 74-year-old woman who was admitted with anemia, had an EGD by Dr. Davis showed only mild gastritis. No active bleeding was noted, but hemoglobin dropped. After transfusion, hemoglobin today is 8.6. Patient is extremely emotional today. The patient is crying and the patient will be closely monitored. Most recent chest x-ray which was reviewed personally by me showed some bilateral pleural effusions at this time. PAST MEDICAL HISTORY: Reviewed. REVIEW OF SYSTEMS: CARDIOVASCULAR SYSTEM: No angina. RESPIRATORY SYSTEM: As mentioned earlier. GI: As mentioned earlier. : No dysuria. NERVOUS SYSTEM: No numbness or weakness. CURRENT MEDICATIONS: Current medications are reviewed and include: 1. DuoNeb q.i.d. and p.r.n. 2. Xanax. 3. Norvasc. 4. Lipitor. 5. Pulmicort. 6. Bentyl. 7. Iron sulfate. 8. Narcan. 9. Zofran. 10.Protonix. PHYSICAL EXAMINATION: The patient is alert and oriented x3. Pulse 103, blood pressure 119/43, respiration 20, temperature 98.9, pulse ox 91% on room air. HEENT: Conjunctivae normal. NECK: No jugular venous distention. CARDIOVASCULAR: S1, S2 muffled. RESPIRATORY: Breath sounds diminished at the bases. Bilateral scattered rhonchi and crackles. ABDOMEN: Soft, nontender. LEGS: No edema, no swelling. NERVOUS SYSTEM: No focal deficits. LABS: WBC 10.7, hemoglobin is 8.6. ASSESSMENT: 1. Anemia with acute upper gastrointestinal bleeding, status post EGD showing antral gastritis as well as nonobstructive distal esophageal Schatzki ring. 2. Status post multiple blood transfusions. 3. History of acute blood-loss anemia. 4. Elevated troponin up to 0.098, rule out acute hhc-QZ-oyfiqqp-elevation myocardial infarction or type 2 myocardial infarction. 5. Hypoxia. 6. History of recent cerebrovascular accident, transient ischemic attack. 7. Bilateral pleural effusion, atelectasis. 8. Atrial fibrillation, chronic. 9. Chronic obstructive pulmonary disease. 10.Hypertension. 11.History of dizziness. 12.History of adenoidectomy. 13.History of anxiety. 14.History of hysterectomy. 15.History of nicotine dependence. 16.History of right homonymous hemianopsia. 17.History of paroxysmal atrial fibrillation, new onset. 18.Bilateral carotid stenosis, left more than the right. 19.FULL CODE. RECOMMENDATIONS AND DISCUSSION: Recommend to continue current medications, continues symptomatic treatment. Repeat labs. Otherwise, at this time I would recommend to continue the current medications, continue symptomatic treatment. Continue with bronchodilators, incentive spirometry. I will cut down the IV fluids at this time, dose of Lasix. See orders for details. Closely follow with multiple consultants. Prognosis guarded. Further recommendations to follow. MMODL / IJN: [id number] /
[2019-09-28] MEDS: IPRATROPIUM-ALBUTEROL 3 ML NEB INHALATION SCH ×2 (07:54→11:58)
[2019-09-28] MEDS: BUDESONIDE 0.5 MG/2 ML NEBU INHALATION SCH (07:54)
[2019-09-28 08:01] LABS: Anisocytosis Slight; Basophils # (A) 0.1 k/uL (0-0.2); Basophils % (A) 1 %; Eosinophils # (A) 0.1 k/uL (0-0.7); Eosinophils % (A) 1 %; HCT 27.3 % (34.0-46.0); HGB 8.3 gm/dL (11.4-16.0); Hypochromasia Moderate; Lymphocytes # (A) 1.4 k/uL (1.0-4.8); Lymphocytes % (A) 15 %; MCH 27.9 pg (25.0-35.0); MCHC 30.6 g/dL (31.0-37.0); MCV 91.3 fL (80.0-100.0); Mean Platelet Volume 7.7; Monocytes # (A) 0.7 k/uL (0-1.0); Monocytes % (A) 7 %; Neutrophils # (A) 6.8 k/uL (1.3-7.7); Neutrophils % (A) 73 %; Platelet Count 374 k/uL (150-450); Poikilocytosis Slight; RBC 2.99 m/uL (3.80-5.40); RDW 18.9 % (11.5-15.5); WBC 9.3 k/uL (3.8-10.6)
[2019-09-28 08:04] LABS: African American GFR (CKD) >90 (>60 ml/min/1.73 sqM); Anion Gap 3 mmol/L; Blood Urea Nitrogen 8 mg/dL (7-17); Calcium 7.7 mg/dL (8.4-10.2); Carbon Dioxide 35 mmol/L (22-30); Chloride 100 mmol/L (98-107); Glucose 96 mg/dL (74-99); Non-African American GFR(CKD) >90 (>60 ml/min/1.73 sqM); Potassium 3.7 mmol/L (3.5-5.1); Sodium 138 mmol/L (137-145)
[2019-09-28 08:31] VITALS: RESP 20
[2019-09-28] MEDS: PANTOPRAZOLE 40 MG TABLET PO SCH (09:11)
[2019-09-28] MEDS: SODIUM FERRIC GLUCONAT-SUCROSE 125 MG in SODIUM CHLORIDE 0.9% 100 ML IVPB SCH (09:46)
[2019-09-28] MEDS: amLODIPine 5 MG TAB PO SCH (12:18)
[2019-09-28 15:28] VITALS: BP 108/54; PULSE 91; TEMP 99.3
--- NOTE | 2019-09-28 16:31 | PN ---
PROGRESS NOTE DATE OF DICTATION: 09/28/2019 Patient is a 74-year-old pleasant white female with history of atrial fibrillation, on Eliquis, currently on hold. She an EGD and colonoscopy by Dr. Davis 3 days ago for severe symptomatic anemia and hemoglobin of 6.9 g/dL. Iron indices were consistent with iron deficiency anemia. Ferritin was 18. Iron saturation was 3%. She did have an EGD and colonoscopy done by him on September 24. Upper endoscopy showed gastritis. Colonoscopy was incomplete and the scope was advanced only up to the descending colon because of a tight stricture at the previous sigmoid colon resection that was done 6 years ago. In the meantime, she is doing well. She denies any complaints. She is on a regular diet, tolerating well. She reports no abdominal pain. No nausea or vomiting. No rectal bleeding. PHYSICAL EXAMINATION: She appears comfortable. No apparent distress. VITAL SIGNS: Stable. Blood pressure is 130/86, pulse rate 88, and temperature 98.8. HEENT examination unremarkable. Conjunctivae pink. Sclerae anicteric. Oral cavity no lesions. NECK: No JVD or lymph node enlargement. CHEST: Clear to auscultation. HEART: Regular rate and rhythm. ABDOMEN: Soft. Bowel sounds are positive. No organomegaly. EXTREMITIES: No pedal edema. SKIN: No rashes. NEUROLOGIC: She is alert and oriented x3. No focal deficits. LABS: Labs from today show WBC 9.3, hemoglobin 8.3, platelets normal. Basic metabolic panel is within normal limits. IMPRESSION: 1. Severe symptomatic anemia with a hemoglobin of 6.9 requiring two units of blood transfusion. Currently hemoglobin is stable at 8.6 g/dL. Status post EGD and incomplete colonoscopy by Dr. Davis 3 days ago that showed antral gastritis as well as a tight stricture at the previous sigmoid colon resection. The rest of the colon could not be adequately visualized. 2. Atrial fibrillation, on Eliquis, currently on hold. 3. Elevated troponin; Cardiology following the patient. 4. History of chronic obstructive pulmonary disease. 5. History of cerebrovascular accident in the past. RECOMMENDATIONS: 1. Recommend double-contrast barium enema or a CT colonography on an outpatient basis to evaluate the rest of the colon, as colonoscopy by Dr. Davis was incomplete, and the right colon and transverse colon could not be visualized because of a tight left-sided stricture from previous surgery. The patient really wants to go home today and hence I suggested that she can follow up with Dr. Davis in 1-2 weeks, and this can be arranged on an outpatient basis. 2. Continue with symptomatic and supportive care. 3. Since there is no evidence of active bleeding, Eliquis can be resumed at this time. We will follow with you closely. Thank you for this consultation. BING / CHARISSAN: [id number] /
--- NOTE | 2019-09-28 16:43 | P.PN ---
Subjective Progress Note Date: 09/28/19 This 74-year-old female with history of previous CVA and paroxysmal atrial fibrillation who was on anticoagulation therapy was admitted with anemia, shortness of breath. Patient was evaluated by GI. The patient has some gastritis and biopsies of the stomach and duodenum was taken. Incomplete colonoscopy was done because of the stricture at the junction of the previous colectomy. Benign-looking stricture, however, malignancy cannot be excluded. Biopsy results are pending. Patient however doesn't want to go on anti- cognition therapy. She denies any chest pain or shortness of breath at this time. 09/27/2019: This 74-year-old female with history of atrial fibrillation and previous CVA is admitted to the hospital with anemia and GI reading. Patient's hemoglobin dropped yesterday. Patient received one unit of blood transfusion. Her hemoglobin is 8.6. She is feeling better. She doesn't want to take anticoagulation. No complaints of any chest pain or shortness of breath. From Cardec standpoint patient is stable. If cleared by GI, patient could be discharged home. Follow-up with Dr. Cox as an outpatient. 09/28/2019: This patient has remained stable. Hemoglobin is stable. GI recommends that patient can go on anticoagulation therapy. We'll discuss with the patient regarding her willingness to go on anticoagulation. If not patient will be given choice of having watchman procedure. Otherwise patient will continue current medical therapy. Follow-up with Dr. Cox Objective - Vital Signs Vital signs: Vital Signs Temp 99.3 F 09/28/19 15:27 Pulse 91 09/28/19 15:27 Resp 20 09/28/19 16:00 BP 108/54 09/28/19 15:27 Pulse Ox 91 L 09/28/19 15:27 Intake & Output 09/27/19 09/28/19 09/28/19 18:59 06:59 18:59 Intake Total 580 Output Total 101 Balance -101 580 Weight 59.6 kg Intake: IV 100 Sodium Ferric Gluconat- 100 Sucrose 125 mg In Sodium Chloride 0.9% 100 ml @ 100 mls/hr IVPB DAILY [facility] Rx#:[id number] Oral 480 Output: Urine 101 Other: Voiding Method Toilet Toilet # Voids 1 1 # Bowel Movements 0 0 - Exam GENERAL EXAM: Patient is alert and oriented and doesn't appear to be in any acute distress HEENT: Normocephalic. Normal reaction of pupils, equal size, normal range of extraocular motion. No erythema or exudates in the throat. NECK: No masses, no nuchal rigidity. CHEST: No chest wall deformity. LUNGS: Equal air entry with no crackles or wheeze. HEART: S1 and S2 normal with no audible mumurs or gallops. Regular rhythm, femorals equal on both sides.. ABDOMEN: No hepatosplenomegaly, normal bowel sounds, no guarding or rigidity. SKIN: No rashes CENTRAL NERVOUS SYSTEM: No focal deficits. EXTREMITIES: No cyanosis, clubbing or edema. - Labs CBC & Chem 7: 09/28/19 07:04 09/28/19 07:04 Labs: Abnormal Lab Results - Last 24 Hours (Table) 09/25/19 09/28/19 09/28/19 Range/Units 07:17 07:04 07:04 RBC 2.99 L (3.80-5.40) m/uL Hgb 8.3 L (11.4-16.0) gm/dL Hct 27.3 L (34.0-46.0) % MCHC 30.6 L (31.0-37.0) g/dL RDW 18.9 H (11.5-15.5) % Haptoglobin 243.0 H (31.2-198.0) mg/dL Carbon Dioxide 35 H (22-30) mmol/L Calcium 7.7 L (8.4-10.2) mg/dL Assessment and Plan (1) History of CVA (cerebrovascular accident) Current Visit: Yes Status: Acute Code(s): Z86.73 - PRSNL HX OF TIA (TIA), AND CEREB INFRC W/O RESID DEFICITS SNOMED Code(s): 084613647 (2) Anemia Current Visit: Yes Status: Acute Code(s): D64.9 - ANEMIA, UNSPECIFIED SNOMED Code(s): 519863387 (3) Elevated troponin Current Visit: Yes Status: Acute Code(s): R79.89 - OTHER SPECIFIED ABNORMAL FINDINGS OF BLOOD CHEMISTRY SNOMED Code(s): 886810911 (4) GI bleed Current Visit: Yes Status: Acute Code(s): K92.2 - GASTROINTESTINAL HEMORRHAGE, UNSPECIFIED SNOMED Code(s): 86152129 (5) Paroxysmal atrial fibrillation Current Visit: Yes Status: Acute Code(s): I48.0 - PAROXYSMAL ATRIAL FIBRILLATION SNOMED Code(s): 723210939 Plan: Clinically stable. Hemoglobin is stable. Patient has no interest in going on anticoagulation therapy. GI recommended that patient could go back on blood thinners. Patient will be given choice of watchman procedure. Follow-up as an outpatient
--- NOTE | 2019-09-29 09:25 | CDI ---
Documentation Clarification Form Date: 09/28/2019 03:30:00 PM From: Petrona Maxwell RN, CCDS Admit Date: 09/23/2019 04:37:00 PM Patient Name: Christin Baca Visit Number: [id number] Discharge Date: 09/28/2019 06:37:00 PM ATTENTION: The Clinical Documentation Specialists (CDI) and [employer] Coding Staff appreciate your assistance in clarifying documentation. Please respond to the clarification below the line at the bottom and electronically sign. The CDI & [employer] Coding staff will review the response and follow-up if needed. Please note: Queries are made part of the Legal Health Record. If you have any questions, please contact the author of this message via ITS. Dr. Jet Cox Patient presented on 09/22 with troponin of: 0.111, 0.09. In your consult on 09/23 you have indicated elevated troponin probably related to supply demand mismatch. Request further specificity of supply and demand mismatch. 09/27 Medicine (Dr. Rogel) progress note: "Elevated troponin up to 0.098, rule out acute tco-[id number]-elevated myocardial infarction or type 2 myocardial infarction." Patient history/risk factors: Paroxysmal atrial fibrillation, CVA, Clinical indicators: 74-year-old female presented to ED on 09/22 with symptoms of dizziness, fatigue, shortness of breath and not feeling well. She was found to have symptomatic anemia and had troponin drawn that came back slightly elevated. Cardiology consult on 09/23 has documented primary problem is anemia secondary to acute blood loss. Elevated troponin probably related to supply demand mismatch. Treatment: Monitor CBC Transfuse packed red blood cells (Total = 2 units, transfused 09/22 and 09/25) 7 ECHO: Overall left ventricular systolic function is normal with, an EF between 60-65 % 09/23 GI consult: symptomatic anemia, 09/24 EGD with biopsy mild gastritis. In your professional opinion, can you please specify the diagnosis, if any, indicated by the above clinical indicators and treatment? Type 2 Myocardial Infarction secondary to anemia Other, please specify Unable to determine (Last Revision: December 2016) unable MTDD
--- NOTE | 2019-09-29 09:56 | CDI ---
Documentation Clarification Form Date: 09/29/2019 09:35:42 AM From: Petrona Maxwell RN, CCDS Admit Date: 09/23/2019 04:37:00 PM Patient Name: Christin Baca Visit Number: [id number] Discharge Date: 09/28/2019 06:37:00 PM ATTENTION: The Clinical Documentation Specialists (CDI) and [facility] Coding Staff appreciate your assistance in clarifying documentation. Please respond to the clarification below the line at the bottom and electronically sign. The CDI & [facility] Coding staff will review the response and follow-up if needed. Please note: Queries are made part of the Legal Health Record. If you have any questions, please contact the author of this message via ITS. Dr. Deyanira Rogel Patient had presented to PCPs office on Saturday with significant shortness of breath, and respiratory expiratory wheezing, hypoxia with 86% O2 sat on room air, hemoglobin 7.6. 09/25 assessment has hypoxia and further specificity is requested. History/Risk Factors: COPD, Hypertension, Tobacco use: Current every day smoker Clinical Indicators: 74-year-old female presented to ED on 09/22 with symptoms of dizziness, fatigue, shortness of breath and not feeling well. She was found to have symptomatic anemia. 09/24 12:00 Vital signs: 99/'50 89 85 % RA @ 00:00 91/43 93 18 97.1 93 % 2/L NC 09/25@ 11:55 85/44 96 18 98.9 90 % 2/L NC 09/22 Chest x-ray No active cardiopulmonary disease 09/25 Chest x-ray there are small pleural effusions bilaterally. Fluid appears new compared to old exam. No obvious heart failure. Normal heart. 09/24 progress note: Lung/Breathing assessment: Breath sounds diminished in the bases. A few rhonchi, No crackles Treatment: Monitor CBC Transfuse packed red blood cells (Total = 2 units, transfused 09/22 and 09/25) ECHO: Overall left ventricular systolic function is normal with, an EF between 60-65 % 09/23 GI consult: symptomatic anemia, 09/24 EGD with biopsy mild gastritis. Monitor O@ Sat's (Titrate) DuoNeb qid Pulmicort 0.5 mg inhalation bid In your professional opinion, can you please clarify if these findings signify one of the following conditions? Acute Hypoxic Respiratory Failure Acute on Chronic Hypoxic Respiratory Failure Chronic Hypoxic Respiratory Failure Other Diagnosis, please specify Unable to determine Specificity: If known, further specify (if known): With hypercapnia? (pCO2 >50 and pH <7.35) With hypoxia? (pO2 <60 mm Hg or SpO2 <91% on room air) (Last Query Form Revision: November 2018) Unable to determine MTDD
--- NOTE | 2019-10-14 21:23 | P.DS ---
Providers Date of admission: 09/23/19 16:37 Expected date of discharge: 09/28/19 Attending physician: Medhat Sykes Consults: 09/23/19 16:38 Consult Physician Routine Consulting Provider: Alexandra Cox Consult Reason/Comments: GI bleed, anemia Do you want consulting provider notified?: Yes 09/23/19 17:17 Consult Physician Routine Consulting Provider: Jet Cox Consult Reason/Comments: Elevated troponin, normal EKG, no chest pain Do you want consulting provider notified?: Yes Primary care physician: Medhat Sykes - Discharge Diagnosis(es) (1) GI bleed Status: Acute (2) History of CVA (cerebrovascular accident) Status: Acute (3) History of diverticulitis of colon Status: Acute (4) Paroxysmal atrial fibrillation Status: Acute (5) Symptomatic anemia Status: Acute Hospital Course: Patient presented to Hospital acute GI bleed she was recently placed on anticoagulation for acute stroke with a right denisse-anopsia. She was found to be severely anemic and symptomatic low 7.6. She underwent transfusion 2 units of packed RBCs her shortness of breath and dizziness improved as well as her blood pressure. Patient refused to take any further anticoagulation. She is stable enough for discharge still has multiple medical problems have been discussed in detail including the need for a right carotid endarterectomy. She underwent GI evaluation is pending further evaluation Patient Condition at Discharge: Fair Plan - Discharge Summary Discharge Rx Participant: No New Discharge Prescriptions: New Pantoprazole [Protonix] 40 mg PO BID #30 tablet. ALPRAZolam [Xanax] 0.5 mg PO QID PRN tab PRN Reason: Anxiety Continue Atorvastatin [Lipitor] 40 mg PO HS #30 tab amLODIPine [Norvasc] 5 mg PO DAILY #30 tab Pantoprazole [Protonix] 40 mg PO AC-BRKFST #30 tablet. predniSONE See Taper PO DAILY Discontinued Aspirin 81 mg PO DAILY #30 chew Apixaban [Eliquis] 5 mg PO BID #1 tab Discharge Medication List Atorvastatin [Lipitor] 40 mg PO HS #30 tab 09/16/19 [Rx] Pantoprazole [Protonix] 40 mg PO AC-BRKFST #30 tablet. 09/16/19 [Rx] amLODIPine [Norvasc] 5 mg PO DAILY #30 tab 06/24/20 [Rx] predniSONE See Taper PO DAILY 09/23/19 [History] ALPRAZolam [Xanax] 0.5 mg PO QID PRN tab 09/28/19 [Rx] Pantoprazole [Protonix] 40 mg PO BID #30 tablet. 09/28/19 [Rx] Follow up Appointment(s)/Referral(s): Randal Mcelroy MD [STAFF PHYSICIAN] - 09/30/19 1:30 pm (possible Watchman ) Medhat Sykes DO [Primary Care Provider] - 10/08/19 11:40 am [facility] [NON-STAFF] - 1-2 Days Denae Hassan DO [STAFF PHYSICIAN] - As Needed Afshin Davis MD [STAFF PHYSICIAN] - 10/06/19 1:15 pm (with Kimberli El) Patient Instructions/Handouts: How to Stop Smoking (DC), Gastrointestinal Bleeding (DC), Heart Healthy Diet (DC) Discharge Disposition: HOME WITH HOME HEALTH SERVICES Plan of Treatment: Patient will be discharged today in stable condition. She'll has to undergo further GI evaluation which is set up for her. She will also have to eventually undergo further evaluation carotid occlusive disease. We'll monitor hemoglobin level GI bleed stabilized her COPD is stabilized at this time as well follow up in office in 1 week.
== END 2019-09-28 18:37 | disposition home health service (06) | DRG 378 ==
LOC: EC 14:34 → 3SCARD 16:37
PROVIDERS: ADMIT Family Medicine; ATTEND Family Medicine
PROC: 0DB78ZX Excision of Stomach, Pylorus, Via Natural or Artificial Opening Endoscopic, Diagnostic (ICD-10-PCS; principal; 2019-09-25 09:00)
PROC: 0DB68ZX Excision of Stomach, Via Natural or Artificial Opening Endoscopic, Diagnostic (ICD-10-PCS; principal; 2019-09-25 09:00)
PROC: 0DB98ZX Excision of Duodenum, Via Natural or Artificial Opening Endoscopic, Diagnostic (ICD-10-PCS; principal; 2019-09-25 09:00)
PROC: 0DJD8ZZ Inspection of Lower Intestinal Tract, Via Natural or Artificial Opening Endoscopic (ICD-10-PCS; principal; 2019-09-25 09:00)
DX: K92.2 Gastrointestinal hemorrhage, unspecified (principal); D62 Acute posthemorrhagic anemia; J90 Pleural effusion, not elsewhere classified; J98.11 Atelectasis; K91.89 Other postprocedural complications and disorders of digestive system; K22.2 Esophageal obstruction; H53.461 Homonymous bilateral field defects, right side; R79.89 Other specified abnormal findings of blood chemistry; R09.02 Hypoxemia; D50.9 Iron deficiency anemia, unspecified; E78.5 Hyperlipidemia, unspecified; Z11.59 Encounter for screening for other viral diseases; F17.200 Nicotine dependence, unspecified, uncomplicated; F41.9 Anxiety disorder, unspecified; H54.7 Unspecified visual loss; I10 Essential (primary) hypertension; I48.0 Paroxysmal atrial fibrillation; I65.23 Occlusion and stenosis of bilateral carotid arteries; J44.9 Chronic obstructive pulmonary disease, unspecified; K29.70 Gastritis, unspecified, without bleeding; K44.9 Diaphragmatic hernia without obstruction or gangrene; K57.30 Diverticulosis of large intestine without perforation or abscess without bleeding; K64.8 Other hemorrhoids; R42 Dizziness and giddiness; I69.320 Aphasia following cerebral infarction; K63.5 Polyp of colon; Z79.01 Long term (current) use of anticoagulants; Z79.82 Long term (current) use of aspirin; Z79.899 Other long term (current) drug therapy; Z90.710 Acquired absence of both cervix and uterus; Z88.5 Allergy status to narcotic agent; Z90.49 Acquired absence of other specified parts of digestive tract; Z82.49 Family history of ischemic heart disease and other diseases of the circulatory system; Z80.9 Family history of malignant neoplasm, unspecified; Y83.2 Surgical operation with anastomosis, bypass or graft as the cause of abnormal reaction of the patient, or of later complication, without mention of misadventure at the time of the procedure
CPT/HCPCS: 36415; 36430; 43239; 45378; 71045; 71046; 74018; 80048; 80053; 81001; 82272; 82550; 82607; 82728; 83010; 83540; 83550; 83605; 83615; 83735; 84466; 84484; 85025; 85027; 85045; 85610; 85730; 86850; 86900; 86901; 86920; 88305; 93005; 93308; 94640; 99291

== ENCOUNTER 2019-10-21 12:39 | Emergency (ER) | payer MEDICARE ==
--- NOTE | 2019-10-21 15:02 | ED ---
General Adult HPI - General Chief complaint: Recheck/Abnormal Lab/Rx Stated complaint: Started new med has concerns Time Seen by Provider: 10/21/19 12:53 Source: patient, RN notes reviewed, old records reviewed Mode of arrival: wheelchair Limitations: no limitations - History of Present Illness Initial comments: 74-year-old female patient with multiple comorbidities presents ED for evaluation of dark stool. Patient for these recent started on iron supplementation her stools have been darker than normal last few days. She denies any other acute complaints. She wants to make sure that is not blood she denies any bright red blood. She is declining any other workup with the exception of a rectal exam to rule out the presence of blood. Systemic: Pt denies fatigue, fever/chills, rash. Pt denies weakness, night sweats, weight loss. Neuro: Pt denies headache, visual disturbances, syncope or pre-syncope. HEENT: Pt denies ocular discharge or irritation, otalgia, rhinorrhea, pharyngitis or notable lymphadenopathy. Cardiopulmonary: Pt denies chest pain, SOB, heart palpitations, dyspnea on exertion. Abdominal/GI: Pt denies abdominal pain, n/v/d. : Pt denies dysuria, burning w/ urination, frequency/urgency. Denies new onset urinary or bowel incontinence. MSK: Pt denies myalgia, loss of strength or function in extremities. Neuro: Pt denies new onset weakness, paresthesias. - Related Data Home Medications Medication Instructions Recorded Confirmed predniSONE See Taper PO DAILY 09/23/19 09/23/19 Previous Rx's Medication Instructions Recorded Atorvastatin [Lipitor] 40 mg PO HS #30 tab 09/16/19 Pantoprazole [Protonix] 40 mg PO AC-BRKFST #30 tablet. 09/16/19 amLODIPine [Norvasc] 5 mg PO DAILY #30 tab 09/16/19 ALPRAZolam [Xanax] 0.5 mg PO QID PRN tab 09/28/19 Pantoprazole [Protonix] 40 mg PO BID #30 tablet. 09/28/19 Allergies Allergy/AdvReac Type Severity Reaction Status Date / Time codeine Allergy Unknown Verified 10/21/19 12:51 Review of Systems ROS Statement: Those systems with pertinent positive or pertinent negative responses have been documented in the HPI. ROS Other: All systems not noted in ROS Statement are negative. Past Medical History Past Medical History: Atrial Fibrillation, COPD, CVA/TIA, Hypertension Additional Past Medical History / Comment(s): dizziness History of Any Multi-Drug Resistant Organisms: None Reported Past Surgical History: Adenoidectomy, Hysterectomy, Tonsillectomy Additional Past Surgical History / Comment(s): bowel resection Past Psychological History: Anxiety Smoking Status: Former smoker Past Alcohol Use History: None Reported Past Drug Use History: None Reported - Past Family History Mother Family Medical History: Cancer, Congestive Heart Failure (CHF) Father Family Medical History: Unable to Obtain General Exam - General Exam Comments Initial Comments: Constitutional: NAD, AOX3, Pt has pleasant affect. HEENT: NC/AT, trachea midline, neck supple, External ears appear normal, without discharge. Mucous membranes moist. EOM intact. There is no scleral icterus. No pallor noted. Cardiopulmonary: RRR, no murmurs, rubs or gallops, no JVD noted. Lungs CTAB in anterior and posterior hensley. No peripheral edema. Abdominal exam: Abdomen soft and non-distended. Abdomen non-tender to palpation in all 4 quadrants. Bowel sounds active in LLQ. No hepatosplenomegaly. No ecchymosis Neuro: CN II-XII grossly intact. No nuchal rigidity. No raccon eyes, no jordan sign, no hemotympanum. No cervical spinal tenderness. MSK: Full active ROM in upper and lower extremities, 5/5 stregnth. Rectal: Brown stool noted. No bright red blood. No external hemorrhoids are noted. Limitations: no limitations Course Vital Signs 10/21/19 10/21/19 12:46 15:06 Temperature 99.5 F 97.9 F Pulse Rate 97 89 Respiratory 18 20 Rate Blood Pressure 135/60 148/79 O2 Sat by Pulse 94 L 94 L Oximetry Medical Decision Making - Medical Decision Making 74-year-old female patient with multiple comorbidities presents ED for e valuation of dark stool. Patient for these recent started on iron supplementation her stools have been darker than normal last few days. She denies any other acute complaints. She wants to make sure that is not blood she denies any bright red blood. She is declining any other workup with the exception of a rectal exam to rule out the presence of blood. Pt VSS, afebrile. Physical exam did not display acute pathology. Occult blood is negative. Once again I reinforced the patient that I recommended further workup including laboratory investigations imaging. She is declining all of this. She is aware of the risks as I stated I cannot rule out any abnormalities which could cause or disablement. She verbalized understanding. Case discussed with Dr. Gomez. - Lab Data Lab Results 10/21/19 Range/Units 13:33 Stool Occult Blood Negative (Negative) Disposition Clinical Impression: Dark stools Disposition: HOME SELF-CARE Condition: Stable Instructions (If sedation given, give patient instructions): Iron Supplements (By mouth) Additional Instructions: Follow-up with primary care provider tomorrow. Return to ER if condition worsens in any way. Is patient prescribed a controlled substance at d/c from ED?: No Referrals: Medhat Sykes DO [Primary Care Provider] - 1-2 days
[2019-10-21 15:07] VITALS: BP 148/79; PULSE 89; RESP 20; TEMP 97.9
== END 2019-10-21 15:06 | disposition home or self-care (01) ==
LOC: EC 12:39
DX: R19.5 Other fecal abnormalities (principal); J44.9 Chronic obstructive pulmonary disease, unspecified; Z79.52 Long term (current) use of systemic steroids; Z88.5 Allergy status to narcotic agent; Z87.891 Personal history of nicotine dependence; Z86.73 Personal history of transient ischemic attack (TIA), and cerebral infarction without residual deficits
CPT/HCPCS: 36415; 82272; 99283

== ENCOUNTER 2019-11-09 18:34 | Emergency (ER) | payer MEDICARE ==
[2019-11-09 18:47] VITALS: TEMP 98
--- NOTE | 2019-11-09 19:52 | ED ---
Extremity Problem HPI - General Chief complaint: Extremity Problem,Nontraumatic Stated complaint: lt leg swelling Time Seen by Provider: 11/09/19 18:58 Source: patient, family Mode of arrival: wheelchair Limitations: no limitations - History of Present Illness Initial comments: 74-year-old female patient with past medical history significant for anemia, GI bleed, high blood pressure presents to the emergency department today for evaluation of left leg swelling. Patient states that her left leg has been swollen for the last 2-3 weeks. He states that the leg feels tight. She denies any focal pain. Denies redness to the foot or leg. Denies any fever or chills. Denies history of DVT. She does have a history of A. fib, not currently taking any blood thinners due to suspected GI bleed. She denies any chest pain. States that she is generally short of breath related to her COPD and this has not changed or worsened. Denies any cough or hemoptysis. Patient denies any recent rash, abdominal pain, nausea, vomiting, diarrhea, constipation, back pain, numbness, tingling, dizziness, weakness, hematuria, dysuria, urinary urgency, urinary frequency, headache, visual changes, or any other complaints. - Related Data Home Medications Medication Instructions Recorded Confirmed ALPRAZolam [Xanax] 0.5 mg PO Q8H PRN 11/09/19 11/09/19 Albuterol Sulfate [Ventolin HFA] 2 puff INHALATION RT-QID PRN 11/09/19 11/09/19 Dulera (Unknown Strength) 2 puff INHALATION RT-BID 11/09/19 11/09/19 Ferrous Sulfate [Iron] 325 mg PO TID 11/09/19 11/09/19 Ipratropium-Albuterol Nebulize 3 ml INHALATION RT-QID PRN 11/09/19 11/09/19 [Duoneb 0.5 mg-3 mg/3 ml Soln] Meclizine HCl 25 mg PO TID PRN 11/09/19 11/09/19 Previous Rx's Medication Instructions Recorded Atorvastatin [Lipitor] 40 mg PO HS #30 tab 09/16/19 amLODIPine [Norvasc] 5 mg PO DAILY #30 tab 09/16/19 Pantoprazole [Protonix] 40 mg PO BID #30 tablet. 09/28/19 Furosemide [Lasix] 20 mg PO DAILY #3 tab 11/09/19 predniSONE 50 mg PO DAILY #5 tablet 11/09/19 Allergies Allergy/AdvReac Type Severity Reaction Status Date / Time codeine Allergy Unknown Verified 11/09/19 20:58 naproxen Allergy Nausea & Verified 11/09/19 20:58 Vomiting amoxicillin AdvReac Nausea & Verified 11/09/19 20:58 Vomiting & Diarrhea ciprofloxacin [From Cipro] AdvReac Nausea & Verified 11/09/19 20:58 Vomiting & Diarrhea metronidazole [From Flagyl] AdvReac Nausea & Verified 11/09/19 20:58 Vomiting & Diarrhea Review of Systems ROS Statement: Those systems with pertinent positive or pertinent negative responses have been documented in the HPI. ROS Other: All systems not noted in ROS Statement are negative. Past Medical History Past Medical History: Atrial Fibrillation, COPD, CVA/TIA, Hypertension Additional Past Medical History / Comment(s): dizziness History of Any Multi-Drug Resistant Organisms: None Reported Past Surgical History: Adenoidectomy, Hysterectomy, Tonsillectomy Additional Past Surgical History / Comment(s): bowel resection Past Psychological History: Anxiety Smoking Status: Former smoker Past Alcohol Use History: None Reported Past Drug Use History: None Reported - Past Family History Mother Family Medical History: Cancer, Congestive Heart Failure (CHF) Father Family Medical History: Unable to Obtain General Exam Limitations: no limitations General appearance: alert, in no apparent distress, other (This is a well- developed, well-nourished elderly female patient in no acute distress. Vital signs upon presentation are temperature 98.0F, pulse 94, respirations 18, blood pressure 151/68, pulse ox 95% on room air.) ENT exam: Present: normal exam, normal oropharynx, mucous membranes moist Respiratory exam: Present: rales (At the bases posteriorly). Absent: normal lung sounds bilaterally, respiratory distress, wheezes, rhonchi, stridor Cardiovascular Exam: Present: regular rate, normal rhythm, normal heart sounds. Absent: systolic murmur, diastolic murmur, rubs, gallop, clicks GI/Abdominal exam: Present: soft, normal bowel sounds. Absent: distended, tenderness, guarding, rebound, rigid Extremities exam: Present: full ROM, normal capillary refill, other (There is 2+ pitting edema noted to the left leg generally. There is some erythema noted over the foot and toes. Pedal and posttibial pulses are 2+ and equal bila terally. There is mild swelling noted to the right leg, 1+ pitting. Skin is otherwise pink, warm, dry. Cap refill less than 3 seconds.). Absent: normal inspection, tenderness, pedal edema, joint swelling, calf tenderness Neurological exam: Present: alert, oriented X3, CN II-XII intact Psychiatric exam: Present: normal affect, normal mood Skin exam: Present: warm, dry, intact, normal color. Absent: rash Course Vital Signs 11/09/19 11/09/19 11/09/19 18:40 20:27 21:00 Temperature 98.0 F Pulse Rate 94 86 84 Respiratory 18 22 20 Rate Blood Pressure 151/68 138/62 138/64 O2 Sat by Pulse 95 92 L 96 Oximetry Medical Decision Making - Medical Decision Making 74-year-old female patient presents to the emergency department today for evaluation of left lower extremity swelling for the last 3 weeks. Physical examination did reveal 2+ pitting edema to the left leg, 1+ pitting edema to the right leg. Lungs did reveal crackles at the bases. Labs reviewed and did reveal a normal white blood cell count. BNP was 545. Other labs were unremarkable. Ultrasound of the left leg was negative for DVT. Chest x-ray showed very small bilateral pleural effusions, interstitial fibrosis or pneumonia however given afebrile status, normal white blood cell count, no cough pneumonia is unlikely. We will discharge with a 3 day course of Lasix. She will be given a course of prednisone for her lungs. She is instructed follow up with her primary care physician for recheck in 1-2 days. Return parameters were discussed in detail. She verbalizes understanding and agrees with this plan. - Lab Data Result diagrams: 11/09/19 19:34 11/09/19 19:34 Lab Results 11/09/19 11/09/19 11/09/19 Range/Units 19:34 19:34 19:34 WBC 10.8 H (3.8-10.6) k/uL RBC 4.20 (3.80-5.40) m/uL Hgb 11.2 L (11.4-16.0) gm/dL Hct 37.6 (34.0-46.0) % MCV 89.5 D (80.0-100.0) fL MCH 26.6 (25.0-35.0) pg MCHC 29.7 L (31.0-37.0) g/dL RDW 17.6 H (11.5-15.5) % Plt Count 406 (150-450) k/uL Neutrophils % 68 % Lymphocytes % 19 % Monocytes % 8 % Eosinophils % 2 % Basophils % 1 % Neutrophils # 7.3 (1.3-7.7) k/uL Lymphocytes # 2.0 (1.0-4.8) k/uL Monocytes # 0.9 (0-1.0) k/uL Eosinophils # 0.2 (0-0.7) k/uL Basophils # 0.1 (0-0.2) k/uL Hypochromasia Marked Anisocytosis Slight PT 10.7 (9.0-12.0) sec INR 1.0 (<1.2) APTT 25.9 (22.0-30.0) sec Sodium 136 L (137-145) mmol/L Potassium 5.1 (3.5-5.1) mmol/L Chloride 103 (98-107) mmol/L Carbon Dioxide 24 (22-30) mmol/L Anion Gap 9 mmol/L BUN 12 (7-17) mg/dL Creatinine 0.72 (0.52-1.04) mg/dL Est GFR (CKD-EPI)AfAm >90 (>60 ml/min/1.73 sqM) Est GFR (CKD-EPI)NonAf 84 (>60 ml/min/1.73 sqM) Glucose 98 (74-99) mg/dL Calcium 8.7 (8.4-10.2) mg/dL Magnesium 2.0 (1.6-2.3) mg/dL Total Bilirubin 0.6 (0.2-1.3) mg/dL AST 50 H (14-36) U/L ALT 19 (4-34) U/L Alkaline Phosphatase 107 (38-126) U/L NT-Pro-B Natriuret Pep pg/mL Total Protein 6.7 (6.3-8.2) g/dL Albumin 3.5 (3.5-5.0) g/dL 11/09/19 Range/Units 20:50 WBC (3.8-10.6) k/uL RBC (3.80-5.40) m/uL Hgb (11.4-16.0) gm/dL Hct (34.0-46.0) % MCV (80.0-100.0) fL MCH (25.0-35.0) pg MCHC (31.0-37.0) g/dL RDW (11.5-15.5) % Plt Count (150-450) k/uL Neutrophils % % Lymphocytes % % Monocytes % % Eosinophils % % Basophils % % Neutrophils # (1.3-7.7) k/uL Lymphocytes # (1.0-4.8) k/uL Monocytes # (0-1.0) k/uL Eosinophils # (0-0.7) k/uL Basophils # (0-0.2) k/uL Hypochromasia Anisocytosis PT (9.0-12.0) sec INR (<1.2) APTT (22.0-30.0) sec Sodium (137-145) mmol/L Potassium (3.5-5.1) mmol/L Chloride (98-107) mmol/L Carbon Dioxide (22-30) mmol/L Anion Gap mmol/L BUN (7-17) mg/dL Creatinine (0.52-1.04) mg/dL Est GFR (CKD-EPI)AfAm (>60 ml/min/1.73 sqM) Est GFR (CKD-EPI)NonAf (>60 ml/min/1.73 sqM) Glucose (74-99) mg/dL Calcium (8.4-10.2) mg/dL Magnesium (1.6-2.3) mg/dL Total Bilirubin (0.2-1.3) mg/dL AST (14-36) U/L ALT (4-34) U/L Alkaline Phosphatase (38-126) U/L NT-Pro-B Natriuret Pep 545 pg/mL Total Protein (6.3-8.2) g/dL Albumin (3.5-5.0) g/dL - Radiology Data Radiology results: report reviewed, image reviewed Two-view x-ray of the chest is obtained. Report reviewed in its entirety. Impression by Dr. Duke shows pulmonary interstitial infiltrates could relate interstitial fibrosis and interstitial pneumonia that has progressed compared to recent exam. Mild heart failure as possible in view of the small pleural effusions. Ultrasound of the venous Doppler duplex of the left lower extremity was obta ined. Report was reviewed in its entirety. Impression by Dr. Duke shows no evidence of deep vein thrombosis in the left leg. Disposition Clinical Impression: Lower extremity edema Disposition: HOME SELF-CARE Condition: Good Instructions (If sedation given, give patient instructions): Leg Edema (ED) Additional Instructions: Take medications as directed. Follow up through primary care physician for recheck this week. Return to the emergency department immediately for any new, worsening, or concerning symptoms. Prescriptions: Furosemide [Lasix] 20 mg PO DAILY #3 tab predniSONE 50 mg PO DAILY #5 tablet Is patient prescribed a controlled substance at d/c from ED?: No Referrals: Medhat Sykes DO [Primary Care Provider] - 1-2 days Time of Disposition: 21:49
--- NOTE | 2019-11-09 19:54 | XR ---
EXAMINATION TYPE: XR chest 2V DATE OF EXAM: 11/09/2019 COMPARISON: 09/26/2019 HISTORY: Lung crackles TECHNIQUE: 2 views FINDINGS: There is general coarse interstitial density throughout the lungs. There is no pulmonary co nsolidation. Heart size is within normal limits. There are no hilar masses. Thoracic aorta is atherom atous. There are small pleural effusions. IMPRESSION: Pulmonary interstitial infiltrates could relate to interstitial fibrosis and interstitial pneumonia that is progressed compared to recent exam. Mild heart failure is possible in view of the small pleural effusions.
[2019-11-09 20:01] LABS: ALT 19 U/L (4-34); AST 50 U/L (14-36); African American GFR (CKD) >90 (>60 ml/min/1.73 sqM); Albumin 3.5 g/dL (3.5-5.0); Alkaline Phosphatase 107 U/L (38-126); Anion Gap 9 mmol/L; Blood Urea Nitrogen 12 mg/dL (7-17); Calcium 8.7 mg/dL (8.4-10.2); Carbon Dioxide 24 mmol/L (22-30); Chloride 103 mmol/L (98-107); Glucose 98 mg/dL (74-99); Non-African American GFR(CKD) 84 (>60 ml/min/1.73 sqM); Sodium 136 mmol/L (137-145); Total Bilirubin 0.6 mg/dL (0.2-1.3); Total Protein 6.7 g/dL (6.3-8.2)
[2019-11-09 20:02] LABS: Potassium 5.1 mmol/L (3.5-5.1)
[2019-11-09 20:33] LABS: Anisocytosis Slight; Basophils # (A) 0.1 k/uL (0-0.2); Basophils % (A) 1 %; Eosinophils # (A) 0.2 k/uL (0-0.7); Eosinophils % (A) 2 %; HCT 37.6 % (34.0-46.0); HGB 11.2 gm/dL (11.4-16.0); Hypochromasia Marked; Lymphocytes % (A) 19 %; MCH 26.6 pg (25.0-35.0); MCHC 29.7 g/dL (31.0-37.0); Mean Platelet Volume 9.5; Monocytes # (A) 0.9 k/uL (0-1.0); Monocytes % (A) 8 %; Neutrophils # (A) 7.3 k/uL (1.3-7.7); Neutrophils % (A) 68 %; Platelet Count 406 k/uL (150-450); RDW 17.6 % (11.5-15.5); WBC 10.8 k/uL (3.8-10.6)
[2019-11-09 20:35] LABS: MCV 89.5 fL (80.0-100.0)
--- NOTE | 2019-11-09 20:37 | US ---
EXAMINATION TYPE: US venous doppler duplex LE LT DATE OF EXAM: 11/09/2019 7:31 PM COMPARISON: NONE CLINICAL HISTORY: Left leg swelling. Left leg swelling SIDE PERFORMED: Left TECHNIQUE: The lower extremity deep venous system is examined utilizing real time linear array sonog [place] with graded compression, doppler sonography and color-flow sonography. VESSELS IMAGED: External Iliac Vein (EIV) Common Femoral Vein Deep Femoral Vein Greater Saphenous Vein * Femoral Vein Popliteal Vein Small Saphenous Vein * Proximal Calf Veins (* superficial vessels) Left Leg: Negative for DVT IMPRESSION: No evidence of deep vein thrombosis in the left leg.
[2019-11-09 20:40] LABS: Partial Thromboplastin Time 25.9 sec (22.0-30.0); Prothrombin Time 10.7 sec (9.0-12.0)
[2019-11-09 21:11] VITALS: BP 138/64; PULSE 84; RESP 20
== END 2019-11-09 21:56 | disposition home or self-care (01) ==
LOC: EC 18:34
DX: R60.0 Localized edema (principal); J90 Pleural effusion, not elsewhere classified; F41.9 Anxiety disorder, unspecified; J44.9 Chronic obstructive pulmonary disease, unspecified; I10 Essential (primary) hypertension; Z79.899 Other long term (current) drug therapy; Z88.5 Allergy status to narcotic agent; Z88.0 Allergy status to penicillin; Z88.1 Allergy status to other antibiotic agents; Z87.891 Personal history of nicotine dependence; Z86.73 Personal history of transient ischemic attack (TIA), and cerebral infarction without residual deficits
CPT/HCPCS: 36415; 71046; 80053; 83735; 83880; 85025; 85610; 85730; 99284

== ENCOUNTER → 2019-12-30 | Day surgery (SDC) | payer MEDICARE ==
[2019-12-28 10:07] VITALS: BMI 23.0
[~2019-12-30] MED LIST: ALPRAZolam 0.25 MG TAB PO PRN; ALPRAZolam 0.5 MG TAB PO PRN; ASPIRIN 325 MG TAB PO STA; ASPIRIN 81 MG PO SCH; ATORVASTATIN 40 MG TAB PO SCH; ATORVASTATIN 80 MG TAB PO STA; FERROUS SULFATE 325 MG TAB PO SCH; HEPARIN SODIUM 1,000 UN/ML (10ML VL) ONE; IOPAMIDOL-370 125ML BTL INJ ONE; LIDOCAINE 1% INJ 10MG/ML (20 ML MDV) ONE; NITROGLYCERIN SL TABS 0.4 MG TAB SUBLINGUAL PRN; PANTOPRAZOLE 40 MG TABLET PO SCH; POTASSIUM CHLORIDE ER 10 MEQ TAB.ER.PRT PO SCH; RX INFO: IV CONTRAST WAS GIVEN 1 EACH MISC MISCELLANE PRN; SODIUM CHLORIDE 0.9% 1,000 ML IV ONE; SODIUM CHLORIDE 0.9% 1,000 ML IV SCH; SODIUM CHLORIDE 0.9% 1,000 ML in EMPTY BAG 1 BAG IV ONE; SYMBICORT 80-4.5 MCG INHALER INHALATION SCH; VERAPAMIL 2.5 MG/ML 2 ML AMP ONE; amLODIPine 5 MG TAB PO SCH; fentaNYL (PF) 50 MCG/ML 2 ML AMP IV ONE; fentaNYL (PF) 50 MCG/ML 2 ML AMP ONE
[2019-12-30 07:18] VITALS: RESP 18; TEMP 98.3
[2019-12-30 07:30] LABS: Anisocytosis Slight; Basophils # (A) 0.1 k/uL (0-0.2); Basophils % (A) 1 %; Eosinophils # (A) 0.2 k/uL (0-0.7); Eosinophils % (A) 2 %; HGB 13.1 gm/dL (11.4-16.0); Hypochromasia Moderate; Lymphocytes # (A) 2.1 k/uL (1.0-4.8); Lymphocytes % (A) 21 %; MCH 27.8 pg (25.0-35.0); MCHC 31.1 g/dL (31.0-37.0); MCV 89.4 fL (80.0-100.0); Mean Platelet Volume 7.7; Monocytes # (A) 0.5 k/uL (0-1.0); Monocytes % (A) 5 %; Neutrophils # (A) 7.1 k/uL (1.3-7.7); Neutrophils % (A) 70 %; Platelet Count 294 k/uL (150-450); RDW 18.4 % (11.5-15.5); WBC 10.2 k/uL (3.8-10.6)
[2019-12-30] MEDS: LIDOCAINE 1% INJ 10MG/ML (20 ML MDV) SQ ONE ×2 (07:43→07:55)
--- NOTE | 2019-12-30 09:30 | CC ---
CARDIAC CATHETERIZATION REPORT Mrs. Baca is a 74-year-old female with a known history of hypertension, hyperlipidemia, chronic tobacco use and peripheral disease who has been complaining of progressive symptoms of dyspnea on exertion. She underwent a myocardial perfusion imaging that revealed evidence of inducible ischemia. In view of that, recommendation regarding cardiac catheterization, the procedures, risks, and complication were discussed with the patient who is in full understanding and agreement. PROCEDURE: Patient was brought to general labor in the fasting semi-sedated state after receiving fentanyl and Benadryl and achieving moderate conscious sedated state. Using Xylocaine anesthesia and Seldinger technique, attempts to introduce a wire in the right radial artery were unsuccessful. At that point, a 6-Bolivian sheath was introduced in the right femoral artery. Selective right and left coronary angiography was performed using 6- Bolivian 4 bend right and left Barbie catheter, multiple views of the coronary artery including hemiaxial views were obtained. Following that, a 6-Bolivian tight pigtail catheter was introduced in the left ventricle and a 30-degree GARCIA view of the left ventricle was obtained. Following that, catheter and sheath were removed. Hemostasis was obtained with the with compression of the right groin. There was no immediate complication. Patient was returned to room in stable condition. There was no immediate complication. FINDINGS: FLUOROSCOPY: There was severe calcification involving all the coronary arteries as well as severe calcification of the mitral anulus. LEFT MAIN: This is a large-sized vessel, bifurcating into left circumflex, left anterior descending artery. Left main coronary artery has no evidence of high-grade stenosis. LEFT ANTERIOR DESCENDING ARTERY: This is a large-sized vessel, tapers down to the distal third, giving rise to a moderately-sized diagonal branch proximally. The left anterior descending artery is calcified, has a diffuse intimal disease of 30% to 40% without any evidence of high-grade stenosis. LEFT CIRCUMFLEX: This is a nondominant vessel, giving rise to a large obtuse marginal branch. The left circumflex has mild intimal disease of 20% to 30% without any evidence of high-grade stenosis. RIGHT CORONARY ARTERY: This is a large dominant vessel, bifurcating into PDA and posterolateral segment and branches. The right coronary artery has diffuse intimal disease throughout its course up to 30%. There is a plaque of 30% to 50% in the PLV. LEFT VENTRICULOGRAM: Left ventriculogram is performed in 30-degree GARCIA view and revealed normal left ventricular size and systolic function. Ejection fraction is 60%. There was arrhythmia-induced mitral regurgitation. Evidence of severe peripheral vascular disease was noted. HEMODYNAMICS: There was no gradient across the aortic valve. The left ventricular end- diastolic pressure was 12-14 mmHg. There was a significant gradient in the peripheral circulation. CONCLUSION: 1. Heavily calcified coronary arteries. 2. Mild triple-vessel coronary disease. 3. Normal left ventricular size and systolic function. 4. Peripheral vascular disease. RECOMMENDATION: In view of finding anatomy, I recommend continue medical therapy with aggressive coronary risk modifications being initiated. Those findings and recommendation were discussed with the patient and her family and they are in full understanding and agreement. MMODL / IJN: [id number] /
[2019-12-30 13:36] VITALS: BP 135/70; PULSE 82
== END | disposition home or self-care (01) ==
LOC: CATHCVL 06:44
PROVIDERS: ATTEND Internal Medicine Interventional Cardiology
DX: I25.10 Atherosclerotic heart disease of native coronary artery without angina pectoris (principal); I25.84 Coronary atherosclerosis due to calcified coronary lesion; I10 Essential (primary) hypertension; I34.0 Nonrheumatic mitral (valve) insufficiency; E78.2 Mixed hyperlipidemia; I73.9 Peripheral vascular disease, unspecified; Z99.81 Dependence on supplemental oxygen; Z86.73 Personal history of transient ischemic attack (TIA), and cerebral infarction without residual deficits; Z98.890 Other specified postprocedural states; F17.210 Nicotine dependence, cigarettes, uncomplicated; I48.0 Paroxysmal atrial fibrillation; I65.23 Occlusion and stenosis of bilateral carotid arteries; Z79.82 Long term (current) use of aspirin; Z79.899 Other long term (current) drug therapy
CPT/HCPCS: 93458; 84132; 85025; C1769 ×3; C1894 ×2; J2001; J3010; Q9967

== ENCOUNTER → 2020-02-02 | Outpatient (CLI) | payer MEDICARE ==
[2020-02-02 13:43] LABS: Anisocytosis Slight; Basophils # (A) 0.1 k/uL (0-0.2); Basophils % (A) 1 %; Eosinophils # (A) 0.1 k/uL (0-0.7); Eosinophils % (A) 2 %; HGB 14.3 gm/dL (11.4-16.0); Lymphocytes # (A) 2.2 k/uL (1.0-4.8); Lymphocytes % (A) 24 %; MCHC 31.8 g/dL (31.0-37.0); MCV 88.1 fL (80.0-100.0); Mean Platelet Volume 7.8; Monocytes # (A) 0.5 k/uL (0-1.0); Monocytes % (A) 5 %; Neutrophils # (A) 6.2 k/uL (1.3-7.7); Neutrophils % (A) 67 %; Platelet Count 253 k/uL (150-450); RBC 5.11 m/uL (3.80-5.40); RDW 17.3 % (11.5-15.5); WBC 9.2 k/uL (3.8-10.6)
[2020-02-02 14:11] LABS: Potassium 3.9 mmol/L (3.5-5.1)
== END | disposition home or self-care (01) ==
LOC: LABPAT 13:05
PROVIDERS: ATTEND Surgery
DX: Z01.818 Encounter for other preprocedural examination (principal); I65.22 Occlusion and stenosis of left carotid artery
CPT/HCPCS: 36415; 80051; 82565; 84520; 85025

== ENCOUNTER 2020-02-04 05:57 | Inpatient (IN) | payer MEDICARE ==
[2020-02-02 11:10] VITALS: BMI 22.3
[~2020-02-04 05:57] MED LIST changes: -ALPRAZolam 0.25 MG TAB PO PRN; -ALPRAZolam 0.5 MG TAB PO PRN; -ASPIRIN 325 MG TAB PO STA; -ASPIRIN 81 MG PO SCH; -ATORVASTATIN 40 MG TAB PO SCH; -ATORVASTATIN 80 MG TAB PO STA; +DEXAMETHASONE SOD PHOSPHATE 4 MG/ML 1 ML VIAL IV ONE; -FERROUS SULFATE 325 MG TAB PO SCH; -HEPARIN SODIUM 1,000 UN/ML (10ML VL) ONE; +HYDROmorphone 0.5 MG/0.5 ML SYRINGE IVP PRN; -IOPAMIDOL-370 125ML BTL INJ ONE; +LACTATED RINGERS 1,000 ML IV SCH; -LIDOCAINE 1% INJ 10MG/ML (20 ML MDV) ONE; -NITROGLYCERIN SL TABS 0.4 MG TAB SUBLINGUAL PRN; +ONDANSETRON 4 MG/2 ML VIAL IVP ONE; -PANTOPRAZOLE 40 MG TABLET PO SCH; -POTASSIUM CHLORIDE ER 10 MEQ TAB.ER.PRT PO SCH; -RX INFO: IV CONTRAST WAS GIVEN 1 EACH MISC MISCELLANE PRN; -SODIUM CHLORIDE 0.9% 1,000 ML IV ONE; -SODIUM CHLORIDE 0.9% 1,000 ML IV SCH; -SODIUM CHLORIDE 0.9% 1,000 ML in EMPTY BAG 1 BAG IV ONE; -SYMBICORT 80-4.5 MCG INHALER INHALATION SCH; -VERAPAMIL 2.5 MG/ML 2 ML AMP ONE; -amLODIPine 5 MG TAB PO SCH; -fentaNYL (PF) 50 MCG/ML 2 ML AMP IV ONE; -fentaNYL (PF) 50 MCG/ML 2 ML AMP ONE
[2020-02-04] MEDS ORDERED: LIDOCAINE 1% (10MG/ML) FOR IV START INTRADERMA ONE (06:39)
[2020-02-04] MEDS ORDERED: NITROGLYCERIN-D5W PMX 50 MG in DEXTROSE/WATER 1 250ML.BAG IV SCH ×2 (07:00→07:30)
[2020-02-04] MEDS ORDERED: NEOSTIGMINE 1 MG/ML 10 ML VIAL ONE (07:33)
[2020-02-04] MEDS ORDERED: ePHEDrine SULFATE/0.9% NACL/PF 50 MG/5 ML SYRINGE IV ONE (07:33)
[2020-02-04] MEDS ORDERED: ROCURONIUM 10 MG/ML (10 ML VIAL) IV ONE (07:33)
[2020-02-04] MEDS ORDERED: GLYCOPYRROLATE 0.2 MG/ML 2 ML VIAL ONE (07:33)
[2020-02-04] MEDS ORDERED: SUCCINYLCHOLINE CHLORIDE 100 MG/5 ML SYR IV ONE (07:33)
[2020-02-04] MEDS ORDERED: PHENYLEPHRINE-0.9% NACL SYG 1 MG/10 ML SYRINGE ONE (07:33)
[2020-02-04] MEDS ORDERED: NITROGLYCERIN-D5W PMX 50 MG/250 ML BOTTLE IV ONE (07:33)
[2020-02-04] MEDS ORDERED: fentaNYL (PF) 50 MCG/ML 2 ML AMP ONE (07:33)
[2020-02-04] MEDS ORDERED: LIDOCAINE 1% INJ 10MG/ML (20 ML MDV) ONE (07:33)
[2020-02-04] MEDS ORDERED: HEPARIN SODIUM,PORCINE 10,000 UNIT/ML 1 ML VIAL ONE (07:33)
[2020-02-04] MEDS ORDERED: PROPOFOL 10 MG/ML 20 ML VIAL IV ONE (07:33)
--- NOTE | 2020-02-04 07:50 | P.PN ---
Progress Note - Text Progress Note Date: 02/04/20 The patient was seen and examined in the preopertaive area. I was notified at that time there would be no availability to do a cervical block with monitored anesthesia care. that the only way surgery. I had a long discussion with the patient guarding this and she is seemingly understanding and willing to proceed as such. We did talk about risks including cardiac and respiratory events as well as a with the surgery including stroke. She again is willing to go forth with the procedure as planned at this time. We also discussed her CODE STATUS, she would like to remain no code following the procedure. We did discuss that after 24 hours we can change the code back to no code. Again she understood this and was willing to proceed as such.
[2020-02-04] MEDS ORDERED: LIDOCAINE 1% INJ 10MG/ML (20 ML MDV) SQ ONE (09:21)
[2020-02-04] MEDS ORDERED: LACTATED RINGERS 1,000 ML IV ONE (09:57)
--- NOTE | 2020-02-04 10:07 | P.OP ---
Date of Procedure: 02/04/20 Description of Procedure: Preoperative Diagnosis: [Symptomatic left] Internal carotid artery stenosis Postoperative Diagnosis: Same Procedure: [Left] carotid endarterectomy with patch angioplasty Anesthesia: GET Surgeon: Denae Hassan DO Estimated Blood Loss (ml): [75 mL] IV Fluids: [1000 cc] Urine Output: [100 mL] Specimen: [Left cervical lymph node, left carotid plaque] Condition: stable Disposition: PACU Findings and indications: [The patient is a 74-year-old female who previously had issues with right-sided weakness of the found to have high-grade left internal carotid artery stenosis she underwent workup and evaluation for cardiac clearances as well as initially a GI clearance due to recurrent GI bleeding. There is currently unable to perform any colonoscopy beyond a stricture, but she has not had any issues with further bleeding therefore she was cleared by her primary care to undergo the procedure. She's also cleared by her recycle coordinator as well as process excellence manager. Risks and benefits were discussed with the patient including but not limited to stroke, cardiac event, pulmonary issue, bleeding and infection. She seemingly understood and was willing to proceed as such] Procedure in detail: After written informed consent was obtained the patient all risks benefits and competitions were described the patient is brought to the operative suite and laid in a supine position. The area of the neck was prepped and draped in usual sterile fashion after appropriate anesthetic was performed per the anesthesiologist. A timeout was performed in normal fashion antibiotics were administered prior to incision. An oblique incision was then created just anterior to the sternocleidomastoid musculature with a 10 blade scalpel and dissection was carried down to the carotid sheath. The carotid sheath was then entered after facial vein was located and suture ligated in normal fashion. The patient was heparinized as further dissection was carried out. ACT is were followed The common carotid, internal carotid, external carotid and superior thyroid arteries were located and dissected free in a meticulous fashion circumferentially and controlled with vessel loops. Attention was then placed to locating the vagus nerve as well as hypoglossal nerve which were both spared. Once ACT was appropriate, the proximal and distal aspects of the dissection were then controlled with vascular clamps. Arteriotomy was then created with 11 blade scalpel and extended with Law Alarcon scissors. Utilizing pressure tubing stump pressures were obtained and were 58-60. No shunt was required. An endarterectomy was then performed with a [place] elevator. The plaque was transected proximally and then feathered at the distal aspect of the internal carotid artery and removed. The area was copiously irrigated with heparinized saline and all free debris was removed. There was some redundancy to the distal intima. It was tacked in place with 7-0 Prolene. The distal flap was tacked into place with sutures of 7-0 Prolene. A 0.8 x 8 cm bovine pericardial patch was then chosen and patch angioplasty was performed with 6-0 Prolene suture in a running fashion. Prior to last sutures being placed the inflow was released flushing any free debris out of the patch. This was reclamped and the internal carotid artery was released revealing good brisk flow and was once again reclamped. The external carotid and superior thyroid artery were then released followed by the common carotid artery to allow any free debris to be flushed into the external system. Final sutures were placed and secured. Internal carotid artery control was then released. Good pulsatile flow was noted through the patch and a Doppler was utilized demonstrating good brisk flow into the internal, external carotid arteries without any signs of obstruction. Hemostasis was obtained. Surgicel was placed. A 10-Belarusian KERMIT drain was then placed in normal fashion and secured with 3-0 nylon suture. The incision was then closed in a multilayer fashion after hemostasis was assured. The skin was then cleansed and dressings were placed. Patient tolerated the procedure well and at the conclusion of the procedure was moving all 4 extremities. Patient was then sent to PACU for recovery.
[2020-02-04] MEDS ORDERED: BENZOCAINE/MENTHOL LOZENG 1 EACH LOZENGE MUCOUS MEM PRN (10:08)
[2020-02-04] MEDS ORDERED: ACETAMINOPHEN TAB 325 MG TAB PO PRN (10:08)
[2020-02-04] MEDS ORDERED: MAG HYDROX/AL HYDROX/SIMETH 30 ML CUP PO PRN (10:08)
[2020-02-04] MEDS ORDERED: TRIMETHOBENZAMIDE 100 MG/ML 2 ML VIAL IM PRN (10:08)
[2020-02-04] MEDS ORDERED: ALBUTEROL HFA INHALER INHALATION PRN (10:15)
[2020-02-04 11:24] LABS: Glucose,Whole Blood 178 mg/dL (75-99)
[2020-02-04] MEDS ORDERED: FLUMAZENIL 0.1 MG/ML 5 ML VIAL IVP ONE (11:30)
[2020-02-04 11:37] LABS: ABG Base Excess 5.5 mmol/L; ABG HCO3 34 mmol/L (21-25); ABG Oxygen Saturation 97.2 % (94-97); ABG PO2 108 mmHg (83-108); ABG TCO2 36 mmol/L (19-24)
[2020-02-04] MEDS: PHENYLEPHRINE 40 MG in SODIUM CHLORIDE 0.9% 250 ML IV SCH ×2 (11:39→12:32)
[2020-02-04 11:40] LABS: ABG PCO2 85 mmHg (35-45); Allen Test Performed? No
[2020-02-04] MEDS: LACTATED RINGERS 1,000 ML IV SCH ×2 (11:50→23:17)
--- NOTE | 2020-02-04 12:20 | P.PN ---
Progress Note - Text Progress Note Date: 02/04/20 Patient seen and examined now in the ICU. Remains lethargic. Does respond to verbal stimuli, is able to follow commands and move all 4 extremities with commands but is very slow to respond and groggy. ABG revealed elevated CO2, change and respiratory orders now to be on BiPAP. We'll continue to monitor. No evidence of ischemic stroke at this point. We will also order some postoperative labs
[2020-02-04] MEDS ORDERED: NALOXONE (MDV) 2 MG in SODIUM CHLORIDE 0.9% 250 ML IV SCH (12:30)
[2020-02-04 12:59] LABS: Anisocytosis Slight; Basophils % (A) 0 %; Eosinophils % (A) 0 %; HCT 39.5 % (34.0-46.0); HGB 12.5 gm/dL (11.4-16.0); Lymphocytes # (A) 0.5 k/uL (1.0-4.8); Lymphocytes % (A) 6 %; MCH 28.3 pg (25.0-35.0); MCHC 31.6 g/dL (31.0-37.0); MCV 89.6 fL (80.0-100.0); Mean Platelet Volume 8.2; Monocytes # (A) 0.1 k/uL (0-1.0); Monocytes % (A) 1 %; Neutrophils # (A) 7.9 k/uL (1.3-7.7); Neutrophils % (A) 92 %; Platelet Count 207 k/uL (150-450); RBC 4.41 m/uL (3.80-5.40); RDW 17.2 % (11.5-15.5); WBC 8.6 k/uL (3.8-10.6)
[2020-02-04 13:14] LABS: Calcium 8.5 mg/dL (8.4-10.2); Potassium 3.9 mmol/L (3.5-5.1)
--- NOTE | 2020-02-04 14:26 | P.CRDCN ---
History of Present Illness Consult date: 02/04/20 History of present illness: CHIEF COMPLAINT: Postop cardiac management HISTORY OF PRESENT ILLNESS: This is a 74-year old female with a past medical history significant for paroxysmal atrial fibrillation, COPD, hyperlipidemia, hypertension, coronary artery disease, recurrent GI bleeds, and carotid stenosis. Patient follows in the office with Dr Mcelroy. We have been asked to see the patient in consultation for postop cardiac management. Patient underwent left carotid endarterectomy with Dr. Hassan on 02/04/2020. Patient e dinesh this afternoon in the intensive care unit. She is lethargic at the time of examination. She is currently on a BiPAP. She denies chest pain or pressure. She denies shortness of breath. She is maintaining sinus mechanism on telemetry. She is bradycardic with a heart rate in the 50s. Blood pressure is running in the 140s. She is on a small dose of Omer-Synephrine. DIAGNOSTICS: Telemetry reveals sinus bradycardia Laboratory data: WBC 8.6. Hemoglobin 12.5. Platelet count 207. Sodium 139. Potassium 3.9. BUN 13. Creatinine 0.89. Current home cardiac medications include Norvasc 5 mg daily, Lasix 20 mg daily, Lipitor 40 mg daily, and aspirin 81 mg daily Patient had an echocardiogram completed in September 2019 revealing ejection fraction between 60 and 65%. Patient underwent cardiac catheterization on 12/30/2019 revealing mild triple vessel disease. Medical management was recommended. REVIEW OF SYSTEMS: At the time of my exam: CONSTITUTIONAL: Denies fever or chills. HEENT: Denies blurred vision, vision changes, or eye pain. Denies hemoptysis CARDIOVASCULAR: Denies chest pain, orthopnea, PND or palpitations RESPIRATORY: No shortness of breath. GASTROINTESTINAL: Denies abdominal pain. Denies nausea or vomiting. HEMATOLOGIC: Denies bleeding disorders. GENITOURINARY: Denies any blood in urine. SKIN: Denies pruitis. Denies rash. PHYSICAL EXAM: VITAL SIGNS: Reviewed. GENERAL: Well-developed in no acute distress. HEENT: Head is normocephalic. Pupils are equal, round. Sclerae anicteric. Mucous membranes of the mouth are moist. Neck supple. No JVD or thyromegaly LUNGS: Respirations even and unlabored. Lungs essentially clear to auscultation bilaterally. HEART: Regular rate and rhythm. S1 and S2 heard. ABDOMEN: Soft. Nondistended. Nontender. EXTREMITIES: Normal range of motion. No clubbing or cyanosis. Peripheral pulses intact. No lower extremity edema NEUROLOGIC: Lethargic. Awakens to verbal stimulation ASSESSMENT: Carotid stenosis, status post left carotid endarterectomy Paroxysmal atrial fibrillation, not on anticoagulation secondary to history of recurrent GI bleeding Hypertension Hyperlipidemia Nonobstructive coronary artery disease History of recurrent GI bleeding COPD History of CVA Nicotine dependence PLAN: Continue postoperative management per vascular surgery Continue Oemr-Synephrine to maintain systolic blood pressure between [address] Mo Urbina [facility] Patient placed on aspirin and Plavix per vascular surgery Patient not a candidate for anticoagulation for atrial fibrillation secondary to history of recurrent GI bleeding No need to repeat echocardiogram as this was just performed in September 2019 Further recommendations pending patient's course Nurse practitioner note has been reviewed by physician. Signing provider agrees with the documented findings, assessment, and plan of care. 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,diverticulosis,fluid around heart and lungs,swelling ameena lower legs, hx diverticulitis History of Any Multi-Drug Resistant Organisms: None Reported Past Surgical History: Adenoidectomy, Appendectomy, Heart Catheterization, Hysterectomy, Tonsillectomy Additional Past Surgical History / Comment(s): bowel resection r/t diverticulitis,cyst removed from Past Anesthesia/Blood Transfusion Reactions: No Reported Reaction Additional Past Anesthesia/Blood Transfusion Reaction / Comment(s): states "with bowel surgery some of my bowel got into my lungs with the surgery and I was very goofy and I was tied down to the bed". Unsure if had reaction to prior blood transfusion. Smoking Status: Current every day smoker - Past Family History Mother Family Medical History: Congestive Heart Failure (CHF), COPD Father History Unknown: Yes Family Medical History: Unable to Obtain Medications and Allergies Home Medications Medication Instructions Recorded Confirmed Type Atorvastatin [Lipitor] 40 mg PO HS #30 tab 09/16/19 02/02/20 Rx Pantoprazole [Protonix] 40 mg PO BID #30 tablet. 09/28/19 02/02/20 Rx ALPRAZolam [Xanax] 0.5 mg PO Q8H PRN 11/09/19 02/02/20 History Albuterol Sulfate [Ventolin HFA] 2 puff INHALATION RT-QID PRN 11/09/19 02/02/20 History Ferrous Sulfate [Iron] 325 mg PO TID 11/09/19 02/02/20 History Furosemide [Lasix] 20 mg PO DAILY #3 tab 11/09/19 02/02/20 Rx Ipratropium-Albuterol Nebulize 3 ml INHALATION RT-QID PRN 11/09/19 02/02/20 History [Duoneb 0.5 mg-3 mg/3 ml Soln] Aspirin 81 mg PO DAILY 12/28/19 02/02/20 History Cholecalciferol [Vitamin D3 (25 2,000 unit PO DAILY 02/02/20 02/02/20 History Mcg = 1000 Iu)] Mometasone/Formoterol [Dulera 100 2 puff PO BID 02/02/20 02/02/20 History Mcg-5 Mcg Inhaler] amLODIPine [Norvasc] 5 mg PO QAM 02/02/20 02/02/20 History Allergies Allergy/AdvReac Type Severity Reaction Status Date / Time codeine Allergy Nausea & Verified 02/04/20 06:47 Vomiting & Diarrhea naproxen Allergy Nausea & Verified 02/04/20 06:47 Vomiting amoxicillin AdvReac Nausea & Verified 02/04/20 06:47 Vomiting & Diarrhea ciprofloxacin [From Cipro] AdvReac Nausea & Verified 02/04/20 06:47 Vomiting & Diarrhea metronidazole [From Flagyl] AdvReac Nausea & Verified 02/04/20 06:47 Vomiting & Diarrhea Physical Exam Vitals: Vital Signs Temp Pulse Pulse Pulse Pulse Resp BP 02/04/20 12:45 72 14 105/65 02/04/20 12:15 70 12 100/48 02/04/20 12:03 13 02/04/20 12:00 71 17 92/48 02/04/20 11:45 79 15 02/04/20 11:30 97.6 F 78 14 02/04/20 11:20 02/04/20 11:00 82 16 02/04/20 10:45 83 16 02/04/20 10:30 84 17 02/04/20 10:15 82 16 02/04/20 09:59 97.6 F 86 14 02/04/20 07:10 80 02/04/20 06:23 98.1 F 82 94 16 BP BP BP BP Pulse Ox 02/04/20 12:45 98 02/04/20 12:15 96 02/04/20 12:03 02/04/20 12:00 95 02/04/20 11:45 96 02/04/20 11:30 96 02/04/20 11:20 79 L 02/04/20 11:00 117/58 146/49 95 02/04/20 10:45 116/53 142/48 94 L 02/04/20 10:30 114/56 136/50 94 L 02/04/20 10:15 128/58 158/48 94 L 02/04/20 09:59 131/60 146/35 94 L 02/04/20 07:10 139/62 02/04/20 06:23 141/62 160/66 92 L Intake and Output 02/03/20 02/04/20 02/04/20 22:59 06:59 14:59 Intake Total 200 1000 Output Total 195 Balance 200 805 Intake: IV 200 1000 Output: Urine 120 Estimated Blood Loss 75 Other: Weight 58.9 kg ABP, PAP, CO, CI - Last 8 Hours Arterial Blood Pressure 135/43 Arterial Blood Pressure 132/37 Arterial Blood Pressure 128/37 Arterial Blood Pressure 121/40 Arterial Blood Pressure 129/40 Results 02/04/20 12:40 02/04/20 12:40 CBC 02/04/20 Range/Units 12:40 WBC 8.6 (3.8-10.6) k/uL RBC 4.41 (3.80-5.40) m/uL Hgb 12.5 (11.4-16.0) gm/dL Hct 39.5 (34.0-46.0) % Plt Count 207 (150-450) k/uL Comprehensive Metabolic Panel 02/04/20 Range/Units 12:40 Sodium 139 (137-145) mmol/L Potassium 3.9 (3.5-5.1) mmol/L Chloride 103 (98-107) mmol/L Carbon Dioxide 33 H (22-30) mmol/L BUN 13 (7-17) mg/dL Creatinine 0.89 (0.52-1.04) mg/dL Glucose 150 H (74-99) mg/dL Calcium 8.5 (8.4-10.2) mg/dL Current Medications Generic Name Dose Route Start Last Admin Trade Name Freq PRN Reason Stop Dose Admin Acetaminophen 650 mg 02/04/20 10:08 Acetaminophen Tab 325 Mg Tab PO Q4HR PRN Pain Al Hydroxide/Mg Hydroxide 30 ml 02/04/20 10:08 Mag Hydrox/Al Hydrox/Simeth 30 Ml Cup PO Q6HR PRN Indigestion Albuterol/Ipratropium 3 ml 02/04/20 10:15 Ipratropium-Albuterol 3 Ml Neb INHALATION RT-QID PRN Shortness Of Breath Aspirin 81 mg 02/05/20 09:00 Aspirin 81 Mg PO DAILY BOOM Benzocaine/Menthol 1 each 02/04/20 10:08 Benzocaine/Menthol Lozeng 1 Each Lozenge MUCOUS MEM Q2HR PRN Sore Throat Budesonide/Formoterol Fumarate 2 puff 02/04/20 20:00 Symbicort 80-4.5 Mcg Inhaler INHALATION RT-BID [facility] Cholecalciferol 2,000 unit 02/05/20 09:00 Cholecalciferol 1,000 Unit Tab PO DAILY [facility] Clopidogrel Bisulfate 75 mg 02/05/20 09:00 Clopidogrel 75 Mg Tab PO DAILY BOOM Furosemide 20 mg 02/05/20 09:00 Furosemide 20 Mg Tab PO DAILY [facility] Heparin Sodium (Porcine) 5,000 unit 02/04/20 21:00 Heparin Sodium,Porcine 5,000 Unit/Ml 1 Ml Vial SQ Q12HR [facility] Hydromorphone HCl 0.5 mg 02/04/20 05:48 Hydromorphone 0.5 Mg/0.5 Ml Syringe IVP 02/05/20 05:49 Q5M PRN Pain Control Nitroglycerin/Dextrose 50 mg/ 250 mls @ 0 mls/hr 02/04/20 07:00 IV Solution IV .Q0M BOOM Protocol Titrate Nitroglycerin/Dextrose 50 mg/ 250 mls @ 0 mls/hr 02/04/20 07:30 IV Solution IV .Q0M [facility] Protocol Titrate Phenylephrine HCl 40 mg/ 254 mls @ 11.22 mls/hr 02/04/20 07:30 02/04/20 12:32 Sodium Chloride IV 0.5 mcg/kg/min .[id number] BOOM 11.22 mls/hr Administration Protocol 0.5 MCG/KG/MIN Lactated Ringer's 1,000 mls @ 75 mls/hr 02/04/20 10:15 02/04/20 11:50 Lactated Ringers IV 75 mls/hr .[id number] BOOM Administration Cefazolin Sodium 2 gm/ Sodium 50 mls @ 100 mls/hr 02/04/20 16:00 Chloride IVPB Q8HR BOOM Trimethobenzamide HCl 200 mg 02/04/20 10:08 Trimethobenzamide 100 Mg/Ml 2 Ml Vial IM Q4HR PRN Nausea And Vomiting Intake and Output 02/03/20 02/04/20 02/04/20 22:59 06:59 14:59 Intake Total 200 1000 Output Total 195 Balance 200 805 Intake: IV 200 1000 Output: Urine 120 Estimated Blood Loss 75 Other: Weight 58.9 kg 02/04/20 12:40 02/04/20 12:40
[2020-02-04] MEDS: IPRATROPIUM-ALBUTEROL 3 ML NEB INHALATION PRN (15:28)
[2020-02-04] MEDS ORDERED: ACETAMINOPHEN IV (For NPO) 1,000 MG in EMPTY BAG 1 BAG IVPB PRN (17:21)
--- NOTE | 2020-02-04 18:10 | CONS ---
CONSULTATION PULMONARY/CRITICAL CARE CONSULTATION: REASON FOR CONSULTATION: ICU management. This is a 74-year-old female who underwent a left carotid endarterectomy today. The surgeon was Dr. Hassan. The patient is doing reasonably well in the ICU. She came back from the operating room in the recovery area very lethargic and sleepy. The patient was placed on BiPAP at 10/5 and 40%. We also started a Narcan drip of 0.6 mg an hour for 6 hours, Omer-Synephrine a 0.5 mcg/kg per minute and saline at 75 mL an hour. She is much more awake. She apparently also received some Romazicon from the ICU nurse. Currently, the patient still is a bit sleepy and lethargic. CURRENT MEDICAL HISTORY: Carotid stenosis, left side, paroxysmal atrial fibrillation, history of recurrent GI bleed, hypertension, hyperlipidemia, nonobstructive coronary artery disease, COPD, CVA, nicotine dependence. ALLERGIES: INCLUDE AMOXICILLIN, CIPROFLOXACIN, CODEINE, FLAGYL, AND CARDAMOM. SURGICAL HISTORY: Includes previous bowel surgery. FAMILY HISTORY: Positive for mother with COPD. Father was healthy. SOCIAL HISTORY: Positive for ongoing tobacco use. No alcohol. No illicit drug use. HOME MEDICATIONS: Include amlodipine, nicotine patch, aspirin, Lipitor, losartan, Apixaban, and Protonix. REVIEW OF SYSTEMS: Cannot be obtained. The patient is too sleepy. PHYSICAL EXAMINATION: VITAL SIGNS: Current vital signs include a temperature of 97.6, heart rate 70, respiratory rate 14, blood pressure 139/56, mean 83 and saturations are 94-96 percent on the 40% BiPAP. Appears in no acute distress. Still very lethargic and sleepy. BiPAP mask in place. HEENT: Examination is grossly unremarkable. NECK: Supple. CARDIOVASCULAR: Examination reveals regular rhythm and rate. S1, S2 normal. Heart rate about 70 beats per minute. No murmur. Heart sounds are distant. LUNGS: Reveal mostly clear breath sounds. A few scattered rhonchi. No wheezes or crackles. ABDOMEN: Soft. Bowel sounds are heard. EXTREMITIES: Intact. No cyanosis, clubbing, or edema. SKIN: Without rash. NEUROLOGIC: Examination is nonfocal. LABORATORY DATA: Reviewed. White count 8.6, hemoglobin 12.5, hematocrit 39.5, platelet count 207,000, blood gases show PO2 108, pCO2 of 85, and a pH of 7.20. That was on 100%. That was before BiPAP. Sodium 139, potassium 3.9, chloride 103, CO2 33, anion gap is 3,BUN and creatinine were 13 and 0.89. Calcium 8.5. Microbiology is negative. IMAGING: No x-rays to report. MEDICATIONS: Medications are reviewed. Currently, the patient is on Tylenol, aspirin, Cepacol lozenges, Symbicort, Ancef, cholecalciferol, Plavix, Lasix, heparin, Dilaudid, DuoNeb, LR, magnesium hydroxide, nitroglycerin, Zofran, Omer-Synephrine, and Tigan. ASSESSMENT: 1. Postoperative day zero, status post left carotid endarterectomy. 2. History of paroxysmal atrial fibrillation. 3. History of carotid stenosis, left side. 4. Essential hypertension. 5. Hyperlipidemia. 6. Nonobstructive coronary artery disease. 7. History of recurrent gastrointestinal bleed. 8. History of chronic obstructive pulmonary disease secondary to chronic tobacco dependence. 9. History of cerebrovascular accident. PLAN: The patient's medications are appropriate. The patient is started on Narcan drip of 0.6 mg an hour for 4 to 6 hours. He is currently on Omer-Synephrine 0.5 mcg/kg per minute. Saline is running at 75 mL an hour. The patient is still a bit sleepy. Continue on BiPAP. No additional recommendations are made. We will continue to follow. Prognosis is guarded. MMODL / IJN: [id number] /
[2020-02-04] MEDS: HEPARIN SODIUM,PORCINE 5,000 UNIT/ML 1 ML VIAL SQ SCH (20:16)
[2020-02-04] MEDS: SYMBICORT 80-4.5 MCG INHALER INHALATION SCH (21:23)
[2020-02-05 04:02] LABS: Anisocytosis Slight; Basophils # (A) 0.1 k/uL (0-0.2); Basophils % (A) 0 %; Eosinophils % (A) 0 %; HCT 38.6 % (34.0-46.0); HGB 12.4 gm/dL (11.4-16.0); Hypochromasia Slight; Lymphocytes # (A) 2.3 k/uL (1.0-4.8); Lymphocytes % (A) 15 %; MCH 28.7 pg (25.0-35.0); MCHC 32.1 g/dL (31.0-37.0); MCV 89.5 fL (80.0-100.0); Mean Platelet Volume 8.1; Monocytes # (A) 0.8 k/uL (0-1.0); Monocytes % (A) 5 %; Neutrophils # (A) 11.4 k/uL (1.3-7.7); Neutrophils % (A) 77 %; Platelet Count 274 k/uL (150-450); RBC 4.31 m/uL (3.80-5.40); RDW 17.3 % (11.5-15.5); WBC 14.7 k/uL (3.8-10.6)
[2020-02-05 04:15] LABS: African American GFR (CKD) >90 (>60 ml/min/1.73 sqM); Anion Gap 0 mmol/L; Blood Urea Nitrogen 10 mg/dL (7-17); Calcium 8.8 mg/dL (8.4-10.2); Carbon Dioxide 34 mmol/L (22-30); Chloride 104 mmol/L (98-107); Glucose 134 mg/dL (74-99); Non-African American GFR(CKD) 89 (>60 ml/min/1.73 sqM); Potassium 3.7 mmol/L (3.5-5.1); Sodium 138 mmol/L (137-145)
[2020-02-05] MEDS ORDERED: POTASSIUM CHLORIDE ER 20 MEQ TAB.ER PO SCH (07:00)
[2020-02-05] MEDS: SYMBICORT 80-4.5 MCG INHALER INHALATION SCH (08:15)
[2020-02-05] MEDS: IPRATROPIUM-ALBUTEROL 3 ML NEB INHALATION PRN ×2 (08:15→11:30)
--- NOTE | 2020-02-05 08:44 | P.DS ---
Providers Date of admission: 02/04/20 05:57 Attending physician: Denae Hassan, Consults: 02/04/20 10:08 Consult Physician Routine Consulting Provider: Medhat Sykes Consult Reason/Comments: med management post cea Do you want consulting provider notified?: Yes 02/04/20 10:13 Consult Physician Routine Consulting Provider: Deshawn Hernandez Consult Reason/Comments: post op cea Do you want consulting provider notified?: Yes 02/04/20 10:14 Consult Physician Routine Consulting Provider: Randal Mcelroy Consult Reason/Comments: post op cea, card management Do you want consulting provider notified?: Yes Primary care physician: Medhat Sykes [facility] Course: Patient was seen and examined. Overall today she is doing much better. She is awake and alert and responsive. The A-line was discontinued due to nonfunctioning. She still remains on a small amount of Omer-Synephrine. She is tolerating a diet. Her pain is well controlled. She does not have any weakness or lateralizing symptoms. She had minimal output from her KERMIT drain. At this time we are continue to monitor her blood pressures. We will wean off the pressor support and see where she lies. I appreciate quality compliance consultant input and likely medication changes due to blood pressures. We will await their confirmation prior to discharge. But overall from a surgical standpoint she appears well. Increase activity she can tolerate it. Change dressing as needed. This is all discussed with her, she seemingly understands and is willing proceed as such Patient Condition at Discharge: Good Plan - Discharge Summary Discharge Rx Participant: No New Discharge Prescriptions: New Clopidogrel [Plavix] 75 mg PO DAILY #30 tablet No Action Atorvastatin [Lipitor] 40 mg PO HS #30 tab Pantoprazole [Protonix] 40 mg PO BID #30 tablet. ALPRAZolam [Xanax] 0.5 mg PO Q8H PRN PRN Reason: Anxiety Ferrous Sulfate [Iron] 325 mg PO TID Albuterol Sulfate [Ventolin HFA] 2 puff INHALATION RT-QID PRN PRN Reason: Shortness Of Breath Ipratropium-Albuterol Nebulize [Duoneb 0.5 mg-3 mg/3 ml Soln] 3 ml INHALATION RT-QID PRN PRN Reason: Shortness Of Breath Furosemide [Lasix] 20 mg PO DAILY #3 tab Aspirin 81 mg PO DAILY Mometasone/Formoterol [Dulera 100 Mcg-5 Mcg Inhaler] 2 puff PO BID amLODIPine [Norvasc] 5 mg PO QAM Cholecalciferol [Vitamin D3 (25 Mcg = 1000 Iu)] 2,000 unit PO DAILY Discharge Medication List Atorvastatin [Lipitor] 40 mg PO HS #30 tab 09/16/19 [Rx] Pantoprazole [Protonix] 40 mg PO BID #30 tablet. 09/28/19 [Rx] ALPRAZolam [Xanax] 0.5 mg PO Q8H PRN 11/09/19 [History] Albuterol Sulfate [Ventolin HFA] 2 puff INHALATION RT-QID PRN 11/09/19 [History] Ferrous Sulfate [Iron] 325 mg PO TID 11/09/19 [History] Furosemide [Lasix] 20 mg PO DAILY #3 tab 11/09/19 [Rx] Ipratropium-Albuterol Nebulize [Duoneb 0.5 mg-3 mg/3 ml Soln] 3 ml INHALATION RT-QID PRN 11/09/19 [History] Aspirin 81 mg PO DAILY 12/28/19 [History] Cholecalciferol [Vitamin D3 (25 Mcg = 1000 Iu)] 2,000 unit PO DAILY 02/02/20 [History] Mometasone/Formoterol [Dulera 100 Mcg-5 Mcg Inhaler] 2 puff PO BID 02/02/20 [History] amLODIPine [Norvasc] 5 mg PO QAM 02/02/20 [History] Clopidogrel [Plavix] 75 mg PO DAILY #30 tablet 02/05/20 [Rx] Follow up Appointment(s)/Referral(s): Denae Hassan DO [STAFF PHYSICIAN] - 2 Weeks Activity/Diet/Wound Care/Special Instructions: Activity as tolerated, no strenuous activity, resume a regular diet. May shower starting tomorrow. No soaking. Change dressing as needed Discharge Disposition: HOME SELF-CARE
[2020-02-05] MEDS ORDERED: ASPIRIN 81 MG PO SCH (09:00)
[2020-02-05] MEDS ORDERED: FUROSEMIDE 20 MG TAB PO SCH (09:00)
[2020-02-05] MEDS: PHENYLEPHRINE 40 MG in SODIUM CHLORIDE 0.9% 250 ML IV SCH (09:57)
--- NOTE | 2020-02-05 10:12 | XR ---
EXAMINATION TYPE: XR chest 1V portable DATE OF EXAM: 02/05/2020 Comparison: 11/09/2019 Clinical History: 74-year-old female Increased O2 demand Findings: Heart mildly enlarged. Diffuse interstitial density now becoming more confluent in the inferior right upper lobe and right base. Hyperinflation. No sizable effusion. Impression: COPD with either superimposed developing interstitial pulmonary edema versus developing pneumonia.
[2020-02-05] MEDS: CHOLECALCIFEROL 1,000 UNIT TAB PO SCH (10:16)
[2020-02-05] MEDS: HEPARIN SODIUM,PORCINE 5,000 UNIT/ML 1 ML VIAL SQ SCH ×2 (10:16→20:53)
[2020-02-05] MEDS: CLOPIDOGREL 75 MG TAB PO SCH (10:16)
[2020-02-05] MEDS: NICOTINE 21MG/24HR PATCH TRANSDERM SCH (10:16)
[2020-02-05] MEDS: ASPIRIN 81 MG PO SCH (10:18)
[2020-02-05] MEDS: LACTATED RINGERS 1,000 ML IV SCH (10:44)
[2020-02-05] MEDS ORDERED: TERBUTALINE 1 MG/ML VIAL SQ ONE (11:09)
--- NOTE | 2020-02-05 11:16 | PN ---
PROGRESS NOTE PULMONARY/CRITICAL CARE PROGRESS NOTE: DATE OF SERVICE: February 05, 2020. This is a patient who is postop day #1 status post left carotid endarterectomy. Currently, she is having some issues with oxygenation. She is on 15 L high flow. She is getting saline at 75 mL an hour. She remains on Omer-Synephrine at 0.7 mcg/kg/minute. We are going to add a nicotine patch. A chest x-ray will be done. The patient will also have Pulmicort and formoterol added to her regimen in place of Symbicort and will add Solu-Medrol at 60 mg q.6 hours. Currently, she is not having major complaints. She does feel a bit more short of breath. Her saturations are in the mid 80s. She does have a history of carotid artery stenosis, paroxysmal atrial fibrillation, recurrent GI bleed, hypertension, hyperlipidemia, nonobstructive coronary artery disease, COPD, CVA, and nicotine dependence. PHYSICAL EXAMINATION: VITAL SIGNS: Current vital signs are reviewed. Temperature is 98.1, heart rate 72, respiratory rate 18, blood pressure 98/73, mean 81, and saturations are 91-92% on 15 L high flow. Appears in no acute distress. No audible wheezing, use of accessory muscles or conversational dyspnea. HEENT: Examination is grossly unremarkable. Nasal O2 in place. NECK: Supple. Full range of motion. No adenopathy. Neck veins are flat. CARDIOVASCULAR: Examination reveals regular rhythm and rate. Heart rate 72 beats per minute. S1, S2 normal. Heart sounds are distant. LUNGS: Reveal some coarse inspiratory and expiratory rhonchi. No wheezes. ABDOMEN: Soft. Bowel sounds are heard. EXTREMITIES: Intact. No cyanosis, clubbing, or edema. SKIN: Without rash. NEUROLOGIC: Examination is brief but nonfocal. LABS: Reviewed. White count 14.7, hemoglobin 12.4, hematocrit 38.6, platelet count 274,000. Sodium 138, potassium 3.7, chloride 104, CO2 34, anion gap is 0. BUN and creatinine were 10 and 0.65. Microbiology is currently negative. IMAGING: Chest x-ray done today shows chronic changes. There may be some increased density in the right upper lung. MEDICATIONS: Reviewed. She is currently on Tylenol, aspirin, Cepacol lozenges, Pulmicort, Ancef, vitamin D3, Plavix, formoterol, subcu heparin, DuoNeb, LR, Maalox, Solu-Medrol, nicotine patch, Zofran, Omer-Synephrine, and Tigan. ASSESSMENT: 1. Postoperative day #1, status post left carotid endarterectomy. 2. History of paroxysmal atrial fibrillation. 3. Worsening hypoxemia, possibly secondary to aspiration and developing right-sided pneumonia. 4. Carotid stenosis, left side. 5. Essential hypertension. 6. Hyperlipidemia. 7. Nonobstructive coronary artery disease. 8. History of recurrent gastrointestinal bleed. 9. History of chronic obstructive pulmonary disease secondary to heavy tobacco use and dependence. 10.History of cerebrovascular accident. PLAN: The patient's oxygen requirements have gone up. She may have aspirated yesterday when she was obtunded and lethargic. She is already on Ancef. Chest x-ray was done. It shows some changes in the right upper lobe. Nicotine patch was added at 21 mg. We DC'd the Symbicort in favor of Pulmicort and formoterol. We also placed her on Solu- Medrol 60 mg q.6 hours. Additional recommendations and suggestions are forthcoming. Prognosis is guarded. MMODL / IJN: [id number] /
[2020-02-05] MEDS: methylPREDNISolone SOD SUCCI 125 MG/2 ML VIAL IV SCH ×2 (12:05→18:33)
--- NOTE | 2020-02-05 12:15 | P.PN ---
Subjective Progress Note Date: 02/05/20 Principal diagnosis: Carotid disease This is a 74-year-old female patient with paroxysmal atrial fibrillation and hypertension and dyslipidemia who was diagnosed recently with left carotid disease and underwent left carotid endarterectomy on February 03. She was seen this morning. She continues to be on vasopressors to support the pressure. The only medication she is on which can lower her pressure is still Lasix which I'm going to DC. Beside that she is on dual antiplatelet therapy beach she is not on any statin. I'm going to add Lipitor with high intensity to the current medical regimen. Objective - Vital Signs Vital signs: Vital Signs Temp 98.1 F 02/05/20 08:00 Pulse 78 02/05/20 11:45 Resp 20 02/05/20 11:30 BP 140/49 02/05/20 11:30 Pulse Ox 89 L 02/05/20 11:30 Intake & Output 02/04/20 02/05/20 02/05/20 18:59 06:59 18:59 Intake Total 2147.183 1078.962 497.938 Output Total 235 735 465 Balance 1912.183 343.962 32.938 Weight 68.2 kg Intake: IV 2083.6 900 375 Lactated Ringers 1,000 ml 525 900 375 @ 75 mls/hr IV .[id number] BOOM Rx#:[id number] Naloxone (Mdv) 2 mg In 525 Sodium Chloride 0.9% 250 ml @ 0.6 MG/HR 75 mls/hr IV .Q3H20M BOOM Rx#: [id number] Phenylephrine 40 mg In 33.6 Sodium Chloride 0.9% 250 ml @ 0.5 MCG/KG/MIN 11.22 mls/hr IV .[id number] BOOM Rx#:[id number] Intake, IV Titration 63.583 178.962 122.938 Amount Phenylephrine 40 mg In 63.583 128.962 72.938 Sodium Chloride 0.9% 250 ml @ 0.5 MCG/KG/MIN 11.22 mls/hr IV .[id number] BOOM Rx#:[id number] ceFAZolin 2 gm In Sodium 50 50 Chloride 0.9% 50 ml @ 100 mls/hr IVPB Q8HR BOOM Rx# :[id number] Output: Urine 160 735 465 Estimated Blood Loss 75 Other: Voiding Method Indwelling Catheter Indwelling Catheter Indwelling Catheter ABP, PAP, CO, CI - Last Documented Arterial Blood Pressure 115/72 - Constitutional General appearance: Present: no acute distress - Respiratory Respiratory: bilateral: CTA - Cardiovascular Heart sounds: normal: S1, S2 - Labs CBC & Chem 7: 02/05/20 03:45 02/05/20 03:45 Labs: Abnormal Lab Results - Last 24 Hours (Table) 02/04/20 02/04/20 02/05/20 Range/Units 12:40 12:40 03:45 WBC 14.7 H (3.8-10.6) k/uL RDW 17.2 H 17.3 H (11.5-15.5) % Neutrophils # 7.9 H 11.4 H (1.3-7.7) k/uL Lymphocytes # 0.5 L (1.0-4.8) k/uL Carbon Dioxide 33 H (22-30) mmol/L Glucose 150 H (74-99) mg/dL 02/05/20 Range/Units 03:45 WBC (3.8-10.6) k/uL RDW (11.5-15.5) % Neutrophils # (1.3-7.7) k/uL Lymphocytes # (1.0-4.8) k/uL Carbon Dioxide 34 H (22-30) mmol/L Glucose 134 H (74-99) mg/dL Assessment and Plan Assessment: Assessment #1 severe left carotid disease and status post left carotid endarterectomy #2 hypertension #3 dyslipidemia Plan #1 continue dual antiplatelet therapy #2 DC the Lasix #3 add statin #4 follow-up with the patient
[2020-02-05] MEDS: BUDESONIDE 1 MG/2 ML NEBU INHALATION SCH (19:43)
[2020-02-05] MEDS: FORMOTEROL FUMARATE 20 MCG/2 ML NEBU INHALATION SCH (19:43)
[2020-02-05] MEDS ORDERED: ATORVASTATIN 80 MG TAB PO SCH (21:00)
[2020-02-06] MEDS: methylPREDNISolone SOD SUCCI 125 MG/2 ML VIAL IV SCH ×3 (01:20→11:37)
[2020-02-06] MEDS: LACTATED RINGERS 1,000 ML IV SCH (03:06)
[2020-02-06 04:19] LABS: Anisocytosis Slight; Basophils % (A) 0 %; Eosinophils % (A) 0 %; HCT 35.4 % (34.0-46.0); HGB 11.3 gm/dL (11.4-16.0); Hypochromasia Slight; Lymphocytes # (A) 0.8 k/uL (1.0-4.8); Lymphocytes % (A) 9 %; MCH 28.5 pg (25.0-35.0); MCHC 31.9 g/dL (31.0-37.0); MCV 89.2 fL (80.0-100.0); Monocytes # (A) 0.1 k/uL (0-1.0); Monocytes % (A) 1 %; Neutrophils # (A) 7.2 k/uL (1.3-7.7); Neutrophils % (A) 89 %; Platelet Count 195 k/uL (150-450); RBC 3.96 m/uL (3.80-5.40); RDW 17.3 % (11.5-15.5); WBC 8.1 k/uL (3.8-10.6)
[2020-02-06 04:23] VITALS: TEMP 98.1
[2020-02-06 04:34] LABS: African American GFR (CKD) >90 (>60 ml/min/1.73 sqM); Anion Gap 4 mmol/L; Blood Urea Nitrogen 8 mg/dL (7-17); Calcium 8.8 mg/dL (8.4-10.2); Carbon Dioxide 32 mmol/L (22-30); Chloride 104 mmol/L (98-107); Glucose 150 mg/dL (74-99); Non-African American GFR(CKD) >90 (>60 ml/min/1.73 sqM); Potassium 3.7 mmol/L (3.5-5.1); Sodium 140 mmol/L (137-145)
[2020-02-06] MEDS ORDERED: POTASSIUM CHLORIDE ER 20 MEQ TAB.ER PO SCH (05:00)
--- NOTE | 2020-02-06 07:14 | P.PN ---
Subjective Progress Note Date: 02/06/20 Principal diagnosis: Carotid disease This is a 74-year-old female patient with paroxysmal atrial fibrillation and hypertension and dyslipidemia who was diagnosed recently with left carotid disease and underwent left carotid endarterectomy on February 03. The patient was seen this morning. She is feeling overall good. She is hemodynamically stable. She is on dual antiplatelet therapy along with a statin. The patient can be transferred out of the ICU is okay from the surgical standpoint of view. Objective - Vital Signs Vital signs: Vital Signs Temp 98.1 F 02/06/20 04:00 Pulse 86 02/06/20 07:00 Resp 16 02/06/20 07:00 BP 147/61 02/06/20 07:00 Pulse Ox 93 L 02/06/20 07:00 Intake & Output 02/05/20 02/06/20 02/06/20 18:59 06:59 18:59 Intake Total 1127.938 560 10 Output Total 955 1575 125 Balance 172.938 -1015 -115 Weight 62.6 kg Intake: IV 705 120 10 Lactated Ringers 1,000 ml 705 120 10 @ 10 mls/hr IV .Q24H BOOM Rx#:[id number] Intake, IV Titration 172.938 50 Amount Phenylephrine 40 mg In 72.938 Sodium Chloride 0.9% 250 ml @ 0.5 MCG/KG/MIN 11.22 mls/hr IV .[id number] BOOM Rx#:[id number] ceFAZolin 2 gm In Sodium 100 50 Chloride 0.9% 50 ml @ 100 mls/hr IVPB Q8HR BOOM Rx# :[id number] Oral 250 390 Output: Urine 955 1575 125 Other: Voiding Method Indwelling Catheter Indwelling Catheter # Bowel Movements 1 ABP, PAP, CO, CI - Last Documented Arterial Blood Pressure 115/72 - Constitutional General appearance: Present: no acute distress - Respiratory Respiratory: bilateral: CTA - Cardiovascular Rhythm: regular Heart sounds: normal: S1, S2 - Labs CBC & Chem 7: 02/06/20 03:26 02/06/20 03:26 Labs: Abnormal Lab Results - Last 24 Hours (Table) 02/06/20 02/06/20 Range/Units 03:26 03:26 Hgb 11.3 L (11.4-16.0) gm/dL RDW 17.3 H (11.5-15.5) % Lymphocytes # 0.8 L (1.0-4.8) k/uL Carbon Dioxide 32 H (22-30) mmol/L Glucose 150 H (74-99) mg/dL Assessment and Plan Assessment: Assessment #1 severe left carotid disease and status post left carotid endarterectomy #2 hypertension #3 dyslipidemia Plan #1 continue dual antiplatelet therapy #2 the patient can be transferred out of the ICU
[2020-02-06] MEDS: BUDESONIDE 1 MG/2 ML NEBU INHALATION SCH (07:27)
[2020-02-06] MEDS: FORMOTEROL FUMARATE 20 MCG/2 ML NEBU INHALATION SCH (07:27)
[2020-02-06] MEDS: IPRATROPIUM-ALBUTEROL 3 ML NEB INHALATION PRN ×2 (07:27→11:34)
--- NOTE | 2020-02-06 07:40 | XR ---
EXAMINATION TYPE: XR chest 1V portable DATE OF EXAM: 02/06/2020 COMPARISON: Prior chest x-ray 02/05/2020 HISTORY: Shortness of breath TECHNIQUE: Single frontal view of the chest is obtained. FINDINGS: Interstitium is increased. There is no pneumothorax. Lung hensley and costophrenic angles p ersists. Heart size is stable. Aorta is dense. IMPRESSION: There may be interstitial edema, pleural effusions. Suspect some improvement in aeration , volume status as compared to prior exam.
[2020-02-06] MEDS: ASPIRIN 81 MG PO SCH (08:54)
[2020-02-06] MEDS: CLOPIDOGREL 75 MG TAB PO SCH (08:54)
[2020-02-06] MEDS: CHOLECALCIFEROL 1,000 UNIT TAB PO SCH (08:54)
[2020-02-06] MEDS: HEPARIN SODIUM,PORCINE 5,000 UNIT/ML 1 ML VIAL SQ SCH (08:54)
[2020-02-06] MEDS: NICOTINE 21MG/24HR PATCH TRANSDERM SCH (08:55)
[2020-02-06] MEDS ORDERED: PANTOPRAZOLE 40 MG TABLET PO SCH (09:00)
[2020-02-06] MEDS ORDERED: amLODIPine 10 MG TAB PO SCH (09:30)
[2020-02-06] MEDS ORDERED: amLODIPine 5 MG TAB PO STA (09:48)
[2020-02-06] MEDS ORDERED: MECLIZINE 12.5 MG TAB PO STA (11:02)
--- NOTE | 2020-02-06 11:27 | P.PN ---
Subjective Progress Note Date: 02/06/20 Principal diagnosis: Carotid stenosis, status post left carotid endarterectomy. Postoperative day #2 The patient is seen today 02/06/2020 in follow-up in the intensive care unit. She is awake and alert in no acute distress. Currently sitting up in a chair at the bedside. She is on 4 L/m per nasal cannula to maintain O2 saturations in the 90s. This is postoperative day #2 over left carotid endarterectomy. No neurologic deficits. She is anxious to go home. No shortness of breath, cough or congestion. Chest x-ray reveals improved aeration compared to previous. White count 8.1. Hemoglobin 11.3. Sodium 140. Potassium 3.7. Creatinine 0.59. She has no current IV fluids. Off the Omer-Synephrine. Objective - Vital Signs Vital signs: Vital Signs Temp 98.1 F 02/06/20 08:00 Pulse 85 02/06/20 10:00 Resp 29 H 02/06/20 10:00 BP 149/66 02/06/20 10:00 Pulse Ox 94 L 02/06/20 10:00 Intake & Output 02/05/20 02/06/20 02/06/20 18:59 06:59 18:59 Intake Total 1127.938 560 20 Output Total 955 1575 335 Balance 172.938 -1015 -315 Weight 62.6 kg Intake: IV 705 120 20 Lactated Ringers 1,000 ml 705 120 20 @ 10 mls/hr IV .Q24H BOOM Rx#:[id number] Intake, IV Titration 172.938 50 Amount Phenylephrine 40 mg In 72.938 Sodium Chloride 0.9% 250 ml @ 0.5 MCG/KG/MIN 11.22 mls/hr IV .[id number] BOOM Rx#:[id number] ceFAZolin 2 gm In Sodium 100 50 Chloride 0.9% 50 ml @ 100 mls/hr IVPB Q8HR BOOM Rx# :[id number] Oral 250 390 Output: Urine 955 1575 335 Other: Voiding Method Indwelling Catheter Indwelling Catheter Indwelling Catheter # Bowel Movements 1 ABP, PAP, CO, CI - Last Documented Arterial Blood Pressure 115/72 - Exam GENERAL EXAM: Alert, active, pleasant 74-year-old female patient, up in a chair at the bedside, on 4 L nasal cannula, comfortable in no apparent distress. HEAD: Normocephalic. EYES: Normal reaction of pupils, equal size. NOSE: Clear with pink turbinates. THROAT: Seen to left neck dry and intact. No erythema or exudates. NECK: No masses, no JVD. CHEST: No chest wall deformity. LUNGS: Equal air entry with few scattered rhonchi of the right lung. Diminished. CVS: S1 and S2 normal with no audible murmur, regular rhythm. ABDOMEN: No hepatosplenomegaly, normal bowel sounds, no guarding or rigidity. SPINE: No scoliosis or deformity SKIN: No rashes CENTRAL NERVOUS SYSTEM: No focal deficits, tone is normal in all 4 extremities. EXTREMITIES: There is no peripheral edema. No clubbing, no cyanosis. Peripheral pulses are intact. - Labs CBC & Chem 7: 02/06/20 03:26 02/06/20 03:26 Labs: Abnormal Lab Results - Last 24 Hours (Table) 02/06/20 02/06/20 Range/Units 03:26 03:26 Hgb 11.3 L (11.4-16.0) gm/dL RDW 17.3 H (11.5-15.5) % Lymphocytes # 0.8 L (1.0-4.8) k/uL Carbon Dioxide 32 H (22-30) mmol/L Glucose 150 H (74-99) mg/dL Assessment and Plan Assessment: 1 Carotid stenosis, status post left carotid endarterectomy. Postoperative day #2. 2 Acute on chronic hypoxemia secondary to possible aspiration with right-sided pneumonia. Not an expected outcome of surgery. Improved. 3 Chronic obstructive pulmonary disease secondary to significant chronic tobacco dependence 4 Hypertension 5 Hyperlipidemia 6 History of paroxysmal atrial fibrillation 7 Nonobstructive coronary artery disease 8 History of GI bleed. 9 History of CVA Plan: The patient was seen and evaluated by Dr. Garcia Cleared for discharge from the pulmonary sample Continue home oxygen, home updraft treatment Educated regarding the importance of complete smoking cessation Educated regarding the importance of continued use the incentive spirometer I, the cosigning physician, performed a history & physical examination of the patient. Lungs sounds with few scattered rhonchi of the right lung. Maintaining good O2 saturations in the 90s on 4 L/m per nasal cannula. I discussed the assessment and plan of care with my nurse practitioner, Malissa Shannan. I attest to the above note as dictated by her.
[2020-02-06 11:32] VITALS: BP 155/63; RESP 15
[2020-02-06 11:46] VITALS: PULSE 90
--- NOTE | 2020-02-06 12:21 | P.CONS ---
History of Present Illness - Reason for Consult hypoxia, COPD - History of Present Illness patient is a pleasant 74-year-old femaleadmitted for left carotid endarterectomy clinically doing well now. Postoperatively patient appeared to have aspiration pneumonia and COPD exacerbation.recorded high amount of oxygen 6 L. We are able to wean it off to 3 L saturating at 92% patient appears to have significant COPD does use oxygen on as-needed basis at home. Patient was evaluated by pulmonary and they cleared her for discharge. Patient will be discharged on clindamycin because of her multiple ALLERGIES for her aspiration pneumonia for 5 more days along with the systemic steroids. Review of Systems REVIEW OF SYSTEMS: CONSTITUTIONAL: No fever, no malaise, no fatigue. HEENT: No recent visual problems or hearing problems. Denied any sore throat. CARDIOVASCULAR: No chest pain, orthopnea, PND, no palpitations, no syncope. PULMONARY: No shortness of breath, no cough, no hemoptysis. GASTROINTESTINAL: No diarrhea, no nausea, no vomiting, no abdominal pain. NEUROLOGICAL: No headaches, no weakness, no numbness. HEMATOLOGICAL: Denies any bleeding or petechiae. GENITOURINARY: Denies any burning micturition, frequency, or urgency. MUSCULOSKELETAL/RHEUMATOLOGICAL: Denies any joint pain, swelling, or any muscle pain. ENDOCRINE: Denies any polyuria or polydipsia. The rest of the 14-point review of systems is negative. 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,diverticulosis,fluid around heart and lungs,swelling ameena lower legs, hx diverticulitis History of Any Multi-Drug Resistant Organisms: None Reported Past Surgical History: Adenoidectomy, Appendectomy, Heart Catheterization, Hysterectomy, Tonsillectomy Additional Past Surgical History / Comment(s): bowel resection r/t diverticulitis,cyst removed from Past Anesthesia/Blood Transfusion Reactions: No Reported Reaction Additional Past Anesthesia/Blood Transfusion Reaction / Comm: states "with bowel surgery some of my bowel got into my lungs with the surgery and I was very goofy and I was tied down to the bed". Unsure if had reaction to prior blood transfusion. Smoking Status: Current every day smoker - Past Family History Mother Family Medical History: Congestive Heart Failure (CHF), COPD Father History Unknown: Yes Family Medical History: Unable to Obtain Medications and Allergies Home Medications Medication Instructions Recorded Confirmed Type Atorvastatin [Lipitor] 40 mg PO HS #30 tab 09/16/19 02/02/20 Rx Pantoprazole [Protonix] 40 mg PO BID #30 tablet. 09/28/19 02/02/20 Rx ALPRAZolam [Xanax] 0.5 mg PO Q8H PRN 11/09/19 02/02/20 History Albuterol Sulfate [Ventolin HFA] 2 puff INHALATION RT-QID PRN 11/09/19 02/02/20 History Ferrous Sulfate [Iron] 325 mg PO TID 11/09/19 02/02/20 History Ipratropium-Albuterol Nebulize 3 ml INHALATION RT-QID PRN 11/09/19 02/02/20 History [Duoneb 0.5 mg-3 mg/3 ml Soln] Aspirin 81 mg PO DAILY 12/28/19 02/02/20 History Cholecalciferol [Vitamin D3 (25 2,000 unit PO DAILY 02/02/20 02/02/20 History Mcg = 1000 Iu)] Mometasone/Formoterol [Dulera 100 2 puff PO BID 02/02/20 02/02/20 History Mcg-5 Mcg Inhaler] amLODIPine [Norvasc] 5 mg PO QAM 02/02/20 02/02/20 History Clopidogrel [Plavix] 75 mg PO DAILY #30 tablet 02/05/20 Rx Clindamycin [Cleocin] 300 mg PO Q6H #20 cap 02/06/20 Rx predniSONE 10 mg PO DAILY #30 tab 02/06/20 Rx Allergies Allergy/AdvReac Type Severity Reaction Status Date / Time codeine Allergy Nausea & Verified 02/04/20 06:47 Vomiting & Diarrhea naproxen Allergy Nausea & Verified 02/04/20 06:47 Vomiting amoxicillin AdvReac Nausea & Verified 02/04/20 06:47 Vomiting & Diarrhea ciprofloxacin [From Cipro] AdvReac Nausea & Verified 02/04/20 06:47 Vomiting & Diarrhea metronidazole [From Flagyl] AdvReac Nausea & Verified 02/04/20 06:47 Vomiting & Diarrhea Physical Exam Vitals: Vital Signs Temp Pulse Resp BP Pulse Ox 02/06/20 11:45 90 02/06/20 11:42 15 02/06/20 11:34 93 02/06/20 11:00 97 15 155/63 92 L 02/06/20 10:00 85 29 H 149/66 94 L 02/06/20 09:00 96 19 162/66 91 L 02/06/20 08:13 29 H 02/06/20 08:00 98.1 F 92 23 167/63 93 L 02/06/20 07:51 88 02/06/20 07:41 87 02/06/20 07:38 87 02/06/20 07:27 84 02/06/20 07:00 86 16 147/61 93 L 02/06/20 06:00 89 22 162/61 92 L 02/06/20 05:00 101 H 22 134/54 93 L 02/06/20 04:00 98.1 F 92 16 144/60 98 02/06/20 03:00 85 12 151/63 99 02/06/20 02:00 85 15 146/53 95 02/06/20 01:00 85 16 153/58 96 02/06/20 00:00 98.3 F 98 24 142/55 95 02/05/20 23:23 89 18 96 02/05/20 23:00 92 16 135/58 96 02/05/20 22:00 89 21 168/80 95 02/05/20 21:00 94 17 113/64 94 L 02/05/20 20:00 98.3 F 89 20 157/74 94 L 02/05/20 19:52 80 18 02/05/20 19:43 85 18 02/05/20 19:00 87 20 145/57 88 L 02/05/20 18:00 93 19 138/86 87 L 02/05/20 17:00 89 22 142/60 88 L 02/05/20 16:00 98.5 F 89 18 149/80 88 L 02/05/20 15:00 94 17 150/60 86 L 02/05/20 14:00 90 19 135/66 87 L 02/05/20 13:00 82 20 107/46 87 L Intake and Output 02/05/20 02/06/20 02/06/20 22:59 06:59 14:59 Intake Total 685 130 270 Output Total 855 1015 335 Balance -170 -885 -65 Intake: IV 145 80 20 Lactated Ringers 1,000 ml 145 80 20 @ 10 mls/hr IV .Q24H BOOM Rx#:[id number] Intake, IV Titration 50 50 Amount ceFAZolin 2 gm In Sodium 50 50 Chloride 0.9% 50 ml @ 100 mls/hr IVPB Q8HR BOOM Rx# :[id number] Oral 490 250 Output: Urine 855 1015 335 Other: Voiding Method Indwelling Catheter Indwelling Catheter Indwelling Catheter # Bowel Movements 1 Weight 62.6 kg PHYSICAL EXAMINATION: GENERAL: The patient is alert and oriented x3, not in any acute distress. Well developed, well nourished. HEENT: Pupils are round and equally reacting to light. EOMI. No scleral icterus. No conjunctival pallor. Normocephalic, atraumatic. No pharyngeal erythema. No thyromegaly. CARDIOVASCULAR: S1 and S2 present. No murmurs, rubs, or gallops. PULMONARY: presented bilateral lung hensley ABDOMEN: Soft, nontender, nondistended, normoactive bowel sounds. No palpable organomegaly. MUSCULOSKELETAL: No joint swelling or deformity. EXTREMITIES: No cyanosis, clubbing, or pedal edema. NEUROLOGICAL: Gross neurological examination did not reveal any focal deficits. SKIN: No rashes. Results CBC & Chem 7: 02/06/20 03:26 02/06/20 03:26 Labs: Abnormal Lab Results - Last 24 Hours (Table) 02/06/20 02/06/20 Range/Units 03:26 03:26 Hgb 11.3 L (11.4-16.0) gm/dL RDW 17.3 H (11.5-15.5) % Lymphocytes # 0.8 L (1.0-4.8) k/uL Carbon Dioxide 32 H (22-30) mmol/L Glucose 150 H (74-99) mg/dL Assessment and Plan Plan: -acute hypoxic and hypercapnic respiratory failure secondary to COPD exacerbation and possible aspiration patient will be discharged on clindamycin and weaning dose of steroids -COPD without any acute examination - hypertension -Hyperlipidemia -History of proximal A. fib presently rate controlled -history of CVA in the past -Hyperlipidemia. continued nicotine use: Counseling was provided Her discharge medications were reviewed, reconciled and appropriate medications were prescribed patient is medically stable to be discharged patient was advised to quit smoking if she smokes patient may end up coming back with COPD exacerbation
[2020-02-07] MEDS ORDERED: amLODIPine 5 MG TAB PO SCH (09:00)
[2020-02-07] MEDS ORDERED: predniSONE 20 MG TAB PO SCH (09:00)
== END 2020-02-06 12:53 | disposition home or self-care (01) | DRG 37 ==
LOC: 2ORMAIN 05:57 → 2SICU 09:53
PROVIDERS: ADMIT Surgery; ATTEND Surgery
PROC: 07B20ZX Excision of Left Neck Lymphatic, Open Approach, Diagnostic (ICD-10-PCS; principal; 2020-02-04 07:30)
PROC: 03CL0ZZ Extirpation of Matter from Left Internal Carotid Artery, Open Approach (ICD-10-PCS; principal; 2020-02-04 07:30)
PROC: 03UL0KZ Supplement Left Internal Carotid Artery with Nonautologous Tissue Substitute, Open Approach (ICD-10-PCS; principal; 2020-02-04 07:30)
DX: I65.22 Occlusion and stenosis of left carotid artery (principal); J69.0 Pneumonitis due to inhalation of food and vomit; J96.02 Acute respiratory failure with hypercapnia; J96.01 Acute respiratory failure with hypoxia; J44.1 Chronic obstructive pulmonary disease with (acute) exacerbation; E78.5 Hyperlipidemia, unspecified; F17.200 Nicotine dependence, unspecified, uncomplicated; H54.61 Unqualified visual loss, right eye, normal vision left eye; I10 Essential (primary) hypertension; I25.10 Atherosclerotic heart disease of native coronary artery without angina pectoris; I48.0 Paroxysmal atrial fibrillation; Z79.899 Other long term (current) drug therapy; Z79.82 Long term (current) use of aspirin; Z79.51 Long term (current) use of inhaled steroids; Z79.02 Long term (current) use of antithrombotics/antiplatelets; Z82.5 Family history of asthma and other chronic lower respiratory diseases; Z82.49 Family history of ischemic heart disease and other diseases of the circulatory system; Z86.73 Personal history of transient ischemic attack (TIA), and cerebral infarction without residual deficits; Z90.710 Acquired absence of both cervix and uterus; Z88.1 Allergy status to other antibiotic agents; Z88.5 Allergy status to narcotic agent; Z88.8 Allergy status to other drugs, medicaments and biological substances; Z98.890 Other specified postprocedural states; Z90.49 Acquired absence of other specified parts of digestive tract; Z90.89 Acquired absence of other organs
CPT/HCPCS: 36415; 36600; 71045; 80048; 80051; 82565; 82805; 84520; 85025; 86850; 86900; 86901; 88304; 88305; 88311; 94640; 94660

== ENCOUNTER 2021-09-06 11:22 | Emergency (ER) | payer MEDICARE ==
[2021-09-06] MEDS ORDERED: methylPREDNISolone SOD SUCCI 125 MG/2 ML VIAL IV STA (11:37)
[2021-09-06] MEDS ORDERED: IPRATROPIUM 0.5 MG/2.5 ML NEBU INHALATION STA (11:37)
[2021-09-06] MEDS ORDERED: ALBUTEROL NEBULIZED 2.5 MG/3 ML INHALATION STA (11:37)
[2021-09-06 12:04] LABS: Anisocytosis Slight; Basophils # (A) 0.1 k/uL (0-0.2); Basophils % (A) 1 %; Eosinophils # (A) 0.1 k/uL (0-0.7); Eosinophils % (A) 1 %; HCT 29.9 % (34.0-46.0); HGB 8.6 gm/dL (11.4-16.0); Hypochromasia Marked; Lymphocytes # (A) 0.7 k/uL (1.0-4.8); Lymphocytes % (A) 10 %; MCH 27.7 pg (25.0-35.0); MCHC 28.8 g/dL (31.0-37.0); MCV 96.4 fL (80.0-100.0); Macrocytosis Slight; Mean Platelet Volume 8.2; Monocytes # (A) 0.3 k/uL (0-1.0); Monocytes % (A) 5 %; Neutrophils % (A) 82 %; Platelet Count 356 k/uL (150-450); RDW 17.5 % (11.5-15.5); WBC 7.3 k/uL (3.8-10.6)
[2021-09-06 12:25] LABS: Calcium 8.2 mg/dL (8.4-10.2); Magnesium 1.9 mg/dL (1.6-2.3); Potassium 4.4 mmol/L (3.5-5.1); Total Bilirubin 0.4 mg/dL (0.2-1.3); Total Protein 5.4 g/dL (6.3-8.2)
--- NOTE | 2021-09-06 12:33 | XR ---
EXAMINATION TYPE: XR chest 2V DATE OF EXAM: 09/06/2021 COMPARISON: Chest x-ray February 06, 2020 HISTORY: Difficulty in breathing. TECHNIQUE: Frontal and lateral views of the chest are obtained. FINDINGS: Background reticular increased markings becoming more prominent with additional right midl maria elena opacity and small right greater than left pleural effusions. The cardiac silhouette size is enla rged. The osseous structures are demineralized. IMPRESSION: Suspect CHF exacerbation on background chronic parenchymal fibrosis with increasing pleu ral effusions and interstitial edema noted.
--- NOTE | 2021-09-06 12:38 | CT ---
EXAMINATION TYPE: CT brain wo con DATE OF EXAM: 09/06/2021 COMPARISON: MRI dated 09/14/2019 HISTORY: Head trauma. Fall on Saturday or Saturday. Right sided facial bruise CT DLP: 1104.4 mGycm Automated exposure control for dose reduction was used. TECHNIQUE: CT scan of the brain is performed without IV contrast administration. FINDINGS: Brain volume loss changes, likely age-related. Bilateral cerebral white matter hypodensities, likely representing chronic microvascular ischemic changes. Suspected tiny bilateral cerebellar and right fr ontal subcortical chronic infarcts. Scattered arterial atherosclerotic calcifications. No acute intracranial hemorrhage. No gross acute cortical infarct. No midline shift, herniation or ve ntriculomegaly. Unremarkable basal cisterns, sella and CP angles. No gross space-occupying lesion, va sogenic edema or mass effect. Unremarkable orbits. Right frontal small scalp swelling/hematoma. Clear visualized paranasal sinuses. Opacified right inferior mastoid air cells. Osteopenia. IMPRESSION: No acute intracranial posttraumatic sequela or acute calvarial bone fracture. Small right frontal sca lp swelling/hematoma. Chronic and incidental findings as described above.
[2021-09-06 12:46] LABS: INR 0.9 (<1.2); Partial Thromboplastin Time 24.8 sec (22.0-30.0); Prothrombin Time 10.3 sec (9.0-12.0)
--- NOTE | 2021-09-06 12:48 | ED ---
General Adult HPI - General Source: patient, EMS, RN notes reviewed, old records reviewed Mode of arrival: EMS Limitations: no limitations <Balbir Pelayo - Last Filed: 09/06/21 14:13> <Emery Gomez - Last Filed: 09/06/21 15:32> - General Chief complaint: Shortness of Breath Stated complaint: SOB Time Seen by Provider: 09/06/21 11:27 - History of Present Illness Initial comments: 76-year-old female presenting for evaluation of increased cough and dyspnea. Patient has history of COPD and is oxygen dependent. She does report cough. She denies fever. She denies chest pain. Patient's has signs of obvious head and facial trauma. She states that she fell several days ago. No loss consciousness. She also reports bilateral lower extremity edema. (Balbir Pelayo) - Related Data Home Medications Medication Instructions Recorded Confirmed ALPRAZolam [Xanax] 0.5 mg PO Q8H PRN 11/09/19 09/06/21 Albuterol Sulfate [Ventolin HFA] 2 puff INHALATION RT-QID PRN 11/09/19 09/06/21 Ferrous Sulfate [Iron] 325 mg PO DAILY 11/09/19 09/06/21 Ipratropium-Albuterol Nebulize 3 ml INHALATION RT-QID 11/09/19 09/06/21 [Duoneb 0.5 mg-3 mg/3 ml Soln] Aspirin 81 mg PO DAILY 12/28/19 09/06/21 amLODIPine [Norvasc] 5 mg PO QAM 02/02/20 09/06/21 Acetaminophen Tab [Tylenol Tab] 500 mg PO Q6H PRN 09/06/21 09/06/21 Brimonidine Tartrate [Alphagan P 1 drop BOTH EYES BID 09/06/21 09/06/21 0.2% Ophth Soln] Cholecalciferol [Vitamin D3 (25 50 mcg PO DAILY 09/06/21 09/06/21 Mcg = 1000 Iu)] Dorzolamide-Timol 2.23%/0.68% 1 drop LEFT EYE BID 09/06/21 09/06/21 [Cosopt] Fluticasone/Umeclidin/Vilanter 1 puff INHALATION RT-DAILY 09/06/21 09/06/21 [Trelegy Ellipta 200-62.5-25] Furosemide [Lasix] 20 mg PO DAILY 09/06/21 09/06/21 Gabapentin [Neurontin] 100 mg PO BID 09/06/21 09/06/21 Latanoprost Ophth [Xalatan 0.005%] 1 drop LEFT EYE HS 09/06/21 09/06/21 Previous Rx's Medication Instructions Recorded Atorvastatin [Lipitor] 40 mg PO HS #30 tab 09/16/19 Pantoprazole [Protonix] 40 mg PO BID #30 tablet. 09/28/19 Clopidogrel [Plavix] 75 mg PO DAILY #30 tablet 02/05/20 Allergies Allergy/AdvReac Type Severity Reaction Status Date / Time codeine Allergy Nausea & Verified 09/06/21 13:02 Vomiting & Diarrhea naproxen Allergy Nausea & Verified 09/06/21 13:02 Vomiting amoxicillin AdvReac Nausea & Verified 09/06/21 13:02 Vomiting & Diarrhea ciprofloxacin [From Cipro] AdvReac Nausea & Verified 09/06/21 13:02 Vomiting & Diarrhea metronidazole [From Flagyl] AdvReac Nausea & Verified 09/06/21 13:02 Vomiting & Diarrhea Review of Systems ROS Other: All systems not noted in ROS Statement are negative. <Balbir Pelayo - Last Filed: 09/06/21 14:13> ROS Other: All systems not noted in ROS Statement are negative. <Emery Gomez - Last Filed: 09/06/21 15:32> ROS Statement: Those systems with pertinent positive or pertinent negative responses have been documented in the HPI. 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,diverticulosis,fluid around heart and lungs,swelling ameena lower legs, hx diverticulitis History of Any Multi-Drug Resistant Organisms: None Reported Past Surgical History: Adenoidectomy, Appendectomy, Heart Catheterization, Hysterectomy, Tonsillectomy Additional Past Surgical History / Comment(s): bowel resection r/t diverticulitis,cyst removed from Past Anesthesia/Blood Transfusion Reactions: No Reported Reaction Additional Past Anesthesia/Blood Transfusion Reaction / Comment(s): states "with bowel surgery some of my bowel got into my lungs with the surgery and I was very goofy and I was tied down to the bed". Unsure if had reaction to prior blood transfusion. Past Psychological History: Anxiety Smoking Status: Current every day smoker Past Alcohol Use History: None Reported Past Drug Use History: None Reported - Past Family History Mother Family Medical History: Congestive Heart Failure (CHF), COPD Father History Unknown: Yes Family Medical History: Unable to Obtain <Balbir Pelayo - Last Filed: 09/06/21 14:13> General Exam Limitations: no limitations General appearance: alert, in distress Head exam: Present: normocephalic, other (Right facial ecchymosis) Eye exam: Present: PERRL, periorbital swelling Neck exam: Present: normal inspection. Absent: tenderness, meningismus Respiratory exam: Present: respiratory distress, wheezes, decreased breath sounds Cardiovascular Exam: Present: regular rate, normal rhythm GI/Abdominal exam: Present: soft. Absent: distended, tenderness Extremities exam: Present: normal inspection, normal capillary refill. Absent: pedal edema Neurological exam: Present: alert. Absent: motor sensory deficit Skin exam: Present: warm, dry, intact. Absent: cyanosis, diaphoretic <Balbir Pelayo - Last Filed: 09/06/21 14:13> Course <Balbir Pelayo - Last Filed: 09/06/21 14:13> Vital Signs 09/06/21 09/06/21 09/06/21 11:24 11:28 11:36 Temperature 98.0 F Pulse Rate 90 Respiratory 24 Rate Blood Pressure 163/58 O2 Sat by Pulse 91 L 80 L 93 L Oximetry 09/06/21 09/06/21 09/06/21 11:42 12:00 14:14 Temperature Pulse Rate 71 73 88 Respiratory 18 Rate Blood Pressure 181/70 O2 Sat by Pulse 93 L Oximetry - Reevaluation(s) Reevaluation #1: 09/06/21 13:55 Patient refuses admission, requests for hospice consultation. Patient will be evaluated in the emergency department for possible hospice. (Balbir Pelayo) EKG Findings - EKG Comments: EKG Findings:: EKG: Sinus rhythm with sinus arrhythmia, rate of 81, [place] interval 1:15, QRS duration 76, QTC [address] segment elevation. <Balbir Pelaoy - Last Filed: 09/06/21 14:13> Medical Decision Making - Lab Data Result diagrams: 09/06/21 11:54 09/06/21 11:54 <GitaBalbir Fátima - Last Filed: 09/06/21 14:13> - Lab Data Result diagrams: 09/06/21 11:54 09/06/21 11:54 <Emery Gomez - Last Filed: 09/06/21 15:32> - Medical Decision Making 76-year-old female presenting with increased cough, dyspnea, lower extremity swelling. Patient is in moderate distress with hypoxia upon arrival. She is on home oxygen. She is alert and oriented. Workup is initiated, chest x-ray showing fluid overload, she has an elevated BNP. She is anemic which is stable. She has a BNP of 3190. I did recommend admission for IV diuresis and treatment of COPD exacerbation. Patient is accompanied by her son. She is declining admission at this time. She wishes to be discharged. Again she is alert and oriented and is aware that she has several issues that do require hospitalization. She requests hospice care. The son is involved with the entire discussion. Again the patient is refusing admission at this time and requesting hospice evaluation. (Balbir Pelayo) - Lab Data Lab Results 09/06/21 09/06/21 09/06/21 Range/Units 11:54 11:54 11:54 WBC 7.3 (3.8-10.6) k/uL RBC 3.10 L (3.80-5.40) m/uL Hgb 8.6 L (11.4-16.0) gm/dL Hct 29.9 L (34.0-46.0) % MCV 96.4 (80.0-100.0) fL MCH 27.7 (25.0-35.0) pg MCHC 28.8 L (31.0-37.0) g/dL RDW 17.5 H (11.5-15.5) % Plt Count 356 (150-450) k/uL MPV 8.2 Neutrophils % 82 % Lymphocytes % 10 % Monocytes % 5 % Eosinophils % 1 % Basophils % 1 % Neutrophils # 6.0 (1.3-7.7) k/uL Lymphocytes # 0.7 L (1.0-4.8) k/uL Monocytes # 0.3 (0-1.0) k/uL Eosinophils # 0.1 (0-0.7) k/uL Basophils # 0.1 (0-0.2) k/uL Hypochromasia Marked Anisocytosis Slight Macrocytosis Slight PT (9.0-12.0) sec INR (<1.2) APTT (22.0-30.0) sec Sodium 135 L (137-145) mmol/L Potassium 4.4 (3.5-5.1) mmol/L Chloride 95 L (98-107) mmol/L Carbon Dioxide 35 H (22-30) mmol/L Anion Gap 5 mmol/L BUN 17 (7-17) mg/dL Creatinine 0.76 (0.52-1.04) mg/dL Est GFR (CKD-EPI)AfAm 89 (>60 ml/min/1.73 sqM) Est GFR (CKD-EPI)NonAf 77 (>60 ml/min/1.73 sqM) Glucose 112 H (74-99) mg/dL Plasma Lactic Acid Clay 0.8 (0.7-2.0) mmol/L Calcium 8.2 L (8.4-10.2) mg/dL Magnesium 1.9 (1.6-2.3) mg/dL Total Bilirubin 0.4 (0.2-1.3) mg/dL AST 14 (14-36) U/L ALT 10 (4-34) U/L Alkaline Phosphatase 82 (38-126) U/L Troponin I (0.000-0.034) ng/mL NT-Pro-B Natriuret Pep pg/mL Total Protein 5.4 L (6.3-8.2) g/dL Albumin 3.0 L (3.5-5.0) g/dL 09/06/21 09/06/21 09/06/21 Range/Units 11:54 11:54 12:28 WBC (3.8-10.6) k/uL RBC (3.80-5.40) m/uL Hgb (11.4-16.0) gm/dL Hct (34.0-46.0) % MCV (80.0-100.0) fL MCH (25.0-35.0) pg MCHC (31.0-37.0) g/dL RDW (11.5-15.5) % Plt Count (150-450) k/uL MPV Neutrophils % % Lymphocytes % % Monocytes % % Eosinophils % % Basophils % % Neutrophils # (1.3-7.7) k/uL Lymphocytes # (1.0-4.8) k/uL Monocytes # (0-1.0) k/uL Eosinophils # (0-0.7) k/uL Basophils # (0-0.2) k/uL Hypochromasia Anisocytosis Macrocytosis PT 10.3 (9.0-12.0) sec INR 0.9 (<1.2) APTT 24.8 (22.0-30.0) sec Sodium (137-145) mmol/L Potassium (3.5-5.1) mmol/L Chloride (98-107) mmol/L Carbon Dioxide (22-30) mmol/L Anion Gap mmol/L BUN (7-17) mg/dL Creatinine (0.52-1.04) mg/dL Est GFR (CKD-EPI)AfAm (>60 ml/min/1.73 sqM) Est GFR (CKD-EPI)NonAf (>60 ml/min/1.73 sqM) Glucose (74-99) mg/dL Plasma Lactic Acid Clay (0.7-2.0) mmol/L Calcium (8.4-10.2) mg/dL Magnesium (1.6-2.3) mg/dL Total Bilirubin (0.2-1.3) mg/dL AST (14-36) U/L ALT (4-34) U/L Alkaline Phosphatase (38-126) U/L Troponin I <0.012 (0.000-0.034) ng/mL NT-Pro-B Natriuret Pep 3190 pg/mL Total Protein (6.3-8.2) g/dL Albumin (3.5-5.0) g/dL Disposition Is patient prescribed a controlled substance at d/c from ED?: No Time of Disposition: 14:15 <Balbir Pelayo - Last Filed: 09/06/21 14:13> Is patient prescribed a controlled substance at d/c from ED?: No <Emery Gomez - Last Filed: 09/06/21 15:32> Clinical Impression: Anemia, Congestive heart failure, Acute exacerbation of chronic obstructive pulmonary disease Disposition: HOME SELF-CARE Condition: Poor Instructions (If sedation given, give patient instructions): Heart Failure (ER) Referrals: Medhat Sykes DO [Primary Care Provider] - 1-2 days
[2021-09-06] MEDS ORDERED: FUROSEMIDE 10 MG/ML 4 ML VIAL IV STA (13:03)
[2021-09-06 13:48] VITALS: TEMP 98
[2021-09-06 14:17] VITALS: RESP 18
[2021-09-06] MEDS ORDERED: ALPRAZolam 0.5 MG TAB PO STA (17:22)
[2021-09-06 19:26] VITALS: BP 144/56; PULSE 99
== END 2021-09-06 19:55 | disposition home or self-care (01) ==
LOC: EC 11:22
DX: J44.1 Chronic obstructive pulmonary disease with (acute) exacerbation (principal); D64.9 Anemia, unspecified; I11.0 Hypertensive heart disease with heart failure; I50.9 Heart failure, unspecified; S00.83XA Contusion of other part of head, initial encounter; I48.91 Unspecified atrial fibrillation; E78.5 Hyperlipidemia, unspecified; K21.9 Gastro-esophageal reflux disease without esophagitis; F41.9 Anxiety disorder, unspecified; F17.200 Nicotine dependence, unspecified, uncomplicated; Z86.73 Personal history of transient ischemic attack (TIA), and cerebral infarction without residual deficits; Z79.82 Long term (current) use of aspirin; Z79.51 Long term (current) use of inhaled steroids; Z79.02 Long term (current) use of antithrombotics/antiplatelets; Z79.899 Other long term (current) drug therapy; Z88.5 Allergy status to narcotic agent; Z99.81 Dependence on supplemental oxygen; W19.XXXA Unspecified fall, initial encounter
CPT/HCPCS: 36415; 94640; 93005; 83880; 80053; 83605; 83735; 84484; 85025; 85610; 85730; 71046; 70450; 99285; 96374; 96375; J1940; J2930